=== PATIENT | male | born 1950 | race Caucasian/White ===

== ENCOUNTER → 2024-03-17 09:18 | Outpatient (REF) | payer MEDICARE, BC, SELFPAY ==
[2024-03-17 11:48] LABS: % Basophils 0.2 % (0-2); % Eosinophils 1.5 % (0-6); % Immature Granulocytes 0.2 % (0-0.5); % Lymphocytes 15.5 % (20.5-51.1); % Monocytes 5.7 % (1.7-9.3); % Neutrophils 76.9 % (42.2-75.2); Absolute Eosinophils 0.2 10^3/uL (0-0.7); Absolute Lymphocytes 1.5 10^3/uL (1.2-3.4); Absolute Monocytes 0.6 10^3/uL (0.1-0.6); Absolute Neutrophils 7.4 10^3/uL (1.4-6.5); Hematocrit 47.6 % (39.0-52.0); Hemoglobin 16.2 g/dL (13.0-18.0); Mean Corpuscular Hgb 30.5 pg (27.0-31.0); Mean Corpuscular Volume 89.5 fL (80.0-94.0); Nucleated Red Blood Cells % 0 % (-); Platelet Count 191 10^3/uL (130-400); Red Blood Cell Count 5.32 10^6/uL (4.70-6.10); Red Cell Dist. Width 12.5 % (11.5-14.5); White Blood Cell Count 9.7 10^3/uL (4.8-10.8)
[2024-03-17 12:05] LABS: ALT (SGPT) < 10 U/L (0-50); AST (SGOT) 21 U/L (17-59); Albumin 4.3 g/dl (3.5-5.0); Blood Urea Nitrogen 28 mg/dl (9-20); Calcium 9.4 mg/dl (8.4-10.2); Carbon Dioxide 32 mmol/L (22-30); Chloride 100 mmol/L (98-107); Glucose 112 mg/dl (70-99); HDL Cholesterol 48 mg/dl; LDL Cholesterol, Calculated 70 mg/dl; Phosphorus 2.9 mg/dl (2.5-4.5); Potassium 3.9 mmol/L (3.5-5.1); Sodium 140 mmol/L (135-145); Total Cholesterol 131 mg/dl (50-199); Triglyceride 67 mg/dl (10-149); Very Low Density Lipoprotein 13 mg/dl (0-30); eGFR > 60.00
== END ==
LOC: HWLAB 09:18
PROVIDERS: ATTENDING PHYSICIAN Internal Medicine Cardiovascular Disease; FAMILY PHYSICIAN Family Medicine
DX: I10 Essential (primary) hypertension (principal); D68.69 Other thrombophilia; E78.5 Hyperlipidemia, unspecified
CPT/HCPCS: 36415; 80061; 80069; 84450; 84460; 85025

== ENCOUNTER → 2024-05-10 14:35 | Outpatient (REF) | payer MEDICARE, BC, SELFPAY ==
[2024-05-10 15:55] LABS: Erythrocyte Sed Rate 9 mm/hour (0-20)
[2024-05-10 16:03] LABS: ALT (SGPT) 11 U/L (0-50); AST (SGOT) 21 U/L (17-59); Albumin 4.2 g/dl (3.5-5.0); Alkaline Phosphatase 70 U/L (38-126); Blood Urea Nitrogen 26 mg/dl (9-20); Calcium 9.3 mg/dl (8.4-10.2); Carbon Dioxide 29 mmol/L (22-30); Chloride 100 mmol/L (98-107); Glucose 127 mg/dl (70-99); Potassium 4.1 mmol/L (3.5-5.1); Sodium 138 mmol/L (135-145); Total Bilirubin 0.7 mg/dl (0.2-1.3); Total Protein 6.9 g/dl (6.3-8.2); eGFR > 60.00
[2024-05-10 16:20] LABS: Vitamin D, 25-OH*** 37.7 ng/mL (30-80)
[2024-05-10 16:33] LABS: TSH 1.64 uIU/ml (0.47-4.68)
[2024-05-10 17:09] LABS: Folate 6.6 ng/ml (2.76-20); Vitamin B12 292 pg/ml (239-931)
== END ==
LOC: REG 14:35
PROVIDERS: ATTENDING PHYSICIAN Psychiatry & Neurology Neurology; FAMILY PHYSICIAN Family Medicine
DX: G20.A1 Parkinson's disease without dyskinesia, without mention of fluctuations (principal); I10 Essential (primary) hypertension; I48.20 Chronic atrial fibrillation, unspecified; R60.0 Localized edema; D51.9 Vitamin B12 deficiency anemia, unspecified; Z79.899 Other long term (current) drug therapy; Z78.9 Other specified health status
CPT/HCPCS: 36415; 80053; 82306; 82607; 82652; 82746; 84425; 84443; 85652; 86141

== ENCOUNTER → 2024-05-13 11:37 | Outpatient (REF) | payer MEDICARE, BC, SELFPAY ==
[2024-05-13 13:35] LABS: Urine Albumin Negative (Neg - Trace); Urine Bilirubin Negative (Negative); Urine Character Clear (Clear); Urine Color Yellow; Urine Glucose Negative (Negative); Urine Ketone 1+ (Negative); Urine Leukocyte Negative (Negative); Urine Nitrite Negative (Negative); Urine Occult Blood Negative (Negative); Urine Specific Gravity 1.015 (<1.030); Urine Urobilinogen Negative (Neg - 1+)
[2024-05-13 15:56] LABS: Urine Sodium 201 mmol/L (30-90)
== END ==
LOC: REG 11:37
PROVIDERS: ATTENDING PHYSICIAN Psychiatry & Neurology Neurology; FAMILY PHYSICIAN Family Medicine
DX: G20.A1 Parkinson's disease without dyskinesia, without mention of fluctuations (principal)
CPT/HCPCS: 81003; 82570; 84300

== ENCOUNTER → 2024-05-31 07:22 | Outpatient (REF) | payer MEDICARE, BC, SELFPAY | LOC: DHCBC/DCA 07:22 | PROVIDERS: ATTENDING PHYSICIAN Internal Medicine Cardiovascular Disease; FAMILY PHYSICIAN Family Medicine | DX: Z01.810 Encounter for preprocedural cardiovascular examination (principal); R06.09 Other forms of dyspnea | CPT/HCPCS: 78452; 93017; A9500; J2785 ==

== ENCOUNTER → 2024-06-03 13:57 | Outpatient (REF) | payer MEDICARE, BC, SELFPAY | LOC: HWRCS 13:57 | PROVIDERS: ATTENDING PHYSICIAN Internal Medicine Cardiovascular Disease; FAMILY PHYSICIAN Family Medicine | DX: Z01.810 Encounter for preprocedural cardiovascular examination (principal); R06.09 Other forms of dyspnea | CPT/HCPCS: 93306 ==

== ENCOUNTER → 2024-07-12 09:55 | Outpatient (REF) | payer MEDICARE, BC, SELFPAY | LOC: RCS 09:55 | PROVIDERS: ATTENDING PHYSICIAN Internal Medicine Cardiovascular Disease; FAMILY PHYSICIAN Family Medicine | DX: R00.1 Bradycardia, unspecified (principal); R42 Dizziness and giddiness | CPT/HCPCS: 93225; 93226 ==

== ENCOUNTER → 2024-07-21 14:32 | Outpatient (REF) | payer MEDICARE, BC, SELFPAY ==
[2024-07-21 15:39] LABS: % Basophils 0.3 % (0-2); % Eosinophils 5.5 % (0-6); % Immature Granulocytes 0.8 % (0-0.5); % Lymphocytes 18.8 % (20.5-51.1); % Monocytes 7.9 % (1.7-9.3); % Neutrophils 66.7 % (42.2-75.2); Absolute Eosinophils 0.3 10^3/uL (0-0.7); Absolute Immature Granulocytes 0.1 10^3/uL (0-0.05); Absolute Lymphocytes 1.2 10^3/uL (1.2-3.4); Absolute Monocytes 0.5 10^3/uL (0.1-0.6); Absolute Neutrophils 4.2 10^3/uL (1.4-6.5); Hematocrit 45.9 % (39.0-52.0); Hemoglobin 15.8 g/dL (13.0-18.0); Mean Corp Hgb Conc. 34.4 g/dL (33.0-37.0); Mean Corpuscular Hgb 30.5 pg (27.0-31.0); Mean Corpuscular Volume 88.6 fL (80.0-94.0); Mean Platelet Volume 9.8 fL (7.4-10.4); Nucleated Red Blood Cells % 0 % (-); Platelet Count 164 10^3/uL (130-400); Red Blood Cell Count 5.18 10^6/uL (4.70-6.10); Red Cell Dist. Width 12.8 % (11.5-14.5); White Blood Cell Count 6.2 10^3/uL (4.8-10.8)
[2024-07-21 16:29] LABS: ALT (SGPT) < 10 U/L (0-50); AST (SGOT) 20 U/L (17-59); Albumin 4.3 g/dl (3.5-5.0); Alkaline Phosphatase 70 U/L (38-126); Blood Urea Nitrogen 19 mg/dl (9-20); Calcium 9.2 mg/dl (8.4-10.2); Carbon Dioxide 27 mmol/L (22-30); Chloride 96 mmol/L (98-107); Glucose 116 mg/dl (70-99); Potassium 3.7 mmol/L (3.5-5.1); Sodium 135 mmol/L (135-145); Total Protein 6.8 g/dl (6.3-8.2); eGFR > 60.00
== END ==
LOC: REG 14:32
PROVIDERS: ATTENDING PHYSICIAN Nurse Practitioner Family; FAMILY PHYSICIAN Family Medicine
DX: G20.A1 Parkinson's disease without dyskinesia, without mention of fluctuations (principal); R41.0 Disorientation, unspecified
CPT/HCPCS: 36415; 80053; 85025

== ENCOUNTER → 2024-07-28 11:25 | Outpatient (REF) | payer MEDICARE, BC, SELFPAY | LOC: RAD 11:25 | PROVIDERS: ATTENDING PHYSICIAN Nurse Practitioner Family; FAMILY PHYSICIAN Family Medicine | DX: R41.0 Disorientation, unspecified (principal); G20.A1 Parkinson's disease without dyskinesia, without mention of fluctuations | CPT/HCPCS: 70470; Q9967 ==

== ENCOUNTER 2024-10-03 15:09 | Emergency (ER) | payer MEDICARE, BC, SELFPAY ==
[2024-10-03 15:15] VITALS: BP 146/80
--- NOTE | 2024-10-03 16:56 | ED.GENMED ---
History of Present Illness
General
Chief Complaint: Head Injury
Source: patient and spouse
Time Seen by Provider: 10/03/24 16:46
History of Present Illness
History of Present Illness:
73-year-old male with past medical history of Parkinson's disease, atrial fibrillation and hyperlipidemia presenting to the emergency department for evaluation after he accidentally tripped on the carpet falling forward onto the left side of his
face, left shoulder and knee. brought patient to the ER after she noticed the contusion just above the left orbit with concern for head injury. Patient states his knee and shoulder otherwise feel fine. There was no loss of consciousness,
vomiting, visual changes or any other injury sustained.
Past History
Past History
ED Past Medical History: Arrthythmia (afib on Coumadin), Asthma, HTN and Hypercholesterolemia
ED Past Surgical History: Appendectomy
Social History
Tobacco: Non-smoker
Alcohol: None
Drug: None
Personal:
Living: with family
Employment: Employed
Review of Systems
Review of Systems
All Other Systems: ROS reviewed and negative except as documented in HPI and ROS
Phy Exam
Physical Exam
Physical Exam:
GENERAL: Alert , in no apparent distress
EYE: conjunctiva clear, EOMI, pupils 4mm b/l
Head: contusion just proximal to superior orbit
NECK: Supple,
ENT: mmm.
LUNGS: no acute respiratory distress
NEUROLOGICAL: Alert and oriented
SKIN: Warm and dry, abrasion to left anterior knee
MUSCULOSKELETAL: well perfused. able to ROM left shoulder at baseline which is slightly limited due to known rotator cuff injury
PSYCH: Normal and appropriate interaction.
Scores
Heart Failure Risk
Heart Failure Risk Score: Not Applicable
Heart Score for Chest Pain Patients
STEMI patient?: Not applicable
Withdrawal Assessment of Alcohol
Withdrawal Assessment Completed?: Not applicable
Course
Orders/Labs/Results
Orders:
Orders
10/03/24 15:19
CT Head W/o Iv Contrast Urgent
Comment:
Reason For Exam: injury, fall
Vital Signs
Initial and Last Documented VS:
Initial Vital Signs
Temp Pulse Resp BP Pulse Ox
97.6 F 65 18 146/80 99
10/03/24 15:15 10/03/24 15:15 10/03/24 15:15 10/03/24 15:15 10/03/24 15:15
Last Documented Vital Signs
Temp Pulse Resp BP Pulse Ox
97.6 F 65 18 146/80 99
10/03/24 15:15 10/03/24 15:15 10/03/24 15:15 10/03/24 15:15 10/03/24 15:15
MDM/Problems Addressed
Differential Diagnosis Includes:
Minor head injury/contusion, concussion, intracranial bleeding, superficial abrasion
MDM/Problems Addressed:
73-year-old male presenting to the emergency department for evaluation following head injury that occurred in accidental trip and fall. Patient on Eliquis. Head CT ordered which is ultimately negative for any acute intracranial pathology. Patient
feels well and is requesting to be discharged home. Return precautions discussed. Patient to continue taking Eliquis as directed.
Chronic conditions affecting care: Arrhythmia
*Radiology
Radiology exam reviewed: radiology read reviewed
*Pulse Oximetry
Patient hypoxic: no
*Critical Care Note
Total Time (30-74mins, 75-104mins- exclusive of procedures): Not Applicable
ED Attending Note
-
Portions of this chart may have been created with voice recognition software.� Occasional wrong word or��sound alike� substitutions may have occurred due to the inherent limitations of voice recognition software.
Discharge Plan
Departure
Patient Disposition: Home (Routine Discharge)
Date of Disposition: 10/03/24
Time of Disposition: 16:56
Patient with high blood pressure during this ER visit?: No
Discharge Problem:
Head injury, Abrasion of knee, left
Instructions: Head Injury in Adults (DC)
Prescriptions:
No Action
warfarin [Coumadin] 6 MG tablet
6 mg PO DAILY
diltiazem HCl 120 MG capsule,ext.rel 24h degradable
120 mg PO DAILY
gabapentin 100 MG capsule
100 mg PO TID
Interventions
Interventions:
*Risk Screen - Suicide Last Done: 10/03/24 15:17
*General Assessment Last Done: 10/03/24 15:16
*Neglect/Abuse Screening Last Done: 10/03/24 15:17
*ED COVID-19 Vaccine History Last Done: 10/03/24 15:17
*Nursing Disposition Last Done: 10/03/24 17:05
ED- Neurological Assessment Last Done: 10/03/24 16:46
ED-Skin Assessment Last Done: 10/03/24 16:46
Discharge Date and Time
Discharge Date/Time: 10/03/24 17:26
Print Language: GHANAIAN
== END 2024-10-03 17:26 | disposition home or self-care (01) ==
LOC: EMR 15:09
PROVIDERS: EMERGENCY PHYSICIAN Emergency Medicine
DX: S00.83XA Contusion of other part of head, initial encounter (principal); S80.212A Abrasion, left knee, initial encounter; W01.0XXA Fall on same level from slipping, tripping and stumbling without subsequent striking against object, initial encounter; G20.A1 Parkinson's disease without dyskinesia, without mention of fluctuations; I48.91 Unspecified atrial fibrillation; E78.00 Pure hypercholesterolemia, unspecified; I10 Essential (primary) hypertension; J45.909 Unspecified asthma, uncomplicated; Z79.01 Long term (current) use of anticoagulants
CPT/HCPCS: 99284; 70450

== ENCOUNTER 2025-02-19 07:33 | Emergency (ER) | payer MEDICARE, BC, SELFPAY ==
[2025-02-19 07:38] VITALS: BP 115/63
[2025-02-19 07:40] VITALS: BMI 41.3
[2025-02-19 08:00] VITALS: BP 104/51
[2025-02-19 08:54] LABS: Hematocrit 42.8 % (39.0-52.0); Hemoglobin 14.4 g/dL (13.0-18.0); Mean Corp Hgb Conc. 33.6 g/dL (33.0-37.0); Mean Corpuscular Volume 88.6 fL (80.0-94.0); Nucleated Red Blood Cells % 0 % (-); Platelet Count 144 10^3/uL (130-400); Red Cell Dist. Width 13.3 % (11.5-14.5)
[2025-02-19] MEDS: NSS 250 IV (08:57)
[2025-02-19 09:00] VITALS: BP 113/65
[2025-02-19 09:21] LABS: ALT (SGPT) 19 U/L (0-50); AST (SGOT) 28 U/L (17-59); Albumin 3.9 g/dl (3.5-5.0); Alkaline Phosphatase 99 U/L (38-126); Blood Urea Nitrogen 23 mg/dl (9-20); Calcium 9.1 mg/dl (8.4-10.2); Carbon Dioxide 26 mmol/L (22-30); Chloride 106 mmol/L (98-107); Estimated Creatinine Clearance 79 ml/min; Glucose 126 mg/dl (70-99); Potassium 4.4 mmol/L (3.5-5.1); Sodium 139 mmol/L (135-145); Total Protein 6.4 g/dl (6.3-8.2); eGFR > 60.00
--- NOTE | 2025-02-19 09:39 | ED.GENMED ---
History of Present Illness
General
Chief Complaint: Fall
Source: patient
Exam Limitations: none
Time Seen by Provider: 02/19/25 08:06
Nursing documentation reviewed up to this point in time: agreed with
History of Present Illness
History of Present Illness:
see MDM
Past History
Past History
ED Past Medical History: Arrthythmia (afib on Coumadin), Asthma, HTN and Hypercholesterolemia
ED Past Surgical History: Appendectomy
Social History
Tobacco: Non-smoker
Alcohol: None
Drug: None
Personal:
Living: with family
Employment: Employed
Review of Systems
Review of Systems
Allergies reviewed?: Yes
All Other Systems: Not applicable
Phy Exam
Physical Exam
Physical Exam:
see MDM
Course
Orders/Labs/Results
Orders:
Orders
02/19/25 07:[address] [CT Head W/o Iv Contrast] Urgent
Comment:
Reason For Exam: fall on eliquis
02/19/25 08:34
Knee, Left 4 or More Views [CR Knee - Left 4 Or More View*] Urgent
Comment:
Reason For Exam: anterior knee pain, fall parkinsons
Knee, Right 4 or More Views [CR Knee- Right 4 Or More View*] Urgent
Comment:
Reason For Exam: knee pain fall parkinsons
02/19/25 08:35
0.9% Sodium Chloride 250 ml [Nss] 250 ml IV BOLUS
02/19/25 08:40
Complete Blood Count/With Diff Urgent
Comprehensive Metabolic Panel Urgent
Abnormal Lab Results
02/19/25
08:40
Abs Immat Gran (auto) 0.1 H 10^3/uL
(0-0.05)
Absolute Neuts (auto) 7.1 H 10^3/uL
(1.4-6.5)
Absolute Lymphs (auto) 0.9 L 10^3/uL
(1.2-3.4)
Immature Gran % 0.6 H %
(0-0.5)
Neutrophils % 81.0 H %
(42.2-75.2)
Lymphocytes % 10.7 L %
(20.5-51.1)
BUN 23 H mg/dl
(9-20)
Glucose 126 H mg/dl
(70-99)
02/19/25 08:40
02/19/25 08:40
Vital Signs
Initial and Last Documented VS:
Initial Vital Signs
Temp Pulse Resp BP Pulse Ox
36.8 C 63 16 115/63 97
02/19/25 07:38 02/19/25 07:38 02/19/25 07:38 02/19/25 07:38 02/19/25 07:38
Last Documented Vital Signs
Temp Pulse Resp BP Pulse Ox
36.8 C 66 16 128/73 100
02/19/25 07:38 02/19/25 10:12 02/19/25 08:02 02/19/25 10:00 02/19/25 10:00
MDM/Problems Addressed
Differential Diagnosis Includes:
see MDM
MDM/Problems Addressed:
Note:
CHIEF COMPLAINT(S)
Fall with suspected knee injury and decreased urine output.
HISTORY OF PRESENT ILLNESS
The patient is a 74-year-old male with a known history of Parkinsons disease who experienced a fall this morning. pt has no concept of time usually and was up and about early this morning. has cameras in the house which captured him around 630
am in the living room without his cane which he is supposed to use. after that she cannot see him on camera.
around 730 am pt's neighbor called 911 after hearing pt brissa for help.
was notified by family that he had fallen and she came to him.
he says he was trying to get back into the house after being outside and stepped up the 2 steps but fell onto his knees. he was kneeling there for a little while and tried then to use his elbows to push himself up but slipped and hit his forehead
and nose on the door jam.
no LOC
The patient denies any facial or neck pain following the fall. He expresses feeling more tired than usual, attributing it to the mornings events, stating, 'I feel tired...I think it has been raised for a lot.' The knees were bruised and red,
suspected due to pressure from the fall.
Post-fall, the patient denies any pain in the abdomen, chest, or other areas. However, adalberto says the past few days he has been a little 'off' and she wonders if either he is dehydrated or has a UTI.
it has been more challenging to get him to drink fluids
she does not feel that he is acutely altered currently
no fever, chills.
ADDITIONAL HISTORY OBTAINED FROM SOURCES OTHER THAN THE PATIENT
A neighbor reported hearing the patient call for help and subsequently called 911. The patients son, an officer, was notified through the alert system and informed the family about the 911 call.
SOCIAL DETERMINANTS AFFECTING HEALTH
The patient�s son works as an officer in the area and was informed about the 911 call via the alert system. This implies some level of support available through family members.
REVIEW OF SYSTEMS
- Constitutional: Increased fatigue, potential dehydration.
- Musculoskeletal: Bruised and red knees noted post-fall.
- Genitourinary: Darker urine reported.
- Neurological: Reports of altered mental status over the last few days.
PHYSICAL EXAM
- Nursing notes reviewed and vital signs reviewed.
GENERAL: Alert , in no apparent distress
HEAD: R forehead hematoma with abrasion superficial mild tenderness
NECK: no midline tenderness, active ROM intact, no paraspinal muscle tenderness;
EYE: pupils equal and reactive, EOMs intact.
ENT: o/p clr, mmm. no hemotympanum
nasal bridge abrasion, nontender nasal bones; no epistaxis
CARDIAC: Regular rate and rhythm, no edema
LUNGS: Clear breath sounds bilaterally, no acute respiratory distress, no wheezes/rales/rhonchi
ABDOMEN: Soft, without focal tenderness, no r/g, no cvat
NEUROLOGICAL: Alert and oriented, no focal neuro deficits, CN intact, 5/5 strength, sensation intact, parkinsons speech
SKIN: Warm and dry, abrasion/hematoma forehead, nose and knees B/L
MUSCULOSKELETAL: redness and abrasions to b/l anterior knees; no swelling
able to flex knees
no hip tenderness, hips normal
PSYCH: Normal and appropriate interaction.
PLAN
1. Obtain x-rays of the knees to assess for any structural damage due to the fall.
2. Conduct laboratory tests to evaluate potential dehydration and altered mental status.
3. Initiate a straight catheterization to obtain a urine sample for analysis, given the patient�s report of darker urine.
DIFFERENTIAL DIAGNOSIS
The Differential Diagnosis includes, in no particular order and is not limited to:
1. Musculoskeletal injury due to fall
2. Urinary tract infection
3. Dehydration
4. Acute renal failure
5. Rhabdomyolysis
6. Secondary neurological changes due to Parkinson�s disease
7. Metabolic disturbance
8. Orthostatic hypotension
9. Syncope
10. Medication side effects
Note:
Disposition:
SUMMARY OF ENCOUNTER
The patient, a 74-year-old male with a history of Parkinsons disease, presented to the emergency department following a fall. The fall occurred early in the morning when the patient, without his cane, attempted to step into his house and landed on
his knees. Additionally, he fell forward, hitting his face on the ground but did not lose consciousness. His neighbor heard him calling for help and called 911. Paramedics were present and lifted him up. On physical examination, he had abrasions on
his knees, a forehead hematoma, and a superficial abrasion on his nose, but no facial bony tenderness. The patient denied significant knee pain, hip pain, or headache. His mental status was at baseline, though his noted increased confusion over
the past few days. His also expressed concern about potential dehydration due to difficulty in fluid intake. Laboratory tests showed his blood urea nitrogen (BUN) was at baseline (23 mg/dL) with no fever or leukocytosis. Although IV fluids were
administered, his ultimately declined straight catheterization for a urine sample. They plan to follow up with their family physician to provide a urine sample collected at home for possible evaluation of dehydration or urinary issues. The
patient will be assessed for standing before discharge.
ASSESSMENT
The patient was assessed for potential musculoskeletal injury from the fall, possible dehydration, and differential mental status changes related to Parkinson�s disease.
PLAN
1. Ensure patient can stand safely before discharge.
2. Discharge with instructions to follow up with the family physician for collection of a urine sample to assess for dehydration or urinary tract infection.
INDEPENDENT REVIEW OF LABS AND INTERPRETATION OF TESTS
My independent review of BUN indicates it is at baseline (23 mg/dL), and his complete blood count shows no elevated white count.
MEDICATION RECONCILIATION
Administered IV fluids in the emergency department.
MEDICAL DECISION MAKING
- Complexity of Data Reviewed: Chronic conditions affecting care: Parkinson�s disease. Differential Diagnosis includes musculoskeletal injury due to fall, urinary tract infection, dehydration, acute renal failure, secondary neurological changes due
to Parkinson�s disease, and potential metabolic disturbance.
- Data:
- Category 2: Clinical information was obtained from an independent historian. The patients provided details about altered mental status and concerns about dehydration.
- Category 3: Discussion of management with the patients regarding follow-up plans and decision to collect a urine sample at home.
- Risk: Consideration of Admission/Observation: Escalation of care including admission/observation was considered given the complexity and risk of the patients presenting complaint, exam findings, and underlying comorbidities. However, ultimately it
was decided the patient is safe for outpatient management with close follow-up. Reasoning: Work-up did not reveal any acute life/organ-threatening processes, the patients symptoms were well-controlled upon reevaluation, reexamination was reassuring,
vitals were stable, and the patient and family were agreeable with discharge and reliable for follow-up.
DIAGNOSIS
- Fall-related musculoskeletal injury, unspecified � ICD-10 code W19.XXXA
- Dehydration � ICD-10 code E86.0
- Parkinsons disease � ICD-10 code G20
*Pulse Oximetry
SaO2: 98
Oxygen Mode of Delivery: Room air
Patient hypoxic: no (100)
*Critical Care Note
Total Time (30-74mins, 75-104mins- exclusive of procedures): Not Applicable
ED Attending Note
-
Portions of this chart may have been created with voice recognition software.� Occasional wrong word or��sound alike� substitutions may have occurred due to the inherent limitations of voice recognition software.
Discharge Plan
Departure
Patient Disposition: Home (Routine Discharge)
Date of Disposition: 02/19/25
Time of Disposition: 09:53
Patient with high blood pressure during this ER visit?: No
Condition: Fair
Covid-19: Not Applicable
Discharge Problem:
Fall, Minor closed head injury, Contusion of knee
Instructions: Head Injury in Adults (DC), Contusion (DC)
Prescriptions:
No Action
warfarin [Coumadin] 6 MG tablet
6 mg PO DAILY
diltiazem HCl 120 MG capsule,ext.rel 24h degradable
120 mg PO DAILY
gabapentin 100 MG capsule
100 mg PO TID
Referrals:
Berenice Senior MD [Family Provider, Family Practice] - Follow up in 2-3 days
Activity Restrictions/Additional Instructions:
Your CAT scan of your brain was negative for any signs of trauma. Your x-rays of your knee showed no fractures. THE RADIOLOGIST WILL LOOK AT THESE TODAY AND WE WILL CALL IF THEY SEE ANY ABNORMALITIES. You have some bruising and abrasions. Keep
them clean and dry. Ice off-and-on. Tylenol for pain. The blood work was fairly reassuring and you are not significantly dehydrated
Follow-up with your family doctor. Make sure to use your cane.
GET YOUR URINE CHECKED IF YOU CONTINUE TO HAVE ANY CONFUSION/SYMPTOMS
WE OFFERED TESTING TODAY BUT YOU DEFERRED
RETURN FOR: FEVER, VOMITING, CONFUSION, WEAKNESS, INABILTIY TO WALK, HEADACHE OR ANY CONCERNS.
Interventions
Interventions:
*Risk Screen - Suicide Last Done: 02/19/25 07:40
*General Assessment Last Done: 02/19/25 07:38
*Neglect/Abuse Screening Last Done: 02/19/25 07:40
*ED- Fall Risk Assessment Last Done: 02/19/25 07:38
*ED COVID-19 Vaccine History Last Done: 02/19/25 07:38
*Nursing Disposition Last Done: 02/19/25 10:12
ED-Musculoskeletal Assessment Last Done: 02/19/25 07:40
ED- Neurological Assessment Last Done: 02/19/25 07:40
ED-Skin Assessment Last Done: 02/19/25 07:40
Discharge Date and Time
Discharge Date/Time: 02/19/25 10:13
Print Language: CUBAN
[2025-02-19 10:00] VITALS: BP 128/73
== END 2025-02-19 10:13 | disposition home or self-care (01) ==
LOC: EMR 07:33
PROVIDERS: Physician Assistant; EMERGENCY PHYSICIAN Emergency Medicine; FAMILY PHYSICIAN Family Medicine
DX: S09.90XA Unspecified injury of head, initial encounter (principal); S80.02XA Contusion of left knee, initial encounter; S80.01XA Contusion of right knee, initial encounter; I48.91 Unspecified atrial fibrillation; I10 Essential (primary) hypertension; E78.00 Pure hypercholesterolemia, unspecified; J45.909 Unspecified asthma, uncomplicated; G20.A1 Parkinson's disease without dyskinesia, without mention of fluctuations; Z79.01 Long term (current) use of anticoagulants; W01.198A Fall on same level from slipping, tripping and stumbling with subsequent striking against other object, initial encounter; Y93.01 Activity, walking, marching and hiking; Y92.008 Other place in unspecified non-institutional (private) residence as the place of occurrence of the external cause
CPT/HCPCS: 99284; 96360; 70450; 73564; 80053; 85025

== ENCOUNTER 2025-04-11 07:58 | Emergency (ER) | payer MEDICARE, BC, SELFPAY ==
[2025-04-11 08:01] VITALS: BP 149/80
[2025-04-11 10:06] VITALS: BMI 39.6
[2025-04-11 10:09] VITALS: BP 144/68
--- NOTE | 2025-04-11 10:22 | ED.GENMED ---
History of Present Illness
General
Chief Complaint: Head Injury
Source: patient and spouse
Exam Limitations: none
Time Seen by Provider: 04/11/25 09:57
History of Present Illness
History of Present Illness:
74yoM with a history of atrial fibrillation on Eliquis and deep brain stimulator for tremor presenting with his for evaluation of a head injury about 4 hours ago. Patient was standing and leaning forward trying to take off his shirt when he
lost his balance and fell forward. He struck his head on a space heater. There was no loss of consciousness. Patient currently has a slight headache but is otherwise asymptomatic. He denies any neck or back pain. He has had 4 falls within the
past 2 months. He is scheduled to see his food specialist later this week to discuss possible Watchman procedure so that he may get off of the Eliquis. He has home PT/OT twice weekly.
Past History
Past History
ED Past Medical History: Arrthythmia (afib on Coumadin), Asthma, HTN and Hypercholesterolemia
ED Past Surgical History: Appendectomy
Social History
Tobacco: Non-smoker
Alcohol: None
Drug: None
Personal:
Living: with family
Employment: Employed
Phy Exam
General Physical Exam
General Presentation: well appearing and no apparent distress
General Skin: warm and dry
General Habitus: normal and elderly
General Mental: alert
ENT Exam
ENT Exam: other (Minor frontal abrasions)
Eye Exam
Eye Exam: PERRL and conjunctiva normal
Pulmonary Exam
Pulmonary Exam: lungs clear, no respiratory distress, no rales, chest non tender, no crackles, no rhonchi and no wheezing
Gastrointestinal Exam
Gastrointestinal Exam: non tender and soft
Neurological Exam
Neurological Exam: alert
Bath Coma Scale
Eye Opening: Spontaneous
Verbal Response: Oriented
Motor Response: Obeys Commands
GCS Total Score: 15
Musculoskeletal Exam
Musculoskeletal Exam: other (No C/T/L spine tenderness)
Skin Exam
Skin Exam: normal color and warm/dry
Psychiatric Exam
Psychiatric Exam: normal mood/affect
Course
Orders/Labs/Results
Orders:
Orders
04/11/25 08:04
CT Head W/o Iv Contrast Urgent
Comment:
Reason For Exam: fall on eliquis
Cervical Spine wo Contrast CT [CT Cervical Spine W/o Iv Contr] Urgent
Comment:
Reason For Exam: fall on eliquis
Vital Signs
Initial and Last Documented VS:
Initial Vital Signs
Temp Pulse Resp BP Pulse Ox
97.5 F 60 16 149/80 97
04/11/25 08:01 04/11/25 08:01 04/11/25 08:01 04/11/25 08:01 04/11/25 08:01
Last Documented Vital Signs
Temp Pulse Resp BP Pulse Ox
97.5 F 69 18 144/86 98
04/11/25 08:01 04/11/25 10:09 04/11/25 10:09 04/11/25 10:49 04/11/25 10:45
MDM/Problems Addressed
Differential Diagnosis Includes:
74yoM here after a fall. Leaning forward taking shirt off when he lost his balance and fell. +Head strike. On Eliquis. Minor headache but otherwise asymptomatic. He is awake and alert. Minor frontal abrasions on exam without other signs of injury.
Differential diagnosis includes: closed head injury, concussion, intracranial hemorrhage, fracture
CT head and cervical spine obtained which are negative for injuries. and patient not interested in short term rehab and he participates in home PT/OT twice weekly. Patient stable for discharge with PCP f/u.
*Pulse Oximetry
SaO2: 99
Oxygen Mode of Delivery: Room air
Patient hypoxic: no
*Critical Care Note
Total Time (30-74mins, 75-104mins- exclusive of procedures): Not Applicable
ED Attending Note
-
Portions of this chart may have been created with voice recognition software.� Occasional wrong word or��sound alike� substitutions may have occurred due to the inherent limitations of voice recognition software.
Discharge Plan
Departure
Patient Disposition: Home (Routine Discharge)
Date of Disposition: 04/11/25
Time of Disposition: 10:39
Patient with high blood pressure during this ER visit?: Yes
Discharge Problem:
Ground-level fall, Closed head injury
Instructions: Head Injury in Adults (DC), Preventing falls in adults
Prescriptions:
No Action
warfarin [Coumadin] 6 MG tablet
6 mg PO DAILY
diltiazem HCl 120 MG capsule,ext.rel 24h degradable
120 mg PO DAILY
gabapentin 100 MG capsule
100 mg PO TID
Referrals:
Berenice Senior MD [Family Provider, Family Practice]
Activity Restrictions/Additional Instructions:
Imaging did not show any brain bleed or fractures.
Please follow-up with your family doctor. Return to the ER with any new or worsening symptoms.
Interventions
Interventions:
*Risk Screen - Suicide Last Done: 04/11/25 08:01
*General Assessment Last Done: 04/11/25 10:10
*Neglect/Abuse Screening Last Done: 04/11/25 08:01
*ED- Fall Risk Assessment Last Done: 04/11/25 10:10
*ED COVID-19 Vaccine History Last Done: 04/11/25 10:10
*ED Influenza Vaccine History Last Done: 04/11/25 10:10
*Nursing Disposition Last Done: 04/11/25 10:52
ED- Neurological Assessment Last Done: 04/11/25 10:12
ED-Skin Assessment Last Done: 04/11/25 10:12
Discharge Date and Time
Discharge Date/Time: 04/11/25 11:05
Print Language: [email or web address]
[2025-04-11 10:49] VITALS: BP 144/86
== END 2025-04-11 11:05 | disposition home or self-care (01) ==
LOC: EMR 07:58
PROVIDERS: EMERGENCY PHYSICIAN Emergency Medicine; FAMILY PHYSICIAN Family Medicine
DX: S09.90XA Unspecified injury of head, initial encounter (principal); W01.198A Fall on same level from slipping, tripping and stumbling with subsequent striking against other object, initial encounter; E78.00 Pure hypercholesterolemia, unspecified; I10 Essential (primary) hypertension; J45.909 Unspecified asthma, uncomplicated; I48.91 Unspecified atrial fibrillation; Z79.01 Long term (current) use of anticoagulants; Z96.82 Presence of neurostimulator
CPT/HCPCS: 99284; 70450; 72125

== ENCOUNTER 2025-04-24 08:41 | Inpatient (IN) | payer MEDICARE, BC, SELFPAY ==
[2025-04-20 11:24] VITALS: BP 152/81
--- NOTE | 2025-04-20 12:40 | ED.GENMED ---
History of Present Illness
General
Chief Complaint: Change in Mental Status
Time Seen by Provider: 04/20/25 12:12
History of Present Illness
History of Present Illness:
74-year-old male with history of Parkinson's presents with his daughter for evaluation of mental status change worsening over the past 2 weeks. Daughter states that he has become increasingly less functional and more confused than normal. No
longer talking to the same degree from his baseline. Had a fall just over 1 week ago and was seen in the emergency department a negative CT scan. His outpatient neurologist through [facility] had requested he come to the emergency department and be
admitted for observation due to the worsening functional status. The patient offers no complaints at this time
Past History
Past History
ED Past Medical History: Arrthythmia (afib on Coumadin), Asthma, HTN and Hypercholesterolemia
ED Past Surgical History: Appendectomy
Social History
Tobacco: Non-smoker
Alcohol: None
Drug: None
Personal:
Living: with family
Employment: Employed
Review of Systems
Review of Systems
Allergies reviewed?: Yes
All Other Systems: ROS reviewed and negative except as documented in HPI and ROS
Phy Exam
Physical Exam
Physical Exam:
GEN: Well appearing, NAD, WDWN
HEENT: Oral mucosa moist, no scleral icterus
Cardiac: Regular rate
Lung: No respiratory distress, no tachypnea
MSK: No gross deformity or injuries
Skin: Good color, no pallor or jaundice, no rashes
Neuro: Alert, oriented to self place and time, follows commands, moves all extremities freely, symmetric strength of bilateral upper and lower extremities
Psych: Calm, cooperative
Course
Orders/Labs/Results
Orders:
Orders
04/20/25 12:41
0.9% Sodium Chloride 1000 ml [Nss] 1,000 ml IV BOLUS
04/20/25 12:57
Complete Blood Count/With Diff Urgent
Comprehensive Metabolic Panel Urgent
Urinalysis Reflex To Culture Urgent
Date Specimen was Collected: 04/20/25
Time Specimen was Collected: 12:46
Abnormal Lab Results
04/20/25
12:57
Absolute Monos (auto) 0.7 H 10^3/uL
(0.1-0.6)
Lymphocytes % 18.9 L %
(20.5-51.1)
Carbon Dioxide 32 H mmol/L
(22-30)
Glucose 102 H mg/dl
(70-99)
04/20/25 12:57
04/20/25 12:57
Vital Signs
Initial and Last Documented VS:
Initial Vital Signs
Temp Pulse Resp BP Pulse Ox
97.6 F 57 18 152/81 98
04/20/25 11:24 04/20/25 11:24 04/20/25 11:24 04/20/25 11:24 04/20/25 11:24
Last Documented Vital Signs
Temp Pulse Resp BP Pulse Ox
97.6 F 57 18 151/71 98
04/20/25 11:24 04/20/25 11:24 04/20/25 11:24 04/20/25 13:07 04/20/25 14:00
MDM/Problems Addressed
MDM/Problems Addressed:
Patient with worsening mental status could be related to increased Seroquel recently. Outpatient neurologist requesting admission for MRI and medication titrations as he is not safe at home currently
*Pulse Oximetry
SaO2: 98
Oxygen Mode of Delivery: Room air
Patient hypoxic: no
*Critical Care Note
Total Time (30-74mins, 75-104mins- exclusive of procedures): Not Applicable
ED Attending Note
-
Portions of this chart may have been created with voice recognition software.� Occasional wrong word or��sound alike� substitutions may have occurred due to the inherent limitations of voice recognition software.
Discharge Plan
Departure
Patient Disposition: Admit
Date of Disposition: 04/20/25
Time of Disposition: 15:51
Admit to: Med/Surg
Presentation/result/management discussed w/ accepting MD/DO: Hospitalist
Discharge Problem:
Acute alteration in mental status
Prescriptions:
No Action
warfarin [Coumadin] 6 MG tablet
6 mg PO DAILY
diltiazem HCl 120 MG capsule,ext.rel 24h degradable
120 mg PO DAILY
gabapentin 100 MG capsule
100 mg PO TID
Referrals:
UNKNOWN - PT DOES,NOT KNOW [Family Provider]
Interventions
Interventions:
*Risk Screen - Suicide Last Done: 04/20/25 11:24
*General Assessment Last Done: 04/20/25 11:24
ED- Pulmonary Assessment Last Done: 04/20/25 11:57
ED- Neurological Assessment Last Done: 04/20/25 11:57
ED- Cardiac Assessment Last Done: 04/20/25 11:57
ED Swallowing Screen Last Done: 04/20/25 11:58
Discharge Date and Time
Print Language: SERBIAN
[2025-04-20] MEDS: NSS 1000 IV (12:58)
[2025-04-20 13:07] VITALS: BP 151/71
[2025-04-20 13:31] LABS: Hematocrit 48.0 % (39.0-52.0); Hemoglobin 15.9 g/dL (13.0-18.0); Mean Corp Hgb Conc. 33.1 g/dL (33.0-37.0); Mean Corpuscular Volume 90.9 fL (80.0-94.0); Nucleated Red Blood Cells % 0 % (-); Platelet Count 157 10^3/uL (130-400); Red Cell Dist. Width 13.0 % (11.5-14.5)
[2025-04-20 13:38] LABS: ALT (SGPT) < 10 U/L (0-50); AST (SGOT) 20 U/L (17-59); Albumin 4.3 g/dl (3.5-5.0); Alkaline Phosphatase 74 U/L (38-126); Blood Urea Nitrogen 15 mg/dl (9-20); Calcium 9.1 mg/dl (8.4-10.2); Carbon Dioxide 32 mmol/L (22-30); Chloride 99 mmol/L (98-107); Glucose 102 mg/dl (70-99); Potassium 4.6 mmol/L (3.5-5.1); Sodium 138 mmol/L (135-145); Total Protein 7.1 g/dl (6.3-8.2); eGFR > 60.00
[2025-04-20 14:00] VITALS: BP 147/86
[2025-04-20 14:28] LABS: Urine Character Clear (Clear)
--- NOTE | 2025-04-20 16:22 | HPS.HSE ---
Family Physician
-
Family Physician: NOT KNOW UNKNOWN - PT DOES
Chief Complaint
-
encephelopathy
History of Present Illness
74-year-old male past medical history of Parkinson disease, atrial fibrillation on Coumadin, presenting for change in mental status worsening over the past 2 weeks.
Over the past 2 weeks patient has had progressive episodes of confusion, memory impairment. He has also had agitation and sundowning at nighttime. He has had difficulties with memory for the past year. He has been off balance and unable to
ambulate. He has been having visual hallucinations. Recently his neurologist Dr. Roman increased his Seroquel to 100 mg at night.
He has also had weakness of his right lower extremity with foot drag for the past several weeks. No headache or visual symptoms or slurred speech or difficulty speaking.
He had a fall 1 week ago and was seen in the emergency room with negative CT scan of the head.
He was also had shortness of breath with exertion. No fevers or cough.
Patient saw his neurologist today Dr. Roman at [facility] who wanted him to be admitted for further workup and inability to take care of himself.
Medical History
Past Medical History
Past Medical History: Reports Other ( Parkinson disease, atrial fibrillation on Coumadin,)
Past Surgical History: Reports Other (hernia repair, appendcetomy )
Social History
Tobacco: Non-smoker
Alcohol: None
Drug: None
Family History
Family History: Not pertinent
Allergies / Home Medications
Allergies reflects when Allergies were last updated in [employer].
Home Medications with original date entered in [employer]
Allergy/Medication List:
Allergies
Allergy/AdvReac Type Severity Reaction Status Date / Time
benzonatate (From Tessalon Allergy Unknown Verified 04/20/25 11:24
Perles)
chlorhexidine Allergy Rash Verified 04/20/25 11:24
rotigotine Allergy Unknown Verified 04/20/25 11:24
Home Medications
apixaban 5 mg tablet (Eliquis) 5 mg PO BID 04/20/25
atorvastatin 10 mg tablet 10 mg PO DAILY 04/20/25
carbidopa 25 mg-levodopa 100 mg tablet 2 tab PO 0800,1200,1600,199904/20/25
cholecalciferol (vitamin D3) 25 mcg (1,000 unit) chewable tablet (Vitamin D3) 25 mcg PO DAILY@159904/20/25
clonazepam 0.5 mg tablet 0.5 mg PO QPM 04/20/25
clonazepam 1 mg tablet 1 mg PO DAILY@199904/20/25
clonazepam 1 mg tablet 1 mg PO HSPRN PRN repeat dose if wakes up during sleep 04/20/25
melatonin 5 mg tablet 10 mg PO HS 04/20/25
pimavanserin 34 mg capsule (Nuplazid) 34 mg PO DAILY@159904/20/25
quetiapine 25 mg tablet 100 mg PO DAILY@199904/20/25
sertraline 100 mg tablet 100 mg PO DAILY 04/20/25
Review of Systems
-
History Source: Patient
A 12 point ROS was completed and negative except as noted: Yes
Constitutional: Reports No Symptoms
EENT: Reports No Symptoms
Respiratory: Reports No Symptoms
Cardiac: Reports No Symptoms
Abdomen/GI: Reports No Symptoms
: Reports No Symptoms
Musculoskeletal: Reports No Symptoms
Skin: Reports No Symptoms
Neurological: Reports No Symptoms
Endocrine: Reports No Symptoms
Hematologic/Lymphatic: Reports No Symptoms
Psych: Reports No Symptoms
Physical Exam
Vital Signs
Vital Signs
Temp Pulse Resp BP Pulse Ox
97.6 F 57 18 151/71 98
04/20/25 11:24 04/20/25 11:24 04/20/25 11:24 04/20/25 13:07 04/20/25 14:00
Physical Exam
General: Well Developed, Well Nourished and No Apparent Distress
HEENT: NormoCephalic, Moist mucous membranes and Atraumatic
Respiratory: Clear
Cardiac: S1/S2 and Regular Rhythm; No Murmur or Rub
GI: Soft, Non Tender, Non Distended and Normal Bowel Sounds; No Organomegaly
Rectal: Deferred by Provider
Musculoskeletal: No Clubbing, No Cyanosis and No Edema
Skin: No Rash
Neuro: Nonfocal/grossly intact
Laboratory Results
-
04/20/25 12:57
04/20/25 12:57
Laboratory Results
Total Bilirubin 0.7 mg/dl (0.2-1.3) 04/20/25 12:57
AST 20 U/L (17-59) 04/20/25 12:57
ALT < 10 U/L (0-50) 04/20/25 12:57
Alkaline Phosphatase 74 U/L (38-126) 04/20/25 12:57
Data Reviewed
-
Lab Data: Labs Reviewed by me
Old Records: Reviewed
Impression/Plan
-
IMPRESSION:
PLAN:
# Acute metabolic encephalopathy possibly polypharmacy versus suspected worsening dementia likely Lewy body dementia
# Weakness of right lower extremity
-Urinalysis negative
-ER spoke with Dr. Roman who recommended MRI brain and decreasing Seroquel
-Decrease Seroquel from 100 mg back to 50 mg
- Check MRI brain to rule out CVA
- PT OT
# Ongoing dyspnea on exertion
- Check cardiac BNP, chest x-ray
- Pulse oximetry
- May need outpatient sleep study
History of Parkinson's disease status post deep brain stimulation
- Continue carbidopa levodopa, nuplazid
- Continue clonazepam, sertraline
Atrial fibrillation
- Continue Coumadin
Full code
DVT prophylaxis�Coumadin
Regular diet
[2025-04-20 18:55] VITALS: BP 148/90
[2025-04-20] MEDS: KLONOPIN 1 MG PO (20:01)
[2025-04-20] MEDS: SEROQUEL 50 MG PO (20:01)
[2025-04-20] MEDS: ELIQUIS 5 MG PO (20:01)
[2025-04-20] MEDS: SINEMET 25-100 2 TABLET PO (20:01)
[2025-04-20] MEDS: KLONOPIN PO (20:02)
[2025-04-20 20:28] VITALS: BMI 41.3
[2025-04-20] MEDS: MELATONIN 10 MG PO (21:23)
[2025-04-20 23:17] VITALS: BP 112/59
[2025-04-21 03:00] VITALS: BP 150/92
[2025-04-21 06:05] LABS: Hematocrit 45.8 % (39.0-52.0); Hemoglobin 15.4 g/dL (13.0-18.0); Mean Corp Hgb Conc. 33.6 g/dL (33.0-37.0); Mean Corpuscular Volume 91.1 fL (80.0-94.0); Nucleated Red Blood Cells % 0 % (-); Platelet Count 161 10^3/uL (130-400); Red Cell Dist. Width 13.0 % (11.5-14.5)
[2025-04-21 06:28] LABS: Blood Urea Nitrogen 12 mg/dl (9-20); Calcium 9.2 mg/dl (8.4-10.2); Carbon Dioxide 28 mmol/L (22-30); Chloride 101 mmol/L (98-107); Estimated Creatinine Clearance 99 ml/min; Glucose 105 mg/dl (70-99); Potassium 4.2 mmol/L (3.5-5.1); Sodium 134 mmol/L (135-145); eGFR > 60.00
[2025-04-21 07:33] VITALS: BP 159/87
[2025-04-21] MEDS: SINEMET 25-100 2 TABLET PO ×4 (08:17→20:02)
[2025-04-21] MEDS: ZOLOFT 100 MG PO (08:18)
[2025-04-21] MEDS: LIPITOR 10 MG PO (08:18)
[2025-04-21] MEDS: ELIQUIS 5 MG PO ×2 (08:18→20:01)
--- NOTE | 2025-04-21 09:49 | CON.NEURO4 ---
Addendum entered and electronically signed by Tian Sandhu MD 04/21/25 20:12:
The patient was seen and examined today along with the nurse practitioner Rosalba Mark, and I agree with her assessment and plan. Given below is my addendum.
The patient is a 74 years old male with a past medical history of Parkinson's disease, status post deep brain stimulator implantation in June 2024, who presented with cognitive decline including sundowning, visual hallucinations and also
worsening of gait and falls.
On neurologic examination the patient is alert, he is oriented x 3, he knows his age, speech is clear, and he has antigravity strength in bilateral upper and lower extremities. The patient has cogwheel rigidity present in bilateral upper
extremities and also has rest tremor of the hands bilaterally.
The patient's son was present at the bedside and he thought that the patient's mental status was better today than when he came to the hospital.
MRI of the brain did not show an acute intracranial abnormality.
The plan is to continue Sinemet at the preadmission dose. Consider to decrease the dose of Sinemet if possible.
Continue Nuplazid.
Reduce the dose of Seroquel down to 50 mg at bedtime
PT/OT evaluation
Original Note:
Consultation - Neurology 4
-
CONSULTING PHYSICIAN: Tian Sandhu MD
REFERRING PHYSICIAN: Hospitalists/Dr. Patricio
DICTATED BY: KENY Delgadillo
DATE/TIME OF REQUEST: 04/21/25
DATE/TIME OF CONSULTATION: 04/21/25
Reason for Consultation: Hallucinations, confusion, gait dysfunction
History of Present Illness:
This is a 74-year-old male who has presented to the hospital with report of persistent confusion, hallucinations, and gait abnormality. Patient is follow as an outpatient by Neurology Dr. Waleska Roman for advanced Parkinson's disease.
From outpatient evaluation by Neurology Dr. Roman on 01/27/25:
'
'
Per the patient's son at bedside, about two weeks ago the patient became confused and started hallucinating, and this has not resolved yet. He does not recognize his own house and he's seeing people. It's typical for him to have intermittent
hallucinations but they usually resolve quickly. He has been taking Nuplazid for at least the past year. He also notes that his balance has been poor and it seems like his right leg is dragging for the past few weeks. He fell one week ago and was
evaluated here in the ER, CT head 04/11/25 was negative for any acute abnormalities. He was evaluated in the Neurology office yesterday and referred to the ER to rule out any other contributing factors to his mental status decline. His Seroquel dose
was also decreased from 100mg to 50mg nightly. Patient denies any headache, dizziness, vision changes, speech/swallow difficulty, numbness, and weakness. He is taking carbidopa/levodopa 25/100 2 tablets four times per day.
Past Medical History: Parkinson's disease, Afib (apixaban), HTN, HLD, asthma
Surgical History: Deep brain stimulator, hernia repair, appendectomy.
Family History: Reviewed and noncontributory.
Social History: Denies tobacco, alcohol, and illicit drug use.
Allergies: Rotigotine, chlorhexidine, benzonatate.
Home Medications: See below.
Review of Symptoms:
Patient denies any fever, headache, chest pain, shortness of breath, GI or symptoms.
�Per the HPI.�All systems are reviewed negative except above.
Physical Exam:
The patient is afebrile, abdomen is nondistended, breathing is unlabored, skin is warm and dry, scab left knee.
Neurologic Examination:
The patient is awake, alert and oriented x 3 currently. He is able to follow commands and answer questions appropriately. There is no aphasia or dysarthria. On cranial nerve assessment, pupils are 3 mm bilateral, round and reactive to light and
accommodation. Visual schultz are full. Extraocular movements are intact. Facial sensations are intact and bilaterally symmetrical, there is no facial asymmetry. Hearing is intact bilaterally to normal conversation volume. Tongue palate and uvula are
midline. Sternocleidomastoid strengths are full bilaterally. Motor strengths are 5/5 bilateral upper and lower extremities on medical research [place] scale. There is no drift. There is an intermittent low amplitude semi rhythmic tremor in distal
LUE at rest. +Cogwheeling in BUE. Sensation of touch is intact and bilaterally symmetrical. Coordination is intact by finger to nose bilaterally.
Lab Results: See below.
Neuro Imaging:
1. CT head 04/11/25: Deep brain stimulator is present with resultant streak artifact. No evidence for acute intracranial abnormality.
Differentials for the patient's presentation include:
1. Change in mental status; uncertain etiology, possibilities include further progression of neurodegenerative disorder, Parkinson's disease, vs toxic metabolic encephalopathy or structural brain abnormality contributing to symptoms.
Patient has the following risk factors for their symptoms: Advanced PD
Recommendations:
-MRI brain noncontrast pending.
-Continue home apixaban.
-Infectious/metabolic workup per primary team.
-Continue Sinemet 25/100 2 tablets four times a day. Consideration for adjustment of PD medications as an outpatient.
-Vitamin B12 level is low at 343, goal is >400. Initiate cyanocobalamin 1000mcg PO daily.
-PT/OT/ST evaluations.
Discussed patient care with: Dr. Sandhu, the patient, patient's son.
Vital Signs and Labs
-
Vital Signs and Labs:
Vital Signs
Temp Pulse Resp BP Pulse Ox
98.6 F 67 18 121/66 98
04/21/25 11:29 04/21/25 11:29 04/21/25 11:29 04/21/25 11:29 04/21/25 11:29
Lab Results
04/21/25 05:31
04/21/25 05:31
Sodium 134 mmol/L (135-145) L 04/21/25 05:31
Potassium 4.2 mmol/L (3.5-5.1) 04/21/25 05:31
BUN 12 mg/dl (9-20) 04/21/25 05:31
Glucose 105 mg/dl (70-99) H 04/21/25 05:31
Calcium 9.2 mg/dl (8.4-10.2) 04/21/25 05:31
Ddd-S-Otrlfvpqent Pept 736 pg/ml 04/20/25 12:57
Medications
-
Active Medications
Generic Name Dose Route Start Last Admin
Trade Name Freq PRN Reason Stop Dose Admin
Apixaban 5 mg 04/20/25 20:00 04/21/25 08:18
Apixaban (Eliquis) 5 Mg Tablet PO 05/18/25 19:59 5 mg
BID KALIN Administration
Atorvastatin Calcium 10 mg 04/21/25 08:00 04/21/25 08:18
Atorvastatin (Lipitor) 10 Mg Tablet PO 05/19/25 07:59 10 mg
DAILY KALIN Administration
Carbidopa/Levodopa 2 tablet 04/20/25 20:00 04/21/25 12:04
Carbidopa (25 Mg)/Levodopa (100 Mg) Regular Release Tablet PO 05/18/25 19:59 2 tablet
0800,1200,1600,2000 KALIN Administration
Cholecalciferol 25 mcg 04/21/25 16:00
Cholecalciferol (Vitamin D3) 25 Mcg Tablet (1,000 Units) PO 05/19/25 15:59
DAILY@1600 KALIN
Clonazepam 1 mg 04/20/25 17:56
Clonazepam 1 Mg Tablet PO 05/18/25 17:55
HSPRN PRN
repeat dose if wakes up during
Clonazepam 0.5 mg 04/20/25 18:00 04/20/25 20:02
Clonazepam 0.5 Mg Tablet PO 05/18/25 17:59 Not Given
QPM KALIN
Clonazepam 1 mg 04/20/25 20:00 04/20/25 20:01
Clonazepam 1 Mg Tablet PO 05/18/25 19:59 1 mg
DAILY@2000 KALIN Administration
Melatonin 10 mg 04/20/25 22:00 04/20/25 21:23
Melatonin 5 Mg Tablet PO 05/18/25 21:59 10 mg
HS KALIN Administration
Pimavanserin [ 0 mg 04/21/25 16:00
Nuplazid] 34 Mg PO 05/19/25 15:59
Capsule Po Daily@ DAILY@1600 KALIN
1600
Quetiapine Fumarate 50 mg 04/20/25 20:00 04/20/25 20:01
Quetiapine 25 Mg Tablet PO 05/18/25 19:59 50 mg
DAILY@1999 KALIN Administration
Sertraline HCl 100 mg 04/21/25 08:00 04/21/25 08:18
Sertraline 100 Mg Tablet PO 05/19/25 07:59 100 mg
DAILY KALIN Administration
Sodium Chloride 0 flush 04/20/25 18:00
Sodium Chloride 0.9% (Flush) Syringe IV 05/18/25 17:59
PER PROTOCOL KALIN
Home Medications
�Medication �Instructions �Recorded
apixaban 5 mg tablet (Eliquis) 5 mg PO BID Blood Clot 04/20/25
Prevention/Tx
atorvastatin 10 mg tablet 10 mg PO DAILY High Cholesterol 04/20/25
carbidopa 25 mg-levodopa 100 mg 2 tab PO 0800,1200,1600,199904/20/25
tablet parkinsons
cholecalciferol (vitamin D3) 25 25 mcg PO DAILY@1600 Supplement 04/20/25
mcg (1,000 unit) chewable tablet
(Vitamin D3)
clonazepam 0.5 mg tablet 0.5 mg PO QPM Mental Health/Anxiety 04/20/25
clonazepam 1 mg tablet 1 mg PO DAILY@1999 Mental 04/20/25
Health/Anxiety
clonazepam 1 mg tablet 1 mg PO HSPRN PRN repeat dose if 04/20/25
wakes up during sleep
melatonin 5 mg tablet 10 mg PO HS Sleep 04/20/25
pimavanserin 34 mg capsule 34 mg PO DAILY@1600 Mental 04/20/25
(Nuplazid) Health/Anxiety
quetiapine 25 mg tablet 100 mg PO DAILY@1999 Mental 04/20/25
Health/Anxiety
sertraline 100 mg tablet 100 mg PO DAILY Mental 04/20/25
Health/Anxiety
[2025-04-21 09:54] LABS: Hepatitis C Antibody Negative (Negative)
[2025-04-21 10:34] LABS: Glycohemoglobin (HgbA1c) 5.7 % (4.0-5.9)
[2025-04-21 11:29] VITALS: BP 121/66
--- NOTE | 2025-04-21 12:10 | CM ---
Addendum entered by Conner Zhang 04/21/25 12:50:
CM checked with [facility] and was told he is not a member of their ACO.
Original Note:
CM following re: discharge planning.
Reviewed pt's chart, met with pt. Pt's daughter and son a bedside.
Pt is a 74 year old male, admitted with OBS status and primary dx of Acute metabolic encephalopathy possibly polypharmacy versus suspected worsening dementia likely Lewy body dementia. OBS status explained to the pt and his family, they are aware of
limitations of navigating next level of care, [facility] letter signed, placed on chart, pt has a copy.
Per daughter, pt lives with spouse and a son in a 2SH, 2 steps to enter, has 4 supportive children. Per daughter, pt usually uses a cane, has a walker and per daughter pt will need to go to a SNF for a short term rehab or to [facility].
Differences between SNF and acute rehab explained to pt's family. OBS status will limit pt's ability to go to a SNF and pt's family expressed their disappointed feelings. CM will check to whether or not pt is a member of [facility]CO. Per daughter,
pt does not have financial resources to pay privately for SNF level of care.
PT and OT will evaluate the pt to determine a level of care at discharge.
Pharmacy: [facility].
D/c plan: uncertain at this time.
CM will follow with discharge plan updates as hospitalization progresses
[2025-04-21 12:42] LABS: Ferritin 185.0 ng/ml (17.9-464.0)
[2025-04-21 13:13] LABS: Folate 4.7 ng/ml (2.76-20); Vitamin B12 343 pg/ml (239-931)
--- NOTE | 2025-04-21 14:01 | W.PN.HOSP.TC ---
Today's Communication/Plan
-
PT/OT and physiatry evaluation
Monitor cognitive status with reduced dose of Seroquel
Assessment / Plan
Assessment / Plan
Impression:
74 years old male with Parkinson disease presents with cognitive and motor decline.
Other conditions
Paroxysmal atrial fibrillation.
Anticoagulation with apixaban
Essential hypertension
Dyslipidemia
Mild intermittent asthma
Plan
74 years old patient with Parkinson's disease status post deep brain stimulator implantation June 2024 presents with cognitive decline including sundowning, visual hallucinations as well as motor decline with worsening of gait, falls, concern for
right lower extremity weakness.
Initial workup with no evidence of infection or metabolic abnormalities
Nontoxic-appearing
Neurologic exam with patient alert awake and negative x 3. Resting tremor mostly pronounced in the left upper extremity with no other focal abnormality. Ataxic shuffling gait.
Imaging with MRI of the brain showed no focal intracranial abnormalities
Neurology evaluation appreciated
Continue carbidopa levodopa at preadmission dose.
Continue Nuplazid.
Reduce Seroquel down to 50 mg at bedtime
Continue sertraline and clonazepam
PT/OT evaluation
Physiatry evaluation with consideration of acute rehab
Paroxysmal atrial fibrillation.
Not on rate control medications [employer].
Continue thromboembolic prophylaxis with apixaban.
Dyslipidemia on atorvastatin
Anticipated Discharge: 24 - 48 hours
Subjective/Interval History
-
Date of Service: April 21, 2025
Objective Data
-
Labs:
Laboratory Results
04/21/25
05:31
WBC 9.9
Hgb 15.4
Hct 45.8
Plt Count 161
Sodium 134 L
Potassium 4.2
Chloride 101
Carbon Dioxide 28
BUN 12
Creatinine 0.8
Glucose 105 H
Calcium 9.2
Vital Signs:
Vital Signs
Temp Pulse Resp BP Pulse Ox
98.6 F 67 18 121/66 98
04/21/25 11:29 04/21/25 11:29 04/21/25 11:29 04/21/25 11:29 04/21/25 11:29
I&O
04/20/25 04/21/25 04/22/25
06:59 06:59 06:59
Intake Total 240 / 240
Balance 240 / 240
Physical Exam
-
General: Well Developed and No Apparent Distress
HEENT: Normocephalic, Atraumatic and Moist Mucous Membranes
Respiratory: Clear to Auscultation
Cardiac: Regular Rhythm and S1/S2; Negative Murmur, Rub or Gallop
GI: Soft, Nontender, Nondistended and Normal Bowel Sounds; Negative Organomegaly
Rectal: Deferred by Provider
Musculoskeletal: No Clubbing, No Cyanosis and No Edema
Skin: Negative Rash
Neuro: Awake, Alert, Oriented, AO x 3, Tremors (Resting rolling tremor mostly pronounced on the left upper extremity) and Nonfocal/Grossly Intact
[2025-04-21 15:52] VITALS: BP 140/68
[2025-04-21] MEDS: KLONOPIN 0.5 MG PO (17:03)
[2025-04-21] MEDS: VITAMIN B-12 1000 MCG PO (17:03)
[2025-04-21] MEDS: VITAMIN D3 (cholecalciferol) 25 MCG PO (17:03)
[2025-04-21 19:09] VITALS: BP 129/67
[2025-04-21] MEDS: KLONOPIN 1 MG PO (20:01)
[2025-04-21] MEDS: SEROQUEL 50 MG PO (20:01)
[2025-04-21] MEDS: MELATONIN 10 MG PO (21:31)
[2025-04-21 23:13] VITALS: BP 114/62
[2025-04-22] VITALS (8 sets, daily range): BP systolic 101–151; BP diastolic 53–80; PULSE 64–76; O2SAT 95; BMI 40.8
[2025-04-22] MEDS: VITAMIN B-12 1000 MCG PO (09:15)
[2025-04-22] MEDS: LIPITOR 10 MG PO (09:15)
[2025-04-22] MEDS: ELIQUIS 5 MG PO ×2 (09:15→19:47)
[2025-04-22] MEDS: ZOLOFT 100 MG PO (09:15)
[2025-04-22] MEDS: SINEMET 25-100 2 TABLET PO ×4 (09:21→19:55)
--- NOTE | 2025-04-22 10:41 | W.PN.HOSP.TC ---
Today's Communication/Plan
-
PT/OT
Assessment / Plan
Assessment / Plan
Gen-awake, alert, NAD
HEENT-NC, AT, anicteric, clear oral mm
Neck-supple
CV-reg, no M, +S1/S2
Lungs-clear B/L
Abd-soft, NT, ND
Ext-no edema
Musculoskeletal-no cyanosis, clubbing
Skin-warm and dry
Neuro-grossly non-focal
Psych-calm, cooperative
Impression:
74 years old male with Parkinson disease presents with cognitive and motor decline.
Other conditions
Paroxysmal atrial fibrillation.
Anticoagulation with apixaban
Essential hypertension
Dyslipidemia
Mild intermittent asthma
Plan
74 years old patient with Parkinson's disease status post deep brain stimulator implantation June 2024 presents with cognitive decline including sundowning, visual hallucinations as well as motor decline with worsening of gait, falls, concern for
right lower extremity weakness.
Initial workup with no evidence of infection or metabolic abnormalities
Nontoxic-appearing
Neurologic exam with patient alert awake and negative x 3. Resting tremor mostly pronounced in the left upper extremity with no other focal abnormality. Ataxic shuffling gait.
Imaging with MRI of the brain showed no focal intracranial abnormalities
Neurology evaluation appreciated
Continue carbidopa levodopa at preadmission dose.
Continue Nuplazid.
Reduced Seroquel down to 50 mg at bedtime
Continue sertraline and clonazepam
PT/OT evaluation
Physiatry evaluation with consideration of acute rehab
Suspect etiology for cognitive decline and motor dysfunction is progression of his underlying Parkinson's disease.
Paroxysmal atrial fibrillation.
Not on rate control medications [employer] ASSOCIATE.
Continue thromboembolic prophylaxis with apixaban.
Dyslipidemia on atorvastatin
Low end of normal range B12 level noted. Started on oral repletion.
Full code
updated at the bedside.
Anticipated Discharge: Within 24 hours
Subjective/Interval History
-
Date of Service: April 22, 2025
Patient seen and examined. No complaints.
Objective Data
-
Vital Signs:
Vital Signs
Temp Pulse Resp BP Pulse Ox
98.4 F 69 18 151/80 96
04/22/25 09:35 04/22/25 09:35 04/22/25 09:35 04/22/25 09:35 04/22/25 09:35
I&O
04/21/25 04/22/25 04/23/25
06:59 06:59 06:59
Intake Total 240 / 240 720 / 720
Balance 240 / 240 720 / 720
Review of Systems
-
History Source: Patient
All other systems: Reviewed and negative
--- NOTE | 2025-04-22 14:39 | W.PN.NEURO.1 ---
Today's Communication / Plan
-
Patient is more alert today as compared to yesterday.
MRI of the brain did not show an acute intracranial abnormality.
The plan is to continue Sinemet at the preadmission dose for now. Consider to decrease the dose of Sinemet if possible.
The plan is to further decrease the dose of Seroquel.
Continue Nuplazid.
PT/OT evaluation
Will sign off please call for any question.
Subjective/Objective
Subjective Data
Date of Service: April 22, 2025
The patient is more alert today and is able to communicate better as compared to yesterday.
The plan is to further decrease the dose of Seroquel.
Neurologic Examination:
The patient is alert and oriented to self person and place he knows. He knows the month and he also knows the name of the president. Speech is clear. He has antigravity strength in all extremities.
Objective Data
Vital Signs
Temp Pulse Resp BP Pulse Ox
36.8 C 75 18 126/67 95
04/22/25 11:43 04/22/25 11:43 04/22/25 11:43 04/22/25 11:43 04/22/25 11:43
Lab Results
04/21/25 05:31
04/21/25 05:31
Sodium 134 mmol/L (135-145) L 04/21/25 05:31
Potassium 4.2 mmol/L (3.5-5.1) 04/21/25 05:31
BUN 12 mg/dl (9-20) 04/21/25 05:31
Glucose 105 mg/dl (70-99) H 04/21/25 05:31
Calcium 9.2 mg/dl (8.4-10.2) 04/21/25 05:31
Mrq-D-Jppgvrhrpsq Pept 736 pg/ml 04/20/25 12:57
Vitamin B12 343 pg/ml (239-931) 04/21/25 05:31
Patient Allergies
benzonatate (From [facility]) Allergy (Verified 04/20/25 11:24)
Unknown
chlorhexidine Allergy (Verified 04/20/25 11:24)
Rash
rotigotine Allergy (Verified 04/20/25 11:24)
Unknown
Vital Signs and Labs
-
Vital Signs and Labs:
Vital Signs
Temp Pulse Resp BP Pulse Ox
36.8 C 76 18 142/79 95
04/22/25 15:43 04/22/25 15:43 04/22/25 15:43 04/22/25 15:43 04/22/25 16:03
Lab Results
04/21/25 05:31
04/21/25 05:31
Sodium 134 mmol/L (135-145) L 04/21/25 05:31
Potassium 4.2 mmol/L (3.5-5.1) 04/21/25 05:31
BUN 12 mg/dl (9-20) 04/21/25 05:31
Glucose 105 mg/dl (70-99) H 04/21/25 05:31
Calcium 9.2 mg/dl (8.4-10.2) 04/21/25 05:31
Itg-T-Yplfyfqpwef Pept 736 pg/ml 04/20/25 12:57
Vitamin B12 343 pg/ml (623-064) 04/21/25 05:31
Medications
-
Active Medications
Generic Name Dose Route Start Last Admin
Trade Name Freq PRN Reason Stop Dose Admin
Apixaban 5 mg 04/20/25 20:00 04/22/25 09:15
Apixaban (Eliquis) 5 Mg Tablet PO 05/18/25 19:59 5 mg
BID KALIN Administration
Atorvastatin Calcium 10 mg 04/21/25 08:00 04/22/25 09:15
Atorvastatin (Lipitor) 10 Mg Tablet PO 05/19/25 07:59 10 mg
DAILY KALIN Administration
Carbidopa/Levodopa 2 tablet 04/20/25 20:00 04/22/25 16:50
Carbidopa (25 Mg)/Levodopa (100 Mg) Regular Release Tablet PO 05/18/25 19:59 2 tablet
0800,1200,1600,1999 KALIN Administration
Cholecalciferol 25 mcg 04/21/25 16:00 04/22/25 16:48
Cholecalciferol (Vitamin D3) 25 Mcg Tablet (1,000 Units) PO 05/19/25 15:59 25 mcg
DAILY@1599 KALIN Administration
Clonazepam 1 mg 04/20/25 17:56
Clonazepam 1 Mg Tablet PO 05/18/25 17:55
HSPRN PRN
repeat dose if wakes up during
Clonazepam 0.5 mg 04/20/25 18:00 04/22/25 16:47
Clonazepam 0.5 Mg Tablet PO 05/18/25 17:59 0.5 mg
QPM KALIN Administration
Clonazepam 1 mg 04/20/25 20:00 04/21/25 20:01
Clonazepam 1 Mg Tablet PO 05/18/25 19:59 1 mg
DAILY@1999 KALIN Administration
Cyanocobalamin 1,000 mcg 04/21/25 13:45 04/22/25 09:15
Cyanocobalamin (Vitamin B-12) 500 Mcg Tablet PO 05/19/25 13:44 1,000 mcg
DAILY KALIN Administration
Melatonin 10 mg 04/20/25 22:00 04/21/25 21:31
Melatonin 5 Mg Tablet PO 05/18/25 21:59 10 mg
HS KALIN Administration
Miconazole Nitrate 0 applic 04/22/25 20:00
Miconazole Powder Bottle TOPICAL 05/20/25 19:59
BID KALIN
Pimavanserin [ 0 mg 04/21/25 16:00
Nuplazid] 34 Mg PO 05/19/25 15:59
Capsule Po Daily@ DAILY@1599 KALIN
1600
Quetiapine Fumarate 50 mg 04/20/25 20:00 04/21/25 20:01
Quetiapine 25 Mg Tablet PO 05/18/25 19:59 50 mg
DAILY@1999 KALIN Administration
Sertraline HCl 100 mg 04/21/25 08:00 04/22/25 09:15
Sertraline 100 Mg Tablet PO 05/19/25 07:59 100 mg
DAILY KALIN Administration
Sodium Chloride 0 flush 04/20/25 18:00
Sodium Chloride 0.9% (Flush) Syringe IV 05/18/25 17:59
PER PROTOCOL KALIN
Home Medications
�Medication �Instructions �Recorded
apixaban 5 mg tablet (Eliquis) 5 mg PO BID Blood Clot 04/20/25
Prevention/Tx
atorvastatin 10 mg tablet 10 mg PO DAILY High Cholesterol 04/20/25
carbidopa 25 mg-levodopa 100 mg 2 tab PO 0800,1200,1600,199904/20/25
tablet parkinsons
cholecalciferol (vitamin D3) 25 25 mcg PO DAILY@1600 Supplement 04/20/25
mcg (1,000 unit) chewable tablet
(Vitamin D3)
clonazepam 0.5 mg tablet 0.5 mg PO QPM Mental Health/Anxiety 04/20/25
clonazepam 1 mg tablet 1 mg PO DAILY@1999 Mental 04/20/25
Health/Anxiety
clonazepam 1 mg tablet 1 mg PO HSPRN PRN repeat dose if 04/20/25
wakes up during sleep
melatonin 5 mg tablet 10 mg PO HS Sleep 04/20/25
pimavanserin 34 mg capsule 34 mg PO DAILY@1599 Mental 04/20/25
(Nuplazid) Health/Anxiety
quetiapine 25 mg tablet 100 mg PO DAILY@1999 Mental 04/20/25
Health/Anxiety
sertraline 100 mg tablet 100 mg PO DAILY Mental 04/20/25
Health/Anxiety
[2025-04-22] MEDS: KLONOPIN 0.5 MG PO (16:47)
[2025-04-22] MEDS: VITAMIN D3 (cholecalciferol) 25 MCG PO (16:48)
[2025-04-22] MEDS: SEROQUEL 50 MG PO (19:47)
[2025-04-22] MEDS: KLONOPIN 1 MG PO (19:47)
[2025-04-22] MEDS: DESENEX/MITRAZOL/ZEASORB 1 APPLIC TOPICAL (19:48)
[2025-04-22] MEDS: MELATONIN 10 MG PO (21:18)
[2025-04-23 03:34] VITALS: BP 123/85
[2025-04-23] MEDS: TYLENOL 650 MG PO (04:07)
[2025-04-23 06:00] VITALS: BMI 40.3
[2025-04-23 07:22] VITALS: BP 118/58
[2025-04-23 07:46] LABS: Blood Urea Nitrogen 20 mg/dl (9-20); Calcium 8.7 mg/dl (8.4-10.2); Carbon Dioxide 29 mmol/L (22-30); Chloride 102 mmol/L (98-107); Estimated Creatinine Clearance 97 ml/min; Glucose 109 mg/dl (70-99); Potassium 3.8 mmol/L (3.5-5.1); Sodium 135 mmol/L (135-145); eGFR > 60.00
--- NOTE | 2025-04-23 10:11 | W.PN.HOSP.TC ---
Today's Communication/Plan
-
Continue current care
Assessment / Plan
Assessment / Plan
Gen-awake, alert, NAD
HEENT-NC, AT, anicteric, clear oral mm
Neck-supple
CV-reg, no M, +S1/S2
Lungs-clear B/L
Abd-soft, NT, ND
Ext-no edema
Musculoskeletal-no cyanosis, clubbing
Skin-warm and dry
Neuro-grossly non-focal
Psych-calm, cooperative
Impression:
74 years old male with Parkinson disease presents with cognitive and motor decline.
Other conditions
Paroxysmal atrial fibrillation.
Anticoagulation with apixaban
Essential hypertension
Dyslipidemia
Mild intermittent asthma
Plan
74 years old patient with Parkinson's disease status post deep brain stimulator implantation June 2024 presents with cognitive decline including sundowning, visual hallucinations as well as motor decline with worsening of gait, falls, concern for
right lower extremity weakness.
Initial workup with no evidence of infection or metabolic abnormalities
Nontoxic-appearing
Neurologic exam with patient alert awake and negative x 3. Resting tremor mostly pronounced in the left upper extremity with no other focal abnormality. Ataxic shuffling gait.
Imaging with MRI of the brain showed no focal intracranial abnormalities
Neurology has signed off.
Continue carbidopa levodopa at preadmission dose.
Continue Nuplazid -so far he has not received any doses in the hospital as it is non-formulary. I did ask his to bring it in today.
Reduced Seroquel down to 50 mg at bedtime
Continue sertraline and clonazepam
PT/OT evaluation
Physiatry evaluation with consideration of acute rehab
Suspect etiology for cognitive decline and motor dysfunction is progression of his underlying Parkinson's disease.
Paroxysmal atrial fibrillation.
Not on rate control medications [employer]GER.
Continue thromboembolic prophylaxis with apixaban.
Dyslipidemia on atorvastatin
Low end of normal range B12 level noted. Started on oral repletion.
Full code
Dispo -medically stable for discharge to acute rehab. Case management aware.
Updated on the phone.
Anticipated Discharge: Within 24 hours
Subjective/Interval History
-
Date of Service: April 23, 2025
Patient seen and examined. No complaints.
Objective Data
-
Labs:
Laboratory Results
04/23/25
06:34
Sodium 135
Potassium 3.8
Chloride 102
Carbon Dioxide 29
BUN 20
Creatinine 0.8
Glucose 109 H
Calcium 8.7
Vital Signs:
Vital Signs
Temp Pulse Resp BP Pulse Ox
99.7 F 58 20 118/58 96
04/23/25 07:22 04/23/25 07:22 04/23/25 07:22 04/23/25 07:22 04/23/25 07:22
I&O
04/22/25 04/23/25 04/24/25
06:59 06:59 06:59
Intake Total 720 / 720 1080 / 1080
Output Total 850 / 850
Balance 720 / 720 230 / 230
Review of Systems
-
History Source: Patient
All other systems: Reviewed and negative
[2025-04-23] MEDS: LIPITOR 10 MG PO (10:35)
[2025-04-23] MEDS: VITAMIN B-12 1000 MCG PO (10:35)
[2025-04-23] MEDS: ZOLOFT 100 MG PO (10:35)
[2025-04-23] MEDS: ELIQUIS 5 MG PO ×2 (10:35→20:28)
[2025-04-23] MEDS: DESENEX/MITRAZOL/ZEASORB 1 APPLIC TOPICAL ×2 (10:39→20:29)
[2025-04-23] MEDS: SINEMET 25-100 2 TABLET PO ×4 (10:39→20:32)
[2025-04-23 15:25] VITALS: BP 124/75
[2025-04-23] MEDS: NON-FORMULARY ITEM 34 MG PO (16:35)
[2025-04-23] MEDS: VITAMIN D3 (cholecalciferol) 25 MCG PO (16:35)
[2025-04-23] MEDS: KLONOPIN 0.5 MG PO (18:21)
[2025-04-23] MEDS: SEROQUEL 50 MG PO (20:28)
[2025-04-23] MEDS: KLONOPIN 1 MG PO (20:29)
--- NOTE | 2025-04-23 20:30 | PTCARENOTE ---
Resumed care of pt attempting to climb OOB. Pt extremely agitated, aggressive towards staff, confused, hallucinating and paranoid. Pt threatening staff. Pt attempting to hit staff with tv remote, grabs hands/arms and squeezing tight when attempting
to keep pt safe in bed. Pt cursing and using aggressive tone/ words with staff. Unable to re direct pt in order to keep pt safe. Curt BUSTILLO at bedside to assist with pt as pt not willing to take ordered PO medications at this time. called and
she stated would come be here in 30minutes. Upon arrival, pt continues to be verbally inappropriate with staff, but able to manage pt without difficulty. able to get pt to take PO medications as ordered. NO IV medication given.
at bedside to continue to assist with pt needs. Will continue to monitor.
[2025-04-23] MEDS: MELATONIN 10 MG PO (20:32)
[2025-04-23 23:30] VITALS: BP 113/64
--- NOTE | 2025-04-23 23:52 | PTCARENOTE ---
Pt now sleeping. No further issues with pt while present at bedside. pt left for the night, will be working tomorrow, but stated if needed she is available by phone. Bed alarm in place. Pt remains sleeping. Will continue to monitor.
--- NOTE | 2025-04-24 03:50 | PTCARENOTE ---
Pt awake yelling out, calling for 'Herlinda Vizcaino, and Eulogio'. Reality orientation attempted. pt undressing self, pulled off pure wick. pt given bed bath, petty care provided. new Male external catheter now in place. Pt calm, but continues to yell
out. Close monitoring maintained.
[2025-04-24 04:47] VITALS: BMI 40.0
[2025-04-24 07:55] VITALS: BP 164/88
[2025-04-24] MEDS: DESENEX/MITRAZOL/ZEASORB 1 APPLIC TOPICAL ×2 (09:49→19:47)
[2025-04-24] MEDS: VITAMIN B-12 1000 MCG PO (09:49)
[2025-04-24] MEDS: LIPITOR 10 MG PO (09:49)
[2025-04-24] MEDS: ZOLOFT 100 MG PO (09:49)
[2025-04-24] MEDS: ELIQUIS 5 MG PO ×2 (09:49→19:47)
[2025-04-24] MEDS: SINEMET 25-100 2 TABLET PO ×4 (09:57→19:46)
[2025-04-24] MEDS: TYLENOL 650 MG PO ×2 (12:34→17:15)
[2025-04-24 13:32] VITALS: BMI 40.0
--- NOTE | 2025-04-24 14:16 | W.PN.HOSP.TC ---
Today's Communication/Plan
-
PT evaluation with ongoing discharge planning. Most likely detention facility
Assessment / Plan
Assessment / Plan
Impression:
74 years old male with Parkinson disease presents with cognitive and motor decline.
Other conditions
Paroxysmal atrial fibrillation.
Anticoagulation with apixaban
Essential hypertension
Dyslipidemia
Mild intermittent asthma
Plan
74 years old patient with Parkinson's disease status post deep brain stimulator implantation June 2024 presents with cognitive decline including sundowning, visual hallucinations as well as motor decline with worsening of gait, falls, concern for
right lower extremity weakness.
Initial workup with no evidence of infection or metabolic abnormalities
Nontoxic-appearing
Neurologic exam with patient alert awake and negative x 3. Resting tremor mostly pronounced in the left upper extremity with no other focal abnormality. Ataxic shuffling gait.
Imaging with MRI of the brain showed no focal intracranial abnormalities
Neurology has signed off.
Continue carbidopa levodopa at preadmission dose.
Continue Nuplazid -so far he has not received any doses in the hospital as it is non-formulary. I did ask his to bring it in today.
Reduced Seroquel down to 50 mg at bedtime
Continue sertraline and clonazepam
PT/OT evaluation
Physiatry evaluation with consideration of acute rehab
Suspect etiology for cognitive decline and motor dysfunction is progression of his underlying Parkinson's disease.
Paroxysmal atrial fibrillation.
Not on rate control medications [employer].
Continue thromboembolic prophylaxis with apixaban.
Dyslipidemia on atorvastatin
Low end of normal range B12 level noted. Started on oral repletion.
Full code
Dispo -medically stable for discharge to acute rehab. Case management aware.
Updated on the phone.
Anticipated Discharge: Within 24 hours
Subjective/Interval History
-
Date of Service: April 24, 2025
Objective Data
-
Vital Signs:
Vital Signs
Temp Pulse Resp BP Pulse Ox
99.3 F 85 18 164/88 95
04/24/25 07:55 04/24/25 07:55 04/24/25 07:55 04/24/25 07:55 04/24/25 07:55
I&O
04/23/25 04/24/25 04/25/25
06:59 06:59 06:59
Intake Total 1080 / 1080 480 / 480
Output Total 850 / 850 600 / 600
Balance 230 / 230 -120 / -120
Physical Exam
-
General: Well Developed and No Apparent Distress
HEENT: Normocephalic, Atraumatic and Moist Mucous Membranes
Respiratory: Clear to Auscultation
Cardiac: Regular Rhythm and S1/S2; Negative Murmur, Rub or Gallop
GI: Soft, Nontender, Nondistended and Normal Bowel Sounds; Negative Organomegaly
Rectal: Deferred by Provider
Musculoskeletal: No Clubbing, No Cyanosis and No Edema
Skin: Negative Rash
Neuro: Nonfocal/Grossly Intact
--- NOTE | 2025-04-24 14:25 | CM ---
CM following re: discharge planning.
Reviewed pt's chart, met with pt and spoke to pt's spouse a few times to update on discharge plan progress.
Pt is upgraded to IP admission. IMM reviewed, placed on chart, pt has a copy.
PT and OT evaluations noted - acute rehab level of care recommended. Pt's spouse requested [facility]. A referral to [facility] made.
CM discussed with pt's spouse alternative to acute rehab - SNF level of care. Pt's spouse stated definitely no to [facility]. Pt's spouse is aware to go over a list of SNF that provided to the pt in a green folder. pt's spouse stated she will go over
it when she visits the pt today late evening.
D/C plan: [facility] vs preferred SNF.
CM will follow with discharge plan updates as hospitalization progresses
--- NOTE | 2025-04-24 15:01 | PTCARENOTE ---
Patient OOB with max assist x2. Patient removed clothes multiple times. Patient pulled out IV, pushed lunch tray on floor and was banging the table with TV remote. Patient's called multiple times to speak to patient and ease his anxiety.
Patient is calm and cooperative at times. Patient can be angry, aggressive and try to hit staff at times. Patient sitting in yard hostler with chair alarm on at present.
[2025-04-24 15:20] VITALS: BP 115/99
--- NOTE | 2025-04-24 15:30 | PTCARENOTE ---
Patient getting increasingly more agitated and aggressive. Physician notified. Order obtained for Ativan 1mg IM now.
[2025-04-24] MEDS: ATIVAN 1 MG IM (15:45)
--- NOTE | 2025-04-24 17:00 | PTCARENOTE ---
Patient c/o back pain. Unable to rate at present. Tylenol given with relief. Son at bedside.
[2025-04-24] MEDS: VITAMIN D3 (cholecalciferol) 25 MCG PO (17:12)
[2025-04-24] MEDS: KLONOPIN 0.5 MG PO (17:12)
[2025-04-24] MEDS: NON-FORMULARY ITEM 34 MG PO (17:13)
[2025-04-24] MEDS: SEROQUEL 50 MG PO (19:46)
[2025-04-24] MEDS: KLONOPIN 1 MG PO (19:47)
[2025-04-24 20:30] VITALS: BP 168/80
[2025-04-24] MEDS: MELATONIN 10 MG PO (21:03)
[2025-04-24 23:20] VITALS: BP 141/84
[2025-04-25 05:00] VITALS: BMI 39.8
[2025-04-25 07:25] VITALS: BP 157/96
[2025-04-25] MEDS: ELIQUIS 5 MG PO ×2 (08:53→20:01)
[2025-04-25] MEDS: LIPITOR 10 MG PO (08:53)
[2025-04-25] MEDS: ZOLOFT 100 MG PO (08:53)
[2025-04-25] MEDS: VITAMIN B-12 1000 MCG PO (08:53)
[2025-04-25] MEDS: SINEMET 25-100 2 TABLET PO ×4 (08:57→21:00)
[2025-04-25] MEDS: DESENEX/MITRAZOL/ZEASORB 1 APPLIC TOPICAL ×2 (08:58→20:08)
[2025-04-25 13:00] VITALS: BMI 39.8
--- NOTE | 2025-04-25 13:29 | W.PN.HOSP.TC ---
Today's Communication/Plan
-
Continue supportive care.
Sundowning/agitation improved with single dose of lorazepam. Monitor for recurrent
Ongoing disposition efforts to [facility] facility/rehab
Assessment / Plan
Assessment / Plan
Impression:
74 years old male with Parkinson disease presents with cognitive and motor decline.
Other conditions
Paroxysmal atrial fibrillation.
Anticoagulation with apixaban
Essential hypertension
Dyslipidemia
Mild intermittent asthma
Plan
74 years old patient with Parkinson's disease status post deep brain stimulator implantation June 2024 presents with cognitive decline including sundowning, visual hallucinations as well as motor decline with worsening of gait, falls, concern for
right lower extremity weakness.
Initial workup with no evidence of infection or metabolic abnormalities
Nontoxic-appearing
Neurologic exam with patient alert awake and negative x 3. Resting tremor mostly pronounced in the left upper extremity with no other focal abnormality. Ataxic shuffling gait.
Imaging with MRI of the brain showed no focal intracranial abnormalities
Neurology has signed off.
Continue carbidopa levodopa at preadmission dose.
Continue Nuplazid -so far he has not received any doses in the hospital as it is non-formulary. I did ask his to bring it in today.
Reduced Seroquel down to 50 mg at bedtime
Continue sertraline and clonazepam
PT/OT evaluation
Physiatry evaluation with consideration of acute rehab
Suspect etiology for cognitive decline and motor dysfunction is progression of his underlying Parkinson's disease.
Paroxysmal atrial fibrillation.
Not on rate control medications [employer].
Continue thromboembolic prophylaxis with apixaban.
Dyslipidemia on atorvastatin
Low end of normal range B12 level noted. Started on oral repletion.
Full code
Dispo -medically stable for discharge to acute rehab. Case management aware.
Anticipated Discharge: 24 - 48 hours
Subjective/Interval History
-
Date of Service: April 25, 2025
Objective Data
-
Vital Signs:
Vital Signs
Temp Pulse Resp BP Pulse Ox
97.7 F 72 20 157/96 99
04/25/25 07:25 04/25/25 07:25 04/25/25 07:25 04/25/25 07:25 04/25/25 11:04
I&O
04/24/25 04/25/25 04/26/25
06:59 06:59 06:59
Intake Total 480 / 480 1140 / 1140
Output Total 600 / 600
Balance -120 / -120 1140 / 1140
Physical Exam
-
General: Well Developed and No Apparent Distress
HEENT: Normocephalic, Atraumatic and Moist Mucous Membranes
Respiratory: Clear to Auscultation
Cardiac: Regular Rhythm and S1/S2; Negative Murmur, Rub or Gallop
GI: Soft, Nontender, Nondistended and Normal Bowel Sounds; Negative Organomegaly
Rectal: Deferred by Provider
Musculoskeletal: No Clubbing, No Cyanosis and No Edema
Skin: Negative Rash
Neuro: Awake, Alert, Oriented and Nonfocal/Grossly Intact
--- NOTE | 2025-04-25 14:35 | CM ---
CM following re: discharge planning.
Reviewed pt's chart, met with pt and spoke to pt's spouse a few times to update on discharge plan progress.
PT and OT recommending now SNF level of care.
Pt's spouse is informed that [facility] denied a referral.
Pt's spouse stated she went over a list of SNFs and following SNFs preferred: [facility], [facility], [facility], [facility] and [facility]. A referral to above SNFs made.
D/C plan: preferred SNF.
CM will follow to assist pt with discharge to a preferred SNF.
[2025-04-25 14:37] VITALS: BP 132/87; PULSE 73; O2SAT 95
[2025-04-25 14:44] VITALS: BP 132/83; PULSE 75; O2SAT 95
[2025-04-25] MEDS: ATIVAN 1 MG IM (15:01)
[2025-04-25 15:15] VITALS: BP 125/86
[2025-04-25] MEDS: VITAMIN D3 (cholecalciferol) 25 MCG PO (17:02)
[2025-04-25] MEDS: KLONOPIN 0.5 MG PO (17:03)
[2025-04-25] MEDS: NON-FORMULARY ITEM 34 MG PO (17:03)
--- NOTE | 2025-04-25 18:00 | CON.MD ---
Documented by User: Brittany Syed PA-C 04/25/25 18:32
Consultation - Medical
-
Referring Provider:�Nestor Arguello
Chief Complaint:�Parkinson's,
�
History of Present Illness: 74 years old patient with PMH of (Parkinson's disease s/p deep brain stimulator implantation June 2024, Paroxysmal atrial fibrillation on Eliquis, Hypertension, Dyslipidemia, Mild intermittent asthma) presented to the
ED with cognitive decline including sundowning, visual hallucinations, worsening gait, falls, concern for right lower extremity weakness.
Initial workup with no evidence of infection or metabolic abnormalities. MRI without intracranial abnormality. Neurology recommended decreasing Seroquel to 50mg at night. Maintaining Sinemet preadmission dose and considering decreasing the dose if
possible.
Per patient's , he was getting therapy at home and was doing well up until his admission.
�
Past Medical History:�Parkinson disease s/p deep brain stimulator implant-06/2024, Paroxysmal atrial fibrillation on Eliquis,.
hypertension ,Dyslipidemia, Mild intermittent asthma
Procedure History:�Deep Brain stimulator implant-06/2024
Family History:�non contributory
�
Social History:�
Functional Level Premorbidly:�Independent with some activities, assisted with �
Functional Level Currently:�Eating-max assist, Grooming-Mod assist, Toileting-dependent, UE self care-Max assist, LE self care-Dependent. bed mobility-dependent
�
Tobacco:�Denies�
Alcohol:�Denies�
Drug use:�Denies�
�
Lives with:�Spouse
24-hour assistance available:�
Number of floors:�split level 2
# steps to enter:�2
# steps to second floor:
Potential First floor set up:�yes
Driving:�no
Occupation:�retired
�
�
Allergies:�
Allergy/AdvReac Type Severity Reaction Status Date / Time
benzonatate (From Tessalon Allergy Unknown Verified 04/20/25 11:24
[place])
chlorhexidine Allergy Rash Verified 04/20/25 11:24
rotigotine Allergy Unknown Verified 04/20/25 11:24
�
Review of Systems:�
Constitutional: (x) Normal _
Eye: (x) Normal _
Ear/Nose/Throat: (x) Normal _
Respiratory: (x) Normal _
Cardiovascular: (x) Normal _
Gastrointestinal: (x) Normal _
Genitourinary: (x) Normal _
Musculoskeletal: (x) Normal _
Integumentary: (x) Normal _
Neurologic: (x) abNormal _parkinson, ataxic gait, hallucinations
Psychiatric: (x) Normal _
Endocrine: (x) Normal _
Hematologic/Lymphatic: (x) Normal _
Allergic/Immunologic: (x) Normal _
�
Medications:�
Active Current Visit Medication List
Category Date Time Status
Acetaminophen [Tylenol] Med 04/23/25 03:55 Active
650 mg PO Q4HPRN PRN
Apixaban [Eliquis] Med 04/20/25 20:00 Active
5 mg PO BID
Atorvastatin [Lipitor] Med 04/21/25 08:00 Active
10 mg PO DAILY
Carbidopa/Levodopa [Sinemet 25-100] Med 04/20/25 20:00 Active
2 tablet PO 0800,1200,1600,2000
Cholecalciferol (Vitamin D3) [VITAMIN D3 ( Med 04/21/25 16:00 Active
cholecalciferol)]
25 mcg PO DAILY@1600
Clonazepam [Klonopin] Med 04/20/25 18:00 Active
0.5 mg PO QPM
Clonazepam [Klonopin] Med 04/20/25 20:00 Active
1 mg PO DAILY@2000
Clonazepam [Klonopin] Med 04/20/25 17:56 Active
1 mg PO HSPRN PRN repeat dose if wakes up during sleep
Cyanocobalamin [Vitamin B-12] Med 04/21/25 13:45 Active
1,000 mcg PO DAILY
Flush (0.9% Sodium Chloride) [Flush (Nss)] Med 04/20/25 18:00 Active
See Dose Instructions IV PER PROTOCOL
Melatonin Med 04/20/25 22:00 Active
10 mg PO HS
Miconazole Nitrate [Desenex/Mitrazol/Zeasorb] Med 04/22/25 20:00 Active
See Dose Instructions TOPICAL BID
Quetiapine Fumarate [Seroquel] Med 04/20/25 20:00 Active
50 mg PO DAILY@2000
Sertraline HCl [Zoloft] Med 04/21/25 08:00 Active
100 mg PO DAILY
pimavanserin [Nuplazid] Med 04/23/25 16:00 Active
See Dose Instructions PO DAILY@1600
Vitals:�
Temp Pulse Resp BP Pulse Ox
98.7 F 74 16 125/86 95
04/25/25 15:15 04/25/25 15:15 04/25/25 15:15 04/25/25 15:15 04/25/25 15:15
Height 5 ft 7 in
Actual Weight 115.212 kg
Body Mass Index (BMI) 39.8
�
Physical Exam:�
General Appearance/Observation: Well-developed, well-nourished individual in no apparent distress.�Tremors LUE and at times on the right
Pain/Comfort Assessment: Denies�
Mood/Affect: Appropriate, flat affect�
�
Integumentary/Operative Site:�
�� Pressure Ulcer Evaluation:
��
�� Other Type of Wound:
��
�
Eyes: Conjunctiva/Lids: normal���� Pupils: pupils equal round
Ears/Nose/Throat: oral mucosa moist,� throat clear.������������ Lips/Teeth/Gums: normal�
Neck: No muscle spasm or tenderness�
Cardiovascular: Heart: regular, no murmur�
Pulses: dorsalis pedis 2+ bilaterally�
Respiratory: Respiratory Effort/Chest Expansion: normal������� Auscultation: Clear to auscultation bilaterally�
Gastrointestinal: abdomen not tender, no distension, girth, normal abdominal bowel sounds
Genitourinary: No Hernandez�
Extremities:�Edema: mild�Cyanosis: None�Trophic�changes: stasis changes
�
Neurology Exam:
Orientation: Alert, Oriented to self, not to time, or Place�. 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
Memory: impaired, Intact for basic info was able to give accurate info mixed with hallucinations. Says his just had a baby
Comprehension: Intact
Two step command: Intact
Naming: Intact
Cranial Nerves:
�� CNII:�Pupillary light reflex: Intact����Visual Field: NT
�� CN III, IV, : Extraocular muscles: impaired tracking of right eye
�� CN V:�Facial Sensation�at�Forehead: Intact,�Maxilla: Intact,�Mandible: Intact
�� CN VII:�Facial movement: Symmetric movement
�� CN VIII:�Hearing: Normal
�� CN IX/X:�Speech & swallow: hypophonia, some drooling�Position of Uvula: Midline
�� CN XI:�Shoulder shrug: Symmetric
��
Sensory:
�� Light touch: Intact in bilateral upper and lower extremities
��
��
�
Reflexes:
��
�� Patellar: absent bilaterally
�� Achilles:absent bilaterally
�� Fela: Negative bilaterally�
Musculoskeletal:
Motor: (Manual muscle scale 0-5)�
Muscle SA EF WE EE FF FA HF KE DF EHL PF
Right� 5 5 5 3 3+ 5 5 5
Left 5 5 5 3 4 5 5 5
�
Tone: Normal in all extremities�
Range of Motion: Passively within normal limits . Delayed with dorsiflexion and plantar flexion but was able to do.
�
Lab Results
Labs
WBC 9.9 10^3/uL (4.8-10.8) 04/21/25 05:31
RBC 5.03 10^6/uL (4.70-6.10) 04/21/25 05:31
Hgb 15.4 g/dL (13.0-18.0) 04/21/25 05:31
Hct 45.8 % (39.0-52.0) 04/21/25 05:31
MCV 91.1 fL (80.0-94.0) 04/21/25 05:31
MCH 30.6 pg (27.0-31.0) 04/21/25 05:31
MCHC 33.6 g/dL (33.0-37.0) 04/21/25 05:31
RDW 13.0 % (11.5-14.5) 04/21/25 05:31
Plt Count 161 10^3/uL (130-400) 04/21/25 05:31
MPV 9.6 fL (7.4-10.4) 04/21/25 05:31
Abs Immat Gran (auto) 0.1 10^3/uL (0-0.05) H 04/21/25 05:31
Absolute Neuts (auto) 7.9 10^3/uL (1.4-6.5) H 04/21/25 05:31
Absolute Lymphs (auto) 1.1 10^3/uL (1.2-3.4) L 04/21/25 05:31
Absolute Monos (auto) 0.6 10^3/uL (0.1-0.6) 04/21/25 05:31
Absolute Eos (auto) 0.2 10^3/uL (0-0.7) 04/21/25 05:31
Absolute Basos (auto) 0.0 10^3/uL (0-0.2) 04/21/25 05:31
Immature Gran % 0.5 % (0-0.5) 04/21/25 05:31
Neutrophils % 80.0 % (42.2-75.2) H 04/21/25 05:31
Lymphocytes % 11.6 % (20.5-51.1) L 04/21/25 05:31
Monocytes % 6.0 % (1.7-9.3) 04/21/25 05:31
Eosinophils % 1.7 % (0-6) 04/21/25 05:31
Basophils % 0.2 % (0-2) 04/21/25 05:31
Nucleated RBC % 0 % (-) 04/21/25 05:31
Sodium 135 mmol/L (135-145) 04/23/25 06:34
Potassium 3.8 mmol/L (3.5-5.1) 04/23/25 06:34
Chloride 102 mmol/L (98-107) 04/23/25 06:34
Carbon Dioxide 29 mmol/L (22-30) 04/23/25 06:34
BUN 20 mg/dl (9-20) 04/23/25 06:34
Creatinine 0.8 mg/dL (0.7-1.3) 04/23/25 06:34
Estimated Creat Clear 97 ml/min 04/23/25 06:34
eGFR > 60.00 04/23/25 06:34
Glucose 109 mg/dl (70-99) H 04/23/25 06:34
Hemoglobin A1c 5.7 % (4.0-5.9) 04/21/25 05:31
Calcium 8.7 mg/dl (8.4-10.2) 04/23/25 06:34
Ferritin 185.0 ng/ml (17.9-464.0) 04/21/25 05:31
Total Bilirubin 0.7 mg/dl (0.2-1.3) 04/20/25 12:57
AST 20 U/L (17-59) 04/20/25 12:57
ALT < 10 U/L (0-50) 04/20/25 12:57
Alkaline Phosphatase 74 U/L (38-126) 04/20/25 12:57
Phu-C-Zazbhlehlmz Pept 736 pg/ml 04/20/25 12:57
Total Protein 7.1 g/dl (6.3-8.2) 04/20/25 12:57
Albumin 4.3 g/dl (3.5-5.0) 04/20/25 12:57
Vitamin B12 343 pg/ml (239-931) 04/21/25 05:31
Folate 4.7 ng/ml (2.76-20) 04/21/25 05:31
TSH (Reflex) 3.04 uIU/ml (0.47-4.68) 04/21/25 05:31
Urine Color Yellow 04/20/25 12:57
Urine Clarity Clear (Clear) 04/20/25 12:57
Urine pH 7.0 (5.0-9.0) 04/20/25 12:57
Ur Specific [place] 1.010 (<1.030) 04/20/25 12:57
Urine Ketones Negative (Negative) 04/20/25 12:57
Ur Occult Blood Reflex Negative (Negative) 04/20/25 12:57
Urine Nitrite (Reflex) Negative (Negative) 04/20/25 12:57
Urine Bilirubin Negative (Negative) 04/20/25 12:57
Urine Urobilinogen Negative (Neg - 1+) 04/20/25 12:57
Leukocyte Esterase Rfl Negative (Negative) 04/20/25 12:57
Urine Glucose Negative (Negative) 04/20/25 12:57
Urine Albumin (Reflex) Negative (Neg - Trace) 04/20/25 12:57
Hepatitis C Antibody Negative (Negative) 04/21/25 05:31
�
Diagnostic Results:�as per HPI�
Brain MRI�04/21/2025
Axial FLAIR sequence demonstrates mild hyperintensity within the periventricular and deep subcortical white matter, likely related to chronic small vessel ischemic changes. No suspicious abnormal parenchymal signal intensity, mass effect, midline
shift, or extra-axial collection. No hydrocephalus. No abnormal signal on diffusion imaging to suggest acute infarct.
The brain similarly noted terminating within the left basal ganglia.
The visualized paranasal sinuses and mastoid air cells are clear.
The vascular structures at the skull base are unremarkable.
IMPRESSION:
No acute intracranial abnormality noted.
Chest x-ray �04/20/2025
The lungs appear clear. Cardiac silhouette size is enlarged with no evidence for pulmonary edema or pleural effusion.
There is a right chest wall battery pack with lead/electrode extending superiorly, extending into the right neck and extending superior to the [id number].
Moderate to severe degenerative change of the glenohumeral joints bilaterally with prominent inferior spurring.
IMPRESSION:
The lungs appear clear.
�
Assessment: 74 years old male with Parkinson disease presents with cognitive and motor decline. Workup has been acutely negative
�
Plan�
�PT/OT to increase independence with ADLs, improve balance, coordination, endurance, strength, mobility, community reintegration, decreased burden of care on others and family education.�
�
Parkinson disease: Continue Sinemet at preadmission dose. Nuplazid
Dysphagia: speech evaluation, oral care protocol, aspiration precautions.� Advance diet as tolerated.�
HTN: continue medications, monitor closely�
HLD: Statin�
Atrial fibrillation:� Continue apixaban. Not on rate control medications �������������������������������������
Psych: Zoloft 100 mg daily, 50 mg, clonazepam 0.5 mg every afternoon.adjust medications as needed.�
Insomnia: Melatonin 10 mg at bedtime, Seroquel 50 mg qpm
Skin: monitor for pressure sores/rashes/lesions.�
Pain: acetaminophen as needed.�
Bowel: as needed Colace and Senna, PRN bisacodyl.�
Bladder: Time void, PVRs, PRN straight cath.�
DVT Prophylaxis: mechanical and Eliquis�
Pulmonary: Incentive spirometry�
Obesity type 3: Continue to children counselor patient about diet adjustments to control obesity. Body habitus and increased force to move body and extremities causes further difficulty with functional tasks.�
Safety: Continue to reinforce assistance with all transfers.�
Code Status:� Full code
Dispo�(date/plan/equipment needs): Home with family care.� Social history reviewed.�
�
Functional and Medical Goals:�Modified Independent with ADL�s, ambulation, transfers�
�
Discharge Destination:�Patient with progressive symptoms of Parkinson disease without acute finding would benefit from SNF for continued PT/OT/speech
�
�
Thank you for allowing me to care for your patient. Please contact me with any questions or concerns.
Consultation
-
Date/Time Consultation Performed: 04/24/2025
Requesting Provider: Nestor Arguello
Performing Provider: Brittany Syed/Dr. Bernardino Denise
Reason for Consultation: Parskinson's

Documented by User: Bernardino Denise MD 04/26/25 19:29
Consultation - Medical
-
Referring Provider:�Nestor Arguello
Chief Complaint:�Parkinson's
�
History of Present Illness: 74 years old patient with PMH (Parkinson's disease s/p deep brain stimulator implantation June 2024, Paroxysmal atrial fibrillation on Eliquis, Hypertension, Dyslipidemia, Mild intermittent asthma) presented to the ED
with cognitive decline including sundowning, visual hallucinations, worsening gait, falls, concern for right lower extremity weakness.
Initial workup with no evidence of infection or metabolic abnormalities. MRI without intracranial abnormality. Neurology recommended decreasing Seroquel to 50mg at night. Maintaining Sinemet preadmission dose and considering decreasing the dose if
possible.
Per patient's , he was getting therapy at home and was doing well up until his admission. Per son he had intermittent episodes of delirium started about a year and a half ago where he would not remember the episodes. Over the past couple of
weeks he has had persistent episodes of seeing people in the house and remembering them pretty vividly which is different than prior.
�
Past Medical History:�Parkinson disease s/p deep brain stimulator implant-06/2024, Paroxysmal atrial fibrillation on Eliquis, hypertension ,Dyslipidemia, Mild intermittent asthma
Procedure History:�Deep Brain stimulator implant-06/2024
Family History:�non contributory
�
Social History:�
Functional Level Premorbidly:�Independent with some activities, assisted with �
Functional Level Currently:�Eating-max assist, Grooming-Mod assist, Toileting-dependent, UE self care-Max assist, LE self care-Dependent. bed mobility-dependent
�
Tobacco:�Denies�
Alcohol:�Denies�
Drug use:�Denies�
�
Lives with:�Spouse and son
24-hour assistance available:�Not typically, daughter has been working from home to stay with him
Number of floors:�split level 2
# steps to enter:�2
# steps to second floor: Yes
Potential First floor set up:�yes
Driving:�no
Occupation:�retired
�
�
Allergies:�
Allergy/AdvReac Type Severity Reaction Status Date / Time
benzonatate (From Tessalon Allergy Unknown Verified 04/20/25 11:24
[place])
chlorhexidine Allergy Rash Verified 04/20/25 11:24
rotigotine Allergy Unknown Verified 04/20/25 11:24
�
Review of Systems:�Limited with patient cognition
Constitutional: (x) Normal _
Eye: (x) Normal _
Ear/Nose/Throat: (x) Normal _
Respiratory: (x) Normal _
Cardiovascular: (x) Normal _
Gastrointestinal: (x) Normal _
Genitourinary: (x) Normal _
Musculoskeletal: (x) Normal _
Integumentary: (x) Normal _
Neurologic: (x) abNormal _parkinson, ataxic gait, hallucinations
Psychiatric: (x) Normal _
Endocrine: (x) Normal _
Hematologic/Lymphatic: (x) Normal _
Allergic/Immunologic: (x) Normal _
�
Medications:�
Active Current Visit Medication List
Category Date Time Status
Acetaminophen [Tylenol] Med 04/23/25 03:55 Active
650 mg PO Q4HPRN PRN
Apixaban [Eliquis] Med 04/20/25 20:00 Active
5 mg PO BID
Atorvastatin [Lipitor] Med 04/21/25 08:00 Active
10 mg PO DAILY
Carbidopa/Levodopa [Sinemet 25-100] Med 04/20/25 20:00 Active
2 tablet PO 0800,1200,1600,1999
Cholecalciferol (Vitamin D3) [VITAMIN D3 ( Med 04/21/25 16:00 Active
cholecalciferol)]
25 mcg PO DAILY@1600
Clonazepam [Klonopin] Med 04/20/25 18:00 Active
0.5 mg PO QPM
Clonazepam [Klonopin] Med 04/20/25 20:00 Active
1 mg PO DAILY@1999
Clonazepam [Klonopin] Med 04/20/25 17:56 Active
1 mg PO HSPRN PRN repeat dose if wakes up during sleep
Cyanocobalamin [Vitamin B-12] Med 04/21/25 13:45 Active
1,000 mcg PO DAILY
Flush (0.9% Sodium Chloride) [Flush (Nss)] Med 04/20/25 18:00 Active
See Dose Instructions IV PER PROTOCOL
Melatonin Med 04/20/25 22:00 Active
10 mg PO HS
Miconazole Nitrate [Desenex/Mitrazol/Zeasorb] Med 04/22/25 20:00 Active
See Dose Instructions TOPICAL BID
Quetiapine Fumarate [Seroquel] Med 04/20/25 20:00 Active
50 mg PO DAILY@1999
Sertraline HCl [Zoloft] Med 04/21/25 08:00 Active
100 mg PO DAILY
pimavanserin [Nuplazid] Med 04/23/25 16:00 Active
See Dose Instructions PO DAILY@1600
Vitals:�
Temp Pulse Resp BP Pulse Ox
98.7 F 74 16 125/86 95
04/25/25 15:15 04/25/25 15:15 04/25/25 15:15 04/25/25 15:15 04/25/25 15:15
Height 5 ft 7 in
Actual Weight 115.212 kg
Body Mass Index (BMI) 39.8
�
Physical Exam:�
General Appearance/Observation: Well-developed, well-nourished male in no apparent distress.�Tremors LUE and at times on the right
Pain/Comfort Assessment: Denies�
Mood/Affect: Appropriate, flat affect�
�
Integumentary/Operative Site:�No skin lesions noted during course of exam
�� �
Eyes: Conjunctiva/Lids: normal���� Pupils: pupils equal round
Ears/Nose/Throat: oral mucosa moist,� throat clear.������������ Lips/Teeth/Gums: normal�
Neck: No muscle spasm or tenderness�
Cardiovascular: Heart: regular, no murmur�
Pulses: dorsalis pedis 2+ bilaterally�
Respiratory: Respiratory Effort/Chest Expansion: normal������� Auscultation: Clear to auscultation bilaterally�
Gastrointestinal: abdomen not tender, no distension, girth, normal abdominal bowel sounds
Genitourinary: No Hernandez�
Extremities:�Edema: mild�Cyanosis: None�Trophic�changes: stasis changes
�
Neurology Exam:
Orientation: Alert, Oriented to self, not to time, or Place�. 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
Memory: impaired, Intact for basic info was able to give accurate info mixed with hallucinations. Says his just had a baby
Comprehension: Intact
Two step command: Intact
Naming: Intact
Cranial Nerves:
�� CNII:�Pupillary light reflex: Intact����Visual Field: NT
�� CN III, IV, : Extraocular muscles: impaired tracking of right eye
�� CN V:�Facial Sensation�at�Forehead: Intact,�Maxilla: Intact,�Mandible: Intact
�� CN VII:�Facial movement: Symmetric movement
�� CN VIII:�Hearing: Normal
�� CN IX/X:�Speech & swallow: hypophonia, some drooling�Position of Uvula: Midline
�� CN XI:�Shoulder shrug: Symmetric
��
Sensory:
�� Light touch: Intact in bilateral upper and lower extremities
��
��
Reflexes:
�� Patellar: absent bilaterally
�� Achilles:absent bilaterally
�� Fela: Negative bilaterally�
Musculoskeletal:
Motor: (Manual muscle scale 0-5)�
Muscle SA EF WE EE FF FA HF KE DF EHL PF
Right� 5 5 5 5 3 3+ 5 5 5
Left 5 5 5 5 3 4 5 5 5
�
Tone: Normal in all extremities�
Range of Motion: Passively within normal limits . Delayed with dorsiflexion and plantar flexion but was able to do with reinforcement.
�
Lab Results
Labs
WBC 9.9 10^3/uL (4.8-10.8) 04/21/25 05:31
RBC 5.03 10^6/uL (4.70-6.10) 04/21/25 05:31
Hgb 15.4 g/dL (13.0-18.0) 04/21/25 05:31
Hct 45.8 % (39.0-52.0) 04/21/25 05:31
MCV 91.1 fL (80.0-94.0) 04/21/25 05:31
MCH 30.6 pg (27.0-31.0) 04/21/25 05:31
MCHC 33.6 g/dL (33.0-37.0) 04/21/25 05:31
RDW 13.0 % (11.5-14.5) 04/21/25 05:31
Plt Count 161 10^3/uL (130-400) 04/21/25 05:31
MPV 9.6 fL (7.4-10.4) 04/21/25 05:31
Abs Immat Gran (auto) 0.1 10^3/uL (0-0.05) H 04/21/25 05:31
Absolute Neuts (auto) 7.9 10^3/uL (1.4-6.5) H 04/21/25 05:31
Absolute Lymphs (auto) 1.1 10^3/uL (1.2-3.4) L 04/21/25 05:31
Absolute Monos (auto) 0.6 10^3/uL (0.1-0.6) 04/21/25 05:31
Absolute Eos (auto) 0.2 10^3/uL (0-0.7) 04/21/25 05:31
Absolute Basos (auto) 0.0 10^3/uL (0-0.2) 04/21/25 05:31
Immature Gran % 0.5 % (0-0.5) 04/21/25 05:31
Neutrophils % 80.0 % (42.2-75.2) H 04/21/25 05:31
Lymphocytes % 11.6 % (20.5-51.1) L 04/21/25 05:31
Monocytes % 6.0 % (1.7-9.3) 04/21/25 05:31
Eosinophils % 1.7 % (0-6) 04/21/25 05:31
Basophils % 0.2 % (0-2) 04/21/25 05:31
Nucleated RBC % 0 % (-) 04/21/25 05:31
Sodium 135 mmol/L (135-145) 04/23/25 06:34
Potassium 3.8 mmol/L (3.5-5.1) 04/23/25 06:34
Chloride 102 mmol/L (98-107) 04/23/25 06:34
Carbon Dioxide 29 mmol/L (22-30) 04/23/25 06:34
BUN 20 mg/dl (9-20) 04/23/25 06:34
Creatinine 0.8 mg/dL (0.7-1.3) 04/23/25 06:34
Estimated Creat Clear 97 ml/min 04/23/25 06:34
eGFR > 60.00 04/23/25 06:34
Glucose 109 mg/dl (70-99) H 04/23/25 06:34
Hemoglobin A1c 5.7 % (4.0-5.9) 04/21/25 05:31
Calcium 8.7 mg/dl (8.4-10.2) 04/23/25 06:34
Ferritin 185.0 ng/ml (17.9-464.0) 04/21/25 05:31
Total Bilirubin 0.7 mg/dl (0.2-1.3) 04/20/25 12:57
AST 20 U/L (17-59) 04/20/25 12:57
ALT < 10 U/L (0-50) 04/20/25 12:57
Alkaline Phosphatase 74 U/L (38-126) 04/20/25 12:57
Dpc-Z-Hunkasxqloq Pept 736 pg/ml 04/20/25 12:57
Total Protein 7.1 g/dl (6.3-8.2) 04/20/25 12:57
Albumin 4.3 g/dl (3.5-5.0) 04/20/25 12:57
Vitamin B12 343 pg/ml (239-931) 04/21/25 05:31
Folate 4.7 ng/ml (2.76-20) 04/21/25 05:31
TSH (Reflex) 3.04 uIU/ml (0.47-4.68) 04/21/25 05:31
Urine Color Yellow 04/20/25 12:57
Urine Clarity Clear (Clear) 04/20/25 12:57
Urine pH 7.0 (5.0-9.0) 04/20/25 12:57
Ur Specific [place] 1.010 (<1.030) 04/20/25 12:57
Urine Ketones Negative (Negative) 04/20/25 12:57
Ur Occult Blood Reflex Negative (Negative) 04/20/25 12:57
Urine Nitrite (Reflex) Negative (Negative) 04/20/25 12:57
Urine Bilirubin Negative (Negative) 04/20/25 12:57
Urine Urobilinogen Negative (Neg - 1+) 04/20/25 12:57
Leukocyte Esterase Rfl Negative (Negative) 04/20/25 12:57
Urine Glucose Negative (Negative) 04/20/25 12:57
Urine Albumin (Reflex) Negative (Neg - Trace) 04/20/25 12:57
Hepatitis C Antibody Negative (Negative) 04/21/25 05:31
�
Diagnostic Results:�as per HPI�
Brain MRI�04/21/2025
Axial FLAIR sequence demonstrates mild hyperintensity within the periventricular and deep subcortical white matter, likely related to chronic small vessel ischemic changes. No suspicious abnormal parenchymal signal intensity, mass effect, midline
shift, or extra-axial collection. No hydrocephalus. No abnormal signal on diffusion imaging to suggest acute infarct.
The brain similarly noted terminating within the left basal ganglia.
The visualized paranasal sinuses and mastoid air cells are clear.
The vascular structures at the skull base are unremarkable.
IMPRESSION:
No acute intracranial abnormality noted.
Chest x-ray �04/20/2025
The lungs appear clear. Cardiac silhouette size is enlarged with no evidence for pulmonary edema or pleural effusion.
There is a right chest wall battery pack with lead/electrode extending superiorly, extending into the right neck and extending superior to the [id number].
Moderate to severe degenerative change of the glenohumeral joints bilaterally with prominent inferior spurring.
IMPRESSION:
The lungs appear clear.
�
Assessment:
74 year old male PMH (Parkinson disease s/p deep brain stimulator implant-06/2024, Paroxysmal atrial fibrillation on Eliquis, hypertension ,Dyslipidemia, Mild intermittent asthma) presents with cognitive and motor decline as well as acute metabolic
encephalopathy resulting in ADL, ambulatory, and cognitive dysfunction.
Plan�
�PT/OT to increase independence with ADLs, improve balance, coordination, endurance, strength, mobility, community reintegration, decreased burden of care on others and family education.�
�
Parkinson disease: Continue Sinemet at preadmission dose. Nuplazid
HTN: continue medications, monitor closely�
HLD: Statin�
Atrial fibrillation:� Continue apixaban. Not on rate control medications �������������������������������������
Psych: Zoloft 100 mg daily, 50 mg, clonazepam 0.5 mg every afternoon.adjust medications as needed.�
Insomnia: Melatonin 10 mg at bedtime, Seroquel 50 mg qpm
Skin: monitor for pressure sores/rashes/lesions.�
Pain: acetaminophen as needed.�
Bowel: as needed Colace and Senna, PRN bisacodyl.�
Bladder: Time void, PVRs, PRN straight cath.�
DVT Prophylaxis: mechanical and Eliquis�
Pulmonary: Incentive spirometry�
Obesity type 3: Continue to children counselor patient about diet adjustments to control obesity. Body habitus and increased force to move body and extremities causes further difficulty with functional tasks.�
Safety: Continue to reinforce assistance with all transfers.�
Code Status:� Full code
Dispo�(date/plan/equipment needs): Home with family care.� Social history reviewed.�
Functional and Medical Goals:�Modified Independent with ADL�s, ambulation, transfers�
Discharge Destination:�Patient with progressive symptoms of Parkinson disease without acute finding would benefit from SNF for continued PT/OT/speech
Attending Statement:
I saw and examined the patient today. Reviewed care plan with patient, therapy, nursing, and physician workforce development assistant. I agree with the above subjective and physical exam, and plan as documented by [facility] Syed with adjustments made as necessary. A
total of 60 minutes were spent with the patient preparing for the evaluation, obtaining history, performing examination and evaluation, counseling, data review, case management, care coordination, bordereau clerk, and EMR documentation.�
�
Thank you for allowing me to care for your patient. Please contact me with any questions or concerns.
[2025-04-25] MEDS: SEROQUEL 50 MG PO (20:00)
[2025-04-25] MEDS: KLONOPIN 1 MG PO (20:01)
[2025-04-25] MEDS: MELATONIN 10 MG PO (21:00)
[2025-04-25 23:22] VITALS: BP 131/77
[2025-04-26 07:30] VITALS: BP 149/88
[2025-04-26] MEDS: VITAMIN B-12 1000 MCG PO (08:06)
[2025-04-26] MEDS: ZOLOFT 100 MG PO (08:06)
[2025-04-26] MEDS: ELIQUIS 5 MG PO ×2 (08:06→19:52)
[2025-04-26] MEDS: LIPITOR 10 MG PO (08:06)
[2025-04-26] MEDS: DESENEX/MITRAZOL/ZEASORB 1 APPLIC TOPICAL ×2 (08:17→19:55)
[2025-04-26] MEDS: SINEMET 25-100 2 TABLET PO ×4 (08:19→19:52)
--- NOTE | 2025-04-26 11:26 | W.PN.NEURO.1 ---
Today's Communication / Plan
-
Due to persistent nighttime agitation, increase quetiapine again from 50 mg to 75 mg. Patient originally was at 100 mg when he presented to the hospital
Increase of pimavanserin is not possible as the medication has 1 dose of 34 mg available
Provide thiamine
Continue carbidopa/levodopa 25/100 two tabs 4 times a day
Neuro Assessment/Plan
Assessment
Parkinson's disease with likely Parkinson's disease dementia.
Plan
Due to persistent nighttime agitation, increase quetiapine again from 50 mg to 75 mg. Patient originally was at 100 mg when he presented to the hospital
Increase of pimavanserin is not possible as the medication has 1 dose of 34 mg available
Provide thiamine
Continue carbidopa/levodopa 25/100 two tabs 4 times a day
Will follow as needed. Patient should follow with his usual outpatient neurologist.
Subjective/Objective
Subjective Data
Date of Service: April 26, 2025
Objective Data
Vital Signs
Temp Pulse Resp BP Pulse Ox
36.4 C 72 16 149/88 96
04/26/25 07:30 04/26/25 07:30 04/26/25 07:30 04/26/25 07:30 04/26/25 10:56
Lab Results
04/21/25 05:31
04/23/25 06:34
Sodium 135 mmol/L (135-145) 04/23/25 06:34
Potassium 3.8 mmol/L (3.5-5.1) 04/23/25 06:34
BUN 20 mg/dl (9-20) 04/23/25 06:34
Glucose 109 mg/dl (70-99) H 04/23/25 06:34
Calcium 8.7 mg/dl (8.4-10.2) 04/23/25 06:34
Lmd-Q-[id number] Pept 736 pg/ml 04/20/25 12:57
Vitamin B12 343 pg/ml (025-148) 04/21/25 05:31
Patient Allergies
benzonatate (From Lauracarol[facility] Viveros) Allergy (Verified 04/20/25 11:24)
Unknown
chlorhexidine Allergy (Verified 04/20/25 11:24)
Rash
rotigotine Allergy (Verified 04/20/25 11:24)
Unknown
Data Reviewed
-
Labs: Report Reviewed
Reviewed with: Physician and Family
Old Records: Summarized
--- NOTE | 2025-04-26 11:57 | PN.CDI ---
Addendum entered and electronically signed by Nestor Patricio MD 05/03/25 16:44:
Documentation is complete
Original Note:
CDI
- -
CDI:
Physician Documentation Request
Admit Date: 04/24/25 08:41
Dear Doctor,
Patient admitted for change in mental status.
H&P: 'Acute metabolic encephalopathy possibly polypharmacy versus suspected worsening dementia likely Lewy body dementia'
04/25 Hospitalist PN: 'Suspect etiology for cognitive decline and motor dysfunction is progression of his underlying Parkinson's disease.'
The diagnosis of acute metabolic encephalopathy was documented on 04/20, but is not consistently noted in subsequent documentation.
Please clarify the following:
____ - Acute metabolic encephalopathy was present on admission and is now resolved.
____ - Acute metabolic encephalopathy was present on admission and is still being monitored, evaluated or treated
____ - Acute metabolic encephalopathy was ruled out
____ - Acute metabolic encephalopathy is still a likely, suspected, probable diagnosis
____ - Other
____ - Unable to determine
Use of terms such as suspected, likely, concern for, or probable (associated with a specific diagnosis that is being evaluated, monitored, or treated as if it exists) are acceptable and can be coded in the inpatient setting, when documented at the
time of discharge.
Thank you,
Gail Olivier RN, BSN
CDI Specialist
Available via [place] text
Please use your independent medical judgment in providing your response.
--- NOTE | 2025-04-26 12:08 | CM ---
Addendum entered by Gabby Johns 04/26/25 16:21:
Met with before she went home. She is aware that [facility] was unable to accept.
has a connection at the [facility] and is going to call them
CM left a VM for Radha @ [facility] in [place] to call tomorrow with referral status
Addendum entered by Gabby Johns 04/26/25 15:14:
[facility] unable to accept referral
Addendum entered by Gabby Johns 04/26/25 14:17:
is agreeable with sending SNF referrals to [facility], [facility], and [facility]
Addendum entered by Gabby Johns 04/26/25 13:24:
[facility] unable to accept patient
Original Note:
Met with and patient at bedside to discuss status of SNF referrals sent; all but one unable to accept
Explained that VANNESA spoke with Violeta @ [facility]; referral in review and will call me back today
Suggested to that she consider alternative site options in the event that [facility] unable to accept
Plan: Discharge to SNF pending site placement availability
[2025-04-26] MEDS: THIAMINE INJECTION 100 MG IV (12:14)
[2025-04-26 13:00] VITALS: BMI 39.8
--- NOTE | 2025-04-26 14:06 | W.PN.HOSP.TC ---
Today's Communication/Plan
-
Plan of care discussed with neurology and patient's at the bedside
Monitor for nighttime agitation
Seroquel dose increased to 75 mg at bedtime
Provide additional low-dose of lorazepam if required
Ongoing disposition efforts to care home facility
Assessment / Plan
Assessment / Plan
Impression:
74 years old male with Parkinson disease presents with cognitive and motor decline.
Other conditions
Paroxysmal atrial fibrillation.
Anticoagulation with apixaban
Essential hypertension
Dyslipidemia
Mild intermittent asthma
Plan
74 years old patient with Parkinson's disease status post deep brain stimulator implantation June 2024 presents with cognitive decline including sundowning, visual hallucinations as well as motor decline with worsening of gait, falls, concern for
right lower extremity weakness.
Initial workup with no evidence of infection or metabolic abnormalities
Nontoxic-appearing
Neurologic exam with patient alert awake and negative x 3. Resting tremor mostly pronounced in the left upper extremity with no other focal abnormality. Ataxic shuffling gait.
Imaging with MRI of the brain showed no focal intracranial abnormalities
Neurology has signed off.
Continue carbidopa levodopa at preadmission dose.
Continue Nuplazid -so far he has not received any doses in the hospital as it is non-formulary. I did ask his to bring it in today.
Originally Seroquel dose reduced to 50 mg at bedtime, although with nighttime agitation increase back to 75 mg daily (preadmission dose 100 g daily)
Continue sertraline and clonazepam
PT/OT evaluation
Physiatry evaluation with consideration of acute rehab
Suspect etiology for cognitive decline and motor dysfunction is progression of his underlying Parkinson's disease.
Paroxysmal atrial fibrillation.
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
Continue thromboembolic prophylaxis with apixaban.
Dyslipidemia on atorvastatin
Low end of normal range B12 level noted. Started on oral repletion.
Full code
Dispo -medically stable for discharge to acute rehab. Case management aware.
Anticipated Discharge: 24 - 48 hours
Subjective/Interval History
-
Date of Service: April 26, 2025
Objective Data
-
Vital Signs:
Vital Signs
Temp Pulse Resp BP Pulse Ox
97.6 F 72 16 149/88 96
04/26/25 07:30 04/26/25 07:30 04/26/25 07:30 04/26/25 07:30 04/26/25 10:56
I&O
04/25/25 04/26/25 04/27/25
06:59 06:59 06:59
Intake Total 1140 / 1140 360 / 360
Balance 1140 / 1140 360 / 360
Physical Exam
-
General: Well Developed and No Apparent Distress
HEENT: Normocephalic, Atraumatic and Moist Mucous Membranes
Respiratory: Clear to Auscultation
Cardiac: Regular Rhythm and S1/S2; Negative Murmur, Rub or Gallop
GI: Soft, Nontender, Nondistended and Normal Bowel Sounds; Negative Organomegaly
Rectal: Deferred by Provider
Musculoskeletal: No Clubbing, No Cyanosis and No Edema
Skin: Negative Rash
Neuro: Awake, Alert, Oriented and Nonfocal/Grossly Intact
[2025-04-26 15:25] VITALS: BP 114/71
[2025-04-26] MEDS: VITAMIN D3 (cholecalciferol) 25 MCG PO (17:00)
[2025-04-26] MEDS: NON-FORMULARY ITEM 34 MG PO (17:01)
[2025-04-26] MEDS: KLONOPIN 0.5 MG PO (17:02)
[2025-04-26] MEDS: KLONOPIN 1 MG PO (19:52)
[2025-04-26] MEDS: SEROQUEL 75 MG PO (21:41)
[2025-04-26] MEDS: MELATONIN 10 MG PO (21:42)
[2025-04-26 23:43] VITALS: BP 136/78
[2025-04-27 07:00] VITALS: BP 159/92
[2025-04-27] MEDS: LIPITOR 10 MG PO (09:13)
[2025-04-27] MEDS: THIAMINE INJECTION 100 MG IV (09:14)
[2025-04-27] MEDS: ZOLOFT 100 MG PO (09:14)
[2025-04-27] MEDS: ELIQUIS 5 MG PO ×2 (09:14→20:16)
[2025-04-27] MEDS: VITAMIN B-12 1000 MCG PO (09:18)
[2025-04-27] MEDS: SINEMET 25-100 2 TABLET PO ×4 (09:18→20:18)
[2025-04-27] MEDS: DESENEX/MITRAZOL/ZEASORB 1 APPLIC TOPICAL ×2 (09:20→20:20)
[2025-04-27 13:00] VITALS: BMI 39.8
--- NOTE | 2025-04-27 13:18 | PN.CDI ---
CDI
- -
CDI:
Physician Documentation Request
Admit Date: 04/24/25 08:41
Dear Doctor,
Patient admitted for Parkinsons.
Please review the following and provide your response in the progress notes.
Clinical Indicators:
Height: 5' 7'
Weight: 263 lbs
BMI: 41.3
If possible, please provide an associated diagnosis related to the abnormal BMI, such as:
Obese
Overweight
BMI is not significant
Other
BMI > or = to 40
Overweight
Obesity:
Due to excess calories
Drug induced
Due to other cause
Severe or morbid obesity:
With alveolar hypoventilation (Obesity hypoventilation syndrome)
Without alveolar hypoventilation
Use of terms such as suspected, likely, concern for, or probable (associated with a specific diagnosis that is being evaluated, monitored, or treated as if it exists) are acceptable and can be coded in the inpatient setting, when documented at the
time of discharge.
Thank you,
Gail Olivier RN, BSN
CDI Specialist
Available via [place] text
Please use your independent medical judgment in providing your response.
[2025-04-27 15:00] VITALS: BP 138/78
--- NOTE | 2025-04-27 15:11 | CM ---
F/U: VANNESA Rico covering this patient today. Read notes, saw many SNF's have declined the patient, called the , she gave more options, but 3 were [facility] or [facility]. Found 2 that are willing to consider the patient tomorrow (because
need to meet 1 more midnight w/ Medicare) after they are called and given update on his behavior overnight: [facility] (called [facility]) and [facility] (call Keely #[phone]). was informed of this plan and expecting a call tomorrow, and
Hospitalist is aware. PLAN: SNF to [facility] or [facility].
--- NOTE | 2025-04-27 15:29 | W.PN.HOSP.TC ---
Today's Communication/Plan
-
Placement
Assessment / Plan
Assessment / Plan
Impression:
74 years old male with Parkinson disease presents with cognitive and motor decline.
Other conditions
Paroxysmal atrial fibrillation.
Anticoagulation with apixaban
Essential hypertension
Dyslipidemia
Mild intermittent asthma
Plan
74 years old patient with Parkinson's disease status post deep brain stimulator implantation June 2024 presents with cognitive decline including sundowning, visual hallucinations as well as motor decline with worsening of gait, falls, concern for
right lower extremity weakness.
Initial workup with no evidence of infection or metabolic abnormalities
Nontoxic-appearing
Neurologic exam with patient alert awake and negative x 3. Resting tremor mostly pronounced in the left upper extremity with no other focal abnormality. Ataxic shuffling gait.
Imaging with MRI of the brain showed no focal intracranial abnormalities
Neurology has signed off.
Continue carbidopa levodopa at preadmission dose.
Continue Nuplazid -so far he has not received any doses in the hospital as it is non-formulary. I did ask his to bring it in today.
Originally Seroquel dose reduced to 50 mg at bedtime, although with nighttime agitation increase back to 75 mg daily (preadmission dose 100 g daily)
Continue sertraline and clonazepam
PT/OT evaluation
Physiatry evaluation with consideration of acute rehab
Suspect etiology for cognitive decline and motor dysfunction is progression of his underlying Parkinson's disease.
Paroxysmal atrial fibrillation.
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
Continue thromboembolic prophylaxis with apixaban.
Dyslipidemia on atorvastatin
Low end of normal range B12 level noted. Started on oral repletion.
Full code
Dispo -medically stable for discharge to acute rehab. Case management aware.
Anticipated Discharge: Within 24 hours
Subjective/Interval History
-
Date of Service: April 27, 2025
Objective Data
-
Vital Signs:
Vital Signs
Temp Pulse Resp BP Pulse Ox
98.9 F 76 20 159/92 95
04/27/25 07:00 04/27/25 07:00 04/27/25 07:00 04/27/25 07:00 04/27/25 12:00
I&O
04/26/25 04/27/25 04/28/25
06:59 06:59 06:59
Intake Total 360 / 360 720 / 720
Balance 360 / 360 720 / 720
Physical Exam
-
General: Well Developed and No Apparent Distress
HEENT: Normocephalic, Atraumatic and Moist Mucous Membranes
Respiratory: Clear to Auscultation
Cardiac: Regular Rhythm and S1/S2; Negative Murmur, Rub or Gallop
GI: Soft, Nontender, Nondistended and Normal Bowel Sounds; Negative Organomegaly
Rectal: Deferred by Provider
Musculoskeletal: No Clubbing, No Cyanosis and No Edema
Skin: Negative Rash
Neuro: Awake, Alert, Oriented and Nonfocal/Grossly Intact
[2025-04-27 15:59] VITALS: BP 144/83; PULSE 83; O2SAT 96
[2025-04-27] MEDS: VITAMIN D3 (cholecalciferol) 25 MCG PO (18:16)
[2025-04-27] MEDS: KLONOPIN 0.5 MG PO (18:16)
[2025-04-27] MEDS: NON-FORMULARY ITEM 34 MG PO (18:17)
[2025-04-27] MEDS: KLONOPIN 1 MG PO (20:16)
[2025-04-27] MEDS: MELATONIN 10 MG PO (22:35)
[2025-04-27] MEDS: SEROQUEL 75 MG PO (22:35)
[2025-04-27 23:37] VITALS: BP 151/81
[2025-04-28] MEDS: VALIUM INJECTION 2 MG IV (01:05)
[2025-04-28 07:00] VITALS: BP 161/95
[2025-04-28] MEDS: LIPITOR 10 MG PO (08:30)
[2025-04-28] MEDS: VITAMIN B-12 1000 MCG PO (08:30)
[2025-04-28] MEDS: ZOLOFT 100 MG PO (08:30)
[2025-04-28] MEDS: ELIQUIS 5 MG PO ×2 (08:31→19:53)
[2025-04-28] MEDS: THIAMINE INJECTION 100 MG IV (08:31)
[2025-04-28] MEDS: SINEMET 25-100 2 TABLET PO ×3 (08:34→19:53)
[2025-04-28] MEDS: DESENEX/MITRAZOL/ZEASORB 1 APPLIC TOPICAL ×2 (08:37→19:55)
--- NOTE | 2025-04-28 11:27 | CM ---
Addendum entered by Radha Villa 04/28/25 14:41:
CM spoke with pt's via telephone and updated regarding efforts to find SNF placement for [facility]. She is aware of pt's behavior earlier today.
CM will continue to follow for SNF transfer pending medical stability and accepting facility.
Original Note:
CM spoke with RN on 2N today. Pt received IV valium due to combativeness and spitting out his medications. CM updated Keely at [facility] regarding pt not cleared for discharge at this time; Keely was not sure if they would be able to accept
him for admission (even prior to today's event). [facility] is also following for possible admission.
Plan: CM will continue to follow for SNF transfer pending medical stability and accepting facility.
[2025-04-28] MEDS: ATIVAN 1 MG IM (12:03)
--- NOTE | 2025-04-28 12:10 | PTCARENOTE ---
Patient agitated, uncooperative, and combative with staff; Dr. Patricio notified; Ativan IM administered per order.
[2025-04-28] MEDS: SINEMET 25-100 PO (12:11)
[2025-04-28 15:00] VITALS: BP 137/88
--- NOTE | 2025-04-28 15:56 | CM ---
Per RN, pt agitated, uncooperative and combative. IM Ativan given.
CM will continue to follow; pt will not be accepted to SNF with his current behavior.
--- NOTE | 2025-04-28 16:35 | W.PN.HOSP.TC ---
Today's Communication/Plan
-
Periodic agitation with sundowning
Given cognitive status not able to participate with physical therapy.
While on standing dose of Seroquel, recently increased to 75 mg at bedtime, clonazepam, require additional doses of lorazepam almost on a daily basis to control agitation.
Will ask psychiatry to help with complex medication regimen.
Repeat BMP
Assessment / Plan
Assessment / Plan
Impression:
74 years old male with Parkinson disease presents with cognitive and motor decline.
Other conditions
Paroxysmal atrial fibrillation.
Anticoagulation with apixaban
Essential hypertension
Dyslipidemia
Mild intermittent asthma
Plan
74 years old patient with Parkinson's disease status post deep brain stimulator implantation June 2024 presents with cognitive decline including sundowning, visual hallucinations as well as motor decline with worsening of gait, falls, concern for
right lower extremity weakness.
Initial workup with no evidence of infection or metabolic abnormalities
Nontoxic-appearing
Neurologic exam with patient alert awake and negative x 3. Resting tremor mostly pronounced in the left upper extremity with no other focal abnormality. Ataxic shuffling gait.
Imaging with MRI of the brain showed no focal intracranial abnormalities
Neurology has signed off.
Continue carbidopa levodopa at preadmission dose.
Continue Nuplazid -so far he has not received any doses in the hospital as it is non-formulary. I did ask his to bring it in today.
Originally Seroquel dose reduced to 50 mg at bedtime, although with nighttime agitation increase back to 75 mg daily (preadmission dose 100 g daily)
Continue sertraline and clonazepam. Given periodic agitation required additional doses of lorazepam almost on a daily basis.
PT/OT evaluation
Physiatry evaluation with consideration of acute rehab
Suspect etiology for cognitive decline and motor dysfunction is progression of his underlying Parkinson's disease.
Paroxysmal atrial fibrillation.
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
Continue thromboembolic prophylaxis with apixaban.
Dyslipidemia on atorvastatin
Low end of normal range B12 level noted. Started on oral repletion.
Full code
Dispo -medically stable for discharge to acute rehab. Case management aware.
Anticipated Discharge: 24 - 48 hours
Subjective/Interval History
-
Date of Service: April 28, 2025
Objective Data
-
Vital Signs:
Vital Signs
Temp Pulse Resp BP Pulse Ox
98.1 F 71 20 137/88 99
04/28/25 15:00 04/28/25 15:00 04/28/25 15:00 04/28/25 15:00 04/28/25 15:00
I&O
04/27/25 04/28/25 04/29/25
06:59 06:59 06:59
Intake Total 720 / 720 840 / 840
Balance 720 / 720 840 / 840
Physical Exam
-
General: Well Developed and No Apparent Distress
HEENT: Normocephalic, Atraumatic and Moist Mucous Membranes
Respiratory: Clear to Auscultation
Cardiac: Regular Rhythm and S1/S2; Negative Murmur, Rub or Gallop
GI: Soft, Nontender, Nondistended and Normal Bowel Sounds; Negative Organomegaly
Rectal: Deferred by Provider
Musculoskeletal: No Clubbing, No Cyanosis and No Edema
Skin: Negative Rash
Neuro: Awake, Alert, Oriented and Nonfocal/Grossly Intact
[2025-04-28] MEDS: VITAMIN D3 (cholecalciferol) 25 MCG PO (17:26)
[2025-04-28] MEDS: NON-FORMULARY ITEM 34 MG PO (17:26)
[2025-04-28] MEDS: KLONOPIN 0.5 MG PO (17:29)
--- NOTE | 2025-04-28 18:13 | CS.PSYCHR ---
Consult Summary - Psychiatry
-
pt seen in consultation for assistance with med management for agitation
74 yo man with Parkinson's disease, refractory to treatment, worsening cognitive decline over past month; likely Lewy body dementia
Has been maxed out with sinemet, has deep brain stimulator placed on left, receiving Nuplazid for vivid visual hallucinations, sertraline for depression and anxiety, quetiapine at low dose for agitation,klonopin.
Had fall last month with head strike but no findings on CT (pt on eliquis) similarly no sig findings on MRI this admission.
No prior psychiatric history that can be found, though noted to be anxious at times (hence zoloft and klonopin.)
Pt is uncertain historian but gives history of being born and raised in [place], attended [employer], college in [place] (?) Worked for [employer] for 24 years.
, claims to have 9 children (but also claims to be 28 years old, and wearing a suit when in fact naked.)
Mental status exam notable for lying in bed with polo shirt pulled behind head, wearing socks but otherwise naked. Initially denies being naked (when I asked about covering him) then agreed he had no pants on (still insists he is wearing a t-shirt)
Marked coarse all over tremor.
Oriented to person only (give first name as Eddie) thinks he is in a hotel, in [place]. When told he is in a hospital appears startled, asks 'A hospital? What's wrong with me?' I mention trouble with his memory, which he denies. Gives multiple
guesses at his age, after first asking me my age. I told him, but in 5 minutes he does not remember.
Impression: Lewy body dementia with significant cognitive impairment as well as marked parkinsonism
Medication management of agitation problematic, but will try making adjustments.
Would add depakote 250 mg bid, would try limiting clonazepam, keep quetiapine stable
[2025-04-28 18:57] LABS: Blood Urea Nitrogen 24 mg/dl (9-20); Calcium 9.1 mg/dl (8.4-10.2); Carbon Dioxide 29 mmol/L (22-30); Chloride 101 mmol/L (98-107); Estimated Creatinine Clearance 111 ml/min; Glucose 131 mg/dl (70-99); Potassium 3.9 mmol/L (3.5-5.1); Sodium 134 mmol/L (135-145); eGFR > 60.00
[2025-04-28] MEDS: KLONOPIN 1 MG PO (19:48)
[2025-04-28] MEDS: DEPAKOTE ER (24 HR RELEASE) 250 MG PO (19:48)
[2025-04-28] MEDS: MELATONIN 10 MG PO (20:00)
[2025-04-28] MEDS: SEROQUEL 75 MG PO (20:00)
[2025-04-28 23:58] VITALS: BP 125/78
[2025-04-29 07:25] VITALS: BP 128/74
[2025-04-29] MEDS: DEPAKOTE ER (24 HR RELEASE) 250 MG PO ×2 (09:10→19:42)
[2025-04-29] MEDS: ELIQUIS 5 MG PO ×2 (09:10→19:43)
[2025-04-29] MEDS: LIPITOR 10 MG PO (09:10)
[2025-04-29] MEDS: ZOLOFT 100 MG PO (09:10)
[2025-04-29] MEDS: THIAMINE INJECTION 100 MG IV (09:10)
[2025-04-29] MEDS: VITAMIN B-12 1000 MCG PO (09:10)
[2025-04-29] MEDS: SINEMET 25-100 2 TABLET PO ×4 (09:12→19:47)
[2025-04-29] MEDS: DESENEX/MITRAZOL/ZEASORB 1 APPLIC TOPICAL ×2 (09:12→19:48)
--- NOTE | 2025-04-29 11:48 | W.PN.UPDATE ---
Update Note
Progress Note Update
Patient reports he is doing well, presently is calm and not agitated or aggressive.
Yesterday Depakote 250 mg bid was added in an attempt to stabilize his mood swings.
Will order level for tomorrow and will F/U.
--- NOTE | 2025-04-29 13:10 | W.PN.HOSP.TC ---
Today's Communication/Plan
-
Continue current care
Assessment / Plan
Assessment / Plan
Initial Impression:
74 years old male with Parkinson disease presents with cognitive and motor decline.
Other conditions present on admit
Paroxysmal atrial fibrillation.
Anticoagulation with apixaban
Essential hypertension
Dyslipidemia
Mild intermittent asthma
Hospital course and A/Plan by problem
1. Agitation - acute on chronic
74 years old patient with Parkinson's disease status post deep brain stimulator implantation June 2024 presents with cognitive decline including sundowning, visual hallucinations as well as motor decline with worsening of gait, falls, concern for
right lower extremity weakness.
Initial workup with no evidence of infection or metabolic abnormalities. Nontoxic-appearing
Neurologic exam with patient alert awake and negative x 3. Resting tremor mostly pronounced in the left upper extremity with no other focal abnormality. Ataxic shuffling gait.
Imaging with MRI of the brain showed no focal intracranial abnormalities
Neurology has signed off.
Psychiatry following daily
Today's psych note:
'Patient reports he is doing well, presently is calm and not agitated or aggressive.
Yesterday Depakote 250 mg bid was added in an attempt to stabilize his mood swings.
Will order level for tomorrow and will F/U.'
Continue carbidopa levodopa at preadmission dose.
Continue Nuplazid
Originally Seroquel dose reduced to 50 mg at bedtime, although with nighttime agitation increase back to 75 mg daily (preadmission dose 100 g daily)
Continue sertraline and clonazepam. Given periodic agitation required additional doses of lorazepam almost on a daily basis.
PT/OT evaluation
Suspect etiology for cognitive decline and motor dysfunction is progression of his underlying Parkinson's disease.
Needs placement in acute rehab.
2. Paroxysmal atrial fibrillation.
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
Continue thromboembolic prophylaxis with apixaban.
3. Dyslipidemia on atorvastatin
4. Low end of normal range B12 level noted.
Started on oral repletion.
Full code
Dispo -medically stable for discharge to acute rehab. Case management aware.
Anticipated Discharge: 24 - 48 hours
Subjective/Interval History
-
Date of Service: April 29, 2025
Confused, asking for help.
Objective Data
-
Vital Signs:
Vital Signs
Temp Pulse Resp BP Pulse Ox
97.9 F 65 18 128/74 97
04/29/25 07:25 04/29/25 07:25 04/29/25 07:25 04/29/25 07:25 04/29/25 07:25
I&O
04/28/25 04/29/25 04/30/25
06:59 06:59 06:59
Intake Total 840 / 840 240 / 240
Balance 840 / 840 240 / 240
Review of Systems
-
Unable to obtain full review of systems at this time due to: Dementia and Acuity
History Source: Patient
Physical Exam
-
General: Well Developed, Well Nourished, Appears in Distress and Appears Chronically Ill
HEENT: Normocephalic, Atraumatic, Moist Mucous Membranes, Nose Appears Normal and Ears Appear Normal
Musculoskeletal: No Clubbing and No Cyanosis
Skin: Warm and Dry; Negative Rash
Neuro: Awake and Alert; Negative Oriented or AO x 3
Psych: Confused, Agitated and Apparent Dementia; Negative Intact Judgement/Insight
Data Reviewed
-
Labs: Labs Reviewed by me
[2025-04-29 15:35] VITALS: BP 134/78
[2025-04-29] MEDS: VITAMIN D3 (cholecalciferol) 25 MCG PO (17:23)
[2025-04-29] MEDS: KLONOPIN 0.5 MG PO (17:23)
[2025-04-29] MEDS: NON-FORMULARY ITEM 1 MG PO (17:42)
[2025-04-29] MEDS: KLONOPIN 1 MG PO (19:42)
[2025-04-29] MEDS: SEROQUEL 75 MG PO (19:45)
[2025-04-29] MEDS: MELATONIN 10 MG PO (19:45)
[2025-04-29 23:29] VITALS: BP 139/88
--- NOTE | 2025-04-30 06:01 | PTCARENOTE ---
Patient pulled out his right wrist IV site. Gauze was applied. Patient was changed and warm blanket provided.
[2025-04-30 07:21] LABS: Hematocrit 47.6 % (39.0-52.0); Hemoglobin 16.3 g/dL (13.0-18.0); Mean Corp Hgb Conc. 34.2 g/dL (33.0-37.0); Mean Corpuscular Volume 89.8 fL (80.0-94.0); Platelet Count 215 10^3/uL (130-400); Red Cell Dist. Width 12.2 % (11.5-14.5)
[2025-04-30 07:44] LABS: Depakane 21.8 ug/ml (50.0-120.0)
[2025-04-30 07:47] LABS: Blood Urea Nitrogen 21 mg/dl (9-20); Calcium 9.2 mg/dl (8.4-10.2); Carbon Dioxide 29 mmol/L (22-30); Chloride 102 mmol/L (98-107); Estimated Creatinine Clearance > 125 ml/min; Glucose 102 mg/dl (70-99); Potassium 4.0 mmol/L (3.5-5.1); Sodium 134 mmol/L (135-145); eGFR > 60.00
[2025-04-30 08:25] VITALS: BP 177/81
[2025-04-30 08:40] VITALS: BP 177/81
[2025-04-30] MEDS: DEPAKOTE ER (24 HR RELEASE) 250 MG PO (08:40)
[2025-04-30] MEDS: ZOLOFT 100 MG PO (08:40)
[2025-04-30] MEDS: LIPITOR 10 MG PO (08:40)
[2025-04-30] MEDS: VITAMIN B-12 1000 MCG PO (08:40)
[2025-04-30] MEDS: ELIQUIS 5 MG PO ×2 (08:40→19:57)
[2025-04-30] MEDS: DESENEX/MITRAZOL/ZEASORB 1 APPLIC TOPICAL ×2 (08:41→19:58)
[2025-04-30] MEDS: SINEMET 25-100 2 TABLET PO ×4 (08:44→20:00)
--- NOTE | 2025-04-30 11:32 | W.PN.HOSP.TC ---
Today's Communication/Plan
-
Psych recs
cont seroquel/klonopin/depakote
may need increase dose of ?Klonopin prn
Assessment / Plan
Assessment / Plan
Initial Impression:
74 years old male with Parkinson disease presents with cognitive and motor decline.
Parkinson Disease with progression
Other conditions present on admit
Paroxysmal atrial fibrillation.
Anticoagulation with apixaban
Essential hypertension
Dyslipidemia
Mild intermittent asthma
Hospital course and A/Plan by problem
74 years old patient with Parkinson's disease status post deep brain stimulator implantation June 2024 presents with cognitive decline including sundowning, visual hallucinations as well as motor decline with worsening of gait, falls, concern for
right lower extremity weakness.
Initial workup with no evidence of infection or metabolic abnormalities
Nontoxic-appearing
Neurologic exam with patient alert awake and negative x 3. Resting tremor mostly pronounced in the left upper extremity with no other focal abnormality. Ataxic shuffling gait.
Imaging with MRI of the brain showed no focal intracranial abnormalities
Neurology has signed off.
Continue carbidopa levodopa at preadmission dose.
Continue Nuplazid - non-formulary. Pt own medication
Originally Seroquel dose reduced to 50 mg at bedtime, although with nighttime agitation increase back to 75 mg daily (preadmission dose 100 g daily)
Continue sertraline and clonazepam. Given periodic agitation required additional doses of lorazepam almost on a daily basis.
PT/OT evaluation
Physiatry evaluation with consideration of acute rehab
Suspect etiology for cognitive decline and motor dysfunction is progression of his underlying Parkinson's disease.
Psych-started on Depakote 250mg BID.
May need additional medications meds adjustment based on his continuous agitated behavior
Paroxysmal atrial fibrillation.
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
Continue thromboembolic prophylaxis with apixaban.
Dyslipidemia on atorvastatin
Low end of normal range B12 level noted. Started on oral repletion.
Full code
Dispo -eventualyl discharge to Acute rehab.
Anticipated Discharge: > 48 hours
Subjective/Interval History
-
Date of Service: April 30, 2025
Pt continues to remains confused/agitated.
Objective Data
-
Labs:
Laboratory Results
04/30/25
07:08
WBC 8.9
Hgb 16.3
Hct 47.6
Plt Count 215
Sodium 134 L
Potassium 4.0
Chloride 102
Carbon Dioxide 29
BUN 21 H
Creatinine 0.6 L
Glucose 102 H
Calcium 9.2
Vital Signs:
Vital Signs
Temp Pulse Resp BP Pulse Ox
98.3 F 69 18 177/81 97
04/30/25 08:25 04/30/25 08:25 04/30/25 08:25 04/30/25 08:25 04/30/25 08:25
I&O
04/29/25 04/30/25 05/01/25
06:59 06:59 06:59
Intake Total 240 / 240 720 / 720
Output Total 350 / 350
Balance 240 / 240 370 / 370
Physical Exam
-
General: Well Developed, Well Nourished, No Apparent Distress and Comfortable
Respiratory: Non Labored Respirations
Neuro: Awake
Psych: Agitated (refused examination) and Apparent Dementia
--- NOTE | 2025-04-30 13:04 | W.PN.UPDATE ---
Update Note
Progress Note Update
Patient this morning states he does not feel well but is very non specific. He is calm , tremulous but not agitated.
However his nurse told me he has been intermittently agitated and often uncooperative; he also pulled out his iv line.
Depakote level is low at 21.8, will increase to 500 bid to see if we can achieve a therapeutic level.
Will continue F/U.
[2025-04-30 15:37] VITALS: BP 108/65
[2025-04-30] MEDS: VITAMIN D3 (cholecalciferol) 25 MCG PO (15:52)
[2025-04-30] MEDS: NON-FORMULARY ITEM 1 MG PO (15:52)
[2025-04-30] MEDS: KLONOPIN 0.5 MG PO (18:14)
[2025-04-30] MEDS: TYLENOL 650 MG PO (18:14)
[2025-04-30] MEDS: DEPAKOTE ER (24 HR RELEASE) 500 MG PO (19:57)
[2025-04-30] MEDS: KLONOPIN 1 MG PO (19:57)
[2025-04-30] MEDS: SEROQUEL 75 MG PO (21:11)
[2025-04-30] MEDS: MELATONIN 10 MG PO (21:11)
[2025-04-30 23:42] VITALS: BP 102/53
--- NOTE | 2025-05-01 01:48 | PTCARENOTE ---
Patient agitated, uncooperative and combative while attempting to have patient take medications. Initially medication placed in apple sauce as done previously. Patient spit medication out onto his shirt. Called patients . Patient continued to
refuse medication. Patients came in and was able to get him to take his medication... Medications should be crushed in apple sauce in future.
[2025-05-01 07:38] VITALS: BP 121/95
--- NOTE | 2025-05-01 10:18 | CM ---
F/U: VANNESA Rico covering this patient today. Read notes, saw many SNF's have declined the patient, called the , she gave more options, but 3 were [facility] or a [facility]. Found 2 that are willing to consider the patient tomorrow after they
are called and given update on his behavior overnight: [facility] (called [facility]) and [facility] (call [facility] #[phone]). was informed of this plan and expecting a call tomorrow, and Hospitalist is aware. PLAN: [facility].
--- NOTE | 2025-05-01 10:18 | CM ---
Late Note: (04/28) F/U: VANNESA Rico covering this patient today. Read notes, saw many SNF's have declined the patient, called the , she gave more options, but 3 were [facility] or a [facility]isted [facility]. Found 2 that are willing to consider the patient
tomorrow after they are called and given update on his behavior overnight: [facility] (called [facility]) and [facility] (call [facility] #[phone]). was informed of this plan and expecting a call tomorrow, and Hospitalist is aware. PLAN: SNF to
[facility].
[2025-05-01] MEDS: ELIQUIS 5 MG PO ×2 (10:49→20:29)
[2025-05-01] MEDS: ZOLOFT 100 MG PO (10:49)
[2025-05-01] MEDS: DEPAKOTE ER (24 HR RELEASE) 500 MG PO ×2 (10:49→20:29)
[2025-05-01] MEDS: LIPITOR 10 MG PO (10:49)
[2025-05-01] MEDS: VITAMIN B-12 1000 MCG PO (10:49)
[2025-05-01] MEDS: DESENEX/MITRAZOL/ZEASORB 1 APPLIC TOPICAL ×2 (10:52→20:31)
[2025-05-01] MEDS: SINEMET 25-100 2 TABLET PO ×3 (10:53→20:30)
[2025-05-01] MEDS: SINEMET 25-100 PO (10:53)
[2025-05-01 13:00] VITALS: BMI 39.8
[2025-05-01 13:08] VITALS: BP 137/78
--- NOTE | 2025-05-01 14:48 | W.PN.HOSP.TC ---
Today's Communication/Plan
-
Monitor on increased dose of Depakote.
Bladder scan per protocol
Flomax
Assessment / Plan
Assessment / Plan
Initial Impression:
74 years old male with Parkinson disease presents with cognitive and motor decline.
Parkinson Disease with progression
Other conditions present on admit
Paroxysmal atrial fibrillation.
Anticoagulation with apixaban
Essential hypertension
Dyslipidemia
Mild intermittent asthma
Hospital course and A/Plan by problem
74 years old patient with Parkinson's disease status post deep brain stimulator implantation June 2024 presents with cognitive decline including sundowning, visual hallucinations as well as motor decline with worsening of gait, falls, concern for
right lower extremity weakness.
Initial workup with no evidence of infection or metabolic abnormalities
Nontoxic-appearing
Neurologic exam with patient alert awake and negative x 3. Resting tremor mostly pronounced in the left upper extremity with no other focal abnormality. Ataxic shuffling gait.
Imaging with MRI of the brain showed no focal intracranial abnormalities
Neurology has signed off.
Continue carbidopa levodopa at preadmission dose.
Continue Nuplazid - non-formulary. Pt own medication
Originally Seroquel dose reduced to 50 mg at bedtime, although with nighttime agitation increase back to 75 mg daily (preadmission dose 100 g daily)
Continue sertraline and clonazepam. Given periodic agitation required additional doses of lorazepam almost on a daily basis.
PT/OT evaluation
Physiatry evaluation with consideration of acute rehab
Suspect etiology for cognitive decline and motor dysfunction is progression of his underlying Parkinson's disease.
Psych-started on Depakote. Follow-up level at 21.8. Dose increased to 5 mg twice daily
Monitor mental status. Monitor for sedation.
Paroxysmal atrial fibrillation.
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
Continue thromboembolic prophylaxis with apixaban.
Dyslipidemia on atorvastatin
Low end of normal range B12 level noted. Started on oral repletion.
Acute urinary retention. 05/01 PVR over 500 mL. Start bladder scan per protocol. Start Flomax.
Full code
Dispo -eventualyl discharge to Acute rehab.
Anticipated Discharge: 24 - 48 hours
Subjective/Interval History
-
Date of Service: May 01, 2025
Objective Data
-
Vital Signs:
Vital Signs
Temp Pulse Resp BP Pulse Ox
97.6 F 69 18 121/95 99
05/01/25 07:38 05/01/25 07:38 05/01/25 07:38 05/01/25 07:38 05/01/25 07:38
I&O
04/30/25 05/01/25 05/02/25
06:59 06:59 06:59
Intake Total 720 / 720 600 / 600
Output Total 350 / 350 450 / 450
Balance 370 / 370 600 / 600 -450 / -450
Physical Exam
-
General: Well Developed and No Apparent Distress
HEENT: Normocephalic, Atraumatic and Moist Mucous Membranes
Respiratory: Clear to Auscultation
Cardiac: Regular Rhythm and S1/S2; Negative Murmur, Rub or Gallop
GI: Soft, Nontender, Nondistended and Normal Bowel Sounds; Negative Organomegaly
Rectal: Deferred by Provider
Musculoskeletal: No Clubbing, No Cyanosis and No Edema
Skin: Negative Rash
Neuro: Tremors and Nonfocal/Grossly Intact
--- NOTE | 2025-05-01 15:37 | CM ---
CM reviewed chart- ADC 1-2 days
Discussion with nursing, pt agitated overnight but has been pleasant throughout the day
Majority of SNFs have declined- will need to readdress SNF referrals once behaviors have stabilized
Discharge Disposition- SNF
[2025-05-01] MEDS: FLOMAX 0.4 MG PO (15:42)
[2025-05-01] MEDS: VITAMIN D3 (cholecalciferol) 25 MCG PO (15:42)
[2025-05-01] MEDS: NON-FORMULARY ITEM 34 MG PO (15:42)
[2025-05-01 16:08] VITALS: BP 109/58
[2025-05-01] MEDS: KLONOPIN 0.5 MG PO (17:25)
--- NOTE | 2025-05-01 19:45 | W.PN.UPDATE ---
Update Note
Progress Note Update
pt seen, chart reviewed, met with son. pt sitting up in bed, appears more confused that previously. recognizes me but does not konw what I do here. Less tremulous, but constantly picking at his bed linines. Son confirms that this has been a fairly
precipitous decline over past two weeks, but that he has not been nearly as good cogntively since DBS surgery in June--says tremors are much better but congition not so good. Depkote just increased, will see if it helps more at therapeutic level.
[2025-05-01] MEDS: SEROQUEL 75 MG PO (20:28)
[2025-05-01] MEDS: KLONOPIN 1 MG PO (20:29)
[2025-05-01] MEDS: MELATONIN 10 MG PO (20:29)
[2025-05-01 23:19] VITALS: BP 112/73
[2025-05-02 07:00] VITALS: BP 153/95
[2025-05-02] MEDS: VITAMIN B-12 1000 MCG PO (09:13)
[2025-05-02] MEDS: LIPITOR PO ×2 (09:13→11:13)
[2025-05-02] MEDS: FLOMAX PO ×2 (09:13→11:13)
[2025-05-02] MEDS: ELIQUIS 5 MG PO ×2 (09:13→20:35)
[2025-05-02] MEDS: ZOLOFT 100 MG PO (09:14)
[2025-05-02] MEDS: DEPAKOTE ER (24 HR RELEASE) 500 MG PO ×2 (09:14→20:36)
[2025-05-02] MEDS: SINEMET 25-100 PO ×2 (09:15→11:03)
[2025-05-02] MEDS: DESENEX/MITRAZOL/ZEASORB 1 APPLIC TOPICAL ×2 (09:42→22:42)
--- NOTE | 2025-05-02 09:46 | CM ---
Addendum entered by Kimi Mendoza 05/02/25 09:54:
Of note, pt and spouse have four children, all involved in care
Twins/Carrillo and Tobin Oconnell and dtr/Kalli Reardon [phone]
Per spouse request, dtr added as contact to chart
Original Note:
CM spoke with spouse to discuss dc planning
She is aware difficulties with securing SNF placement due to behaviors
Discussed LTC planning and associated costs
Spouse noted limited financial means but open to speaking with [facility] to discuss costs for memory care
Additional SN[facility] referrals to [facility] for [facility] dementia units
[facility] discussed with spouse- she is requesting info regarding hospice
Referral made to Hospice along with [facility]
Discharge Disposition- TBD, possible hospice memory care vs SNF with hospice, may need MA
--- NOTE | 2025-05-02 09:57 | HOSPNOTE ---
Hospice referral received and called spouse and had to leave a message. More information to follow.
[2025-05-02] MEDS: SINEMET 25-100 2 TABLET PO ×3 (11:04→20:50)
[2025-05-02 13:00] VITALS: BMI 39.8
--- NOTE | 2025-05-02 13:23 | W.PN.HOSP.TC ---
Today's Communication/Plan
-
Continue Depakote
Hospice evaluation
Monitor for urinary retention
Assessment / Plan
Assessment / Plan
Initial Impression:
74 years old male with Parkinson disease presents with cognitive and motor decline.
Parkinson Disease with progression
Other conditions present on admit
Paroxysmal atrial fibrillation.
Anticoagulation with apixaban
Essential hypertension
Dyslipidemia
Mild intermittent asthma
Hospital course and A/Plan by problem
74 years old patient with Parkinson's disease status post deep brain stimulator implantation June 2024 presents with cognitive decline including sundowning, visual hallucinations as well as motor decline with worsening of gait, falls, concern for
right lower extremity weakness.
Initial workup with no evidence of infection or metabolic abnormalities
Nontoxic-appearing
Neurologic exam with patient alert awake and negative x 3. Resting tremor mostly pronounced in the left upper extremity with no other focal abnormality. Ataxic shuffling gait.
Imaging with MRI of the brain showed no focal intracranial abnormalities
Neurology has signed off.
Continue carbidopa levodopa at preadmission dose.
Continue Nuplazid - non-formulary. Pt own medication
Originally Seroquel dose reduced to 50 mg at bedtime, although with nighttime agitation increase back to 75 mg daily (preadmission dose 100 g daily)
Continue sertraline and clonazepam. Given periodic agitation required additional doses of lorazepam almost on a daily basis.
Suspect etiology for cognitive decline and motor dysfunction is progression of his underlying Parkinson's disease.
Initiated on Depakote with now increased dose to 500 mg twice daily pending repeated level
Monitor mental status. Monitor for sedation.
Family understands progressive disease and inquiring for hospice evaluation.
Goals of care discussion noted. Requested an updated CODE STATUS DNR
Paroxysmal atrial fibrillation.
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
Continue thromboembolic prophylaxis with apixaban.
Dyslipidemia on atorvastatin
Low end of normal range B12 level noted. Started on oral repletion.
Acute urinary retention. 05/01 PVR over 500 mL. Start bladder scan per protocol. Initiated on Flomax as of 05/01
DNR
Hospice evaluation
Anticipated Discharge: 24 - 48 hours
Subjective/Interval History
-
Date of Service: May 02, 2025
Objective Data
-
Vital Signs:
Vital Signs
Temp Pulse Resp BP Pulse Ox
97.9 F 73 18 153/95 97
05/02/25 07:00 05/02/25 07:00 05/02/25 07:00 05/02/25 07:00 05/02/25 07:00
I&O
05/01/25 05/02/25 05/03/25
06:59 06:59 06:59
Intake Total 600 / 600
Output Total 450 / 450
Balance 600 / 600 -450 / -450
Physical Exam
-
General: Well Developed and No Apparent Distress
HEENT: Normocephalic, Atraumatic and Moist Mucous Membranes
Respiratory: Clear to Auscultation
Cardiac: Regular Rhythm and S1/S2; Negative Murmur, Rub or Gallop
GI: Soft, Nontender, Nondistended and Normal Bowel Sounds; Negative Organomegaly
Rectal: Deferred by Provider
Musculoskeletal: No Clubbing, No Cyanosis and No Edema
Skin: Negative Rash
Neuro: Awake, Alert, Oriented (Disoriented), Tremors and Nonfocal/Grossly Intact
[2025-05-02] MEDS: NON-FORMULARY ITEM 34 MG PO (15:00)
[2025-05-02] MEDS: VITAMIN D3 (cholecalciferol) 25 MCG PO (15:00)
[2025-05-02 15:27] VITALS: BP 112/69
--- NOTE | 2025-05-02 19:24 | HOSPNOTE ---
Hospice referral received and will meet with family tomorrow 05/03 at 10am to discuss hospice and goals or care. More information to follow.
[2025-05-02] MEDS: MELATONIN 10 MG PO (20:36)
[2025-05-02] MEDS: SEROQUEL 75 MG PO (20:36)
--- NOTE | 2025-05-02 21:58 | W.PN.UPDATE ---
Update Note
Progress Note Update
pt seen for assessment. Sitting in bed with gowns askew. Seems to remember meeting me but has no idea who I am or where we are. Tells me he has 10 children (it was 9 yesterday.) Cannot remember what son Carrillo does. Believes he is 57. No complaints
of pain. Does not remember who I am or where he is 5 minutes after I told him. Behaviorally in control most of the time.
[2025-05-02 23:09] VITALS: BP 122/86
[2025-05-03 07:00] VITALS: BP 142/74
[2025-05-03] MEDS: VITAMIN B-12 1000 MCG PO (09:30)
[2025-05-03] MEDS: DEPAKOTE ER (24 HR RELEASE) 500 MG PO ×2 (09:31→20:44)
[2025-05-03] MEDS: LIPITOR 10 MG PO (09:31)
[2025-05-03] MEDS: ELIQUIS 5 MG PO ×2 (09:31→20:45)
[2025-05-03] MEDS: ZOLOFT 100 MG PO (09:31)
[2025-05-03] MEDS: FLOMAX 0.4 MG PO (09:31)
[2025-05-03] MEDS: SINEMET 25-100 2 TABLET PO ×4 (09:32→20:45)
[2025-05-03] MEDS: DESENEX/MITRAZOL/ZEASORB 1 APPLIC TOPICAL ×2 (09:34→20:49)
--- NOTE | 2025-05-03 12:15 | CM ---
CM met with spouse, sons, and dtr with managed care liaison
Per spouse, memory care facilities not affordable
At this time, family is requesting SNF placement, hospice decision still pending
[facility] bed- discussion with SNF liaison
Family will tour [facility] today
Discussion with nursing, behaviors better overnight and throughout day
Family requested referral to [facility]
Discussion with liaison, no LTC beds available and SNF will not consider LTC MA pending with hospice due to payment issues
Call with [facility] liaison/Michael, she will reconsider referral, updated clinicals sent, next open bed available next week
Update to spouse on SNF discussions, they will plan to tour [facility] today as well
Discharge Disposition- SNF, awaiting hospice determination
--- NOTE | 2025-05-03 12:16 | HOSPNOTE ---
Spoke with family about hospice and the philosophy. The patient will need placement and working with CM. Once placement is secured we can admit onto hospice services. I will follow up on Thursday. More information to follow.
--- NOTE | 2025-05-03 12:31 | W.PN.UPDATE ---
Update Note
Progress Note Update
patient seen chart reviewed. spoke with dr enriquez, dr hodgson and nursing. the patient has parkinson's and his condition according to the chart seems to have deteriorated over the past several months despite implantation of a brain stimulator. he
has had some periods of agitation but when i saw him this am he was calm and pleasant although very confused. he attempted to answer my questions (how many children do you have? 'one son two sons three sons four sons five sons and five daughters'
he told me it was 195. he did know he was in a hospital but could not tell me which. i am told by dr enriquez that family is meeting with hospice. he did not appear to be hallucinating. he is maintained on nuplazid zoloft depakote klonopin prn
and standing and seroquel q hs. psych meds were not changed. pending depakote level.
[2025-05-03 13:00] VITALS: BMI 39.8
[2025-05-03 13:23] LABS: Depakane 35.6 ug/ml (50.0-120.0)
[2025-05-03 13:54] LABS: Blood Urea Nitrogen 21 mg/dl (9-20); Calcium 8.9 mg/dl (8.4-10.2); Carbon Dioxide 31 mmol/L (22-30); Chloride 99 mmol/L (98-107); Estimated Creatinine Clearance 111 ml/min; Glucose 116 mg/dl (70-99); Potassium 3.8 mmol/L (3.5-5.1); Sodium 135 mmol/L (135-145); eGFR > 60.00
--- NOTE | 2025-05-03 14:20 | W.PN.HOSP.TC ---
Addendum entered and electronically signed by Nestor Patricio MD 05/03/25 16:44:
Obesity with BMI of 41
Original Note:
Today's Communication/Plan
-
Goals of care discussion along with hospice evaluation today.
Consideration of placement with LTC and possibly transition to comfort care hospice at the facility.
Continue current neurologic regimen with addition of Depakote.
Assessment / Plan
Assessment / Plan
Initial Impression:
74 years old male with Parkinson disease presents with cognitive and motor decline.
Parkinson Disease with progression
Other conditions present on admit
Paroxysmal atrial fibrillation.
Anticoagulation with apixaban
Essential hypertension
Dyslipidemia
Mild intermittent asthma
Hospital course and A/Plan by problem
74 years old patient with Parkinson's disease status post deep brain stimulator implantation June 2024 presents with cognitive decline including sundowning, visual hallucinations as well as motor decline with worsening of gait, falls, concern for
right lower extremity weakness.
Persistent delirium
Initial workup with no evidence of infection or metabolic abnormalities
Nontoxic-appearing
Neurologic exam with patient alert awake and negative x 3. Resting tremor mostly pronounced in the left upper extremity with no other focal abnormality. Ataxic shuffling gait.
Imaging with MRI of the brain showed no focal intracranial abnormalities
Neurology has signed off.
Continue carbidopa levodopa at preadmission dose.
Continue Nuplazid - non-formulary. Pt own medication
Originally Seroquel dose reduced to 50 mg at bedtime, although with nighttime agitation increase back to 75 mg daily (preadmission dose 100 g daily)
Continue sertraline and clonazepam. Given periodic agitation required additional doses of lorazepam almost on a daily basis.
Suspect etiology for cognitive decline and motor dysfunction is progression of his underlying Parkinson's disease.
Initiated on Depakote with now increased dose to 500 mg twice daily pending repeated level
Monitor mental status. Monitor for sedation.
Family understands progressive disease and inquiring for hospice evaluation.
Goals of care discussion noted. Requested an updated CODE STATUS DNR
Paroxysmal atrial fibrillation.
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
Continue thromboembolic prophylaxis with apixaban.
Dyslipidemia on atorvastatin
Low end of normal range B12 level noted. Started on oral repletion.
Acute urinary retention. 05/01 PVR over 500 mL. Start bladder scan per protocol. Initiated on Flomax as of 05/01
DNR
Hospice evaluation
Anticipated Discharge: > 48 hours
Subjective/Interval History
-
Date of Service: May 03, 2025
Objective Data
-
Labs:
Laboratory Results
05/03/25
12:54
Sodium 135
Potassium 3.8
Chloride 99
Carbon Dioxide 31 H
BUN 21 H
Creatinine 0.7
Glucose 116 H
Calcium 8.9
Vital Signs:
Vital Signs
Temp Pulse Resp BP Pulse Ox
98 F 86 20 142/74 96
05/03/25 07:00 05/03/25 07:00 05/03/25 07:00 05/03/25 07:00 05/03/25 07:00
I&O
05/02/25 05/03/25 05/04/25
06:59 06:59 06:59
Intake Total 900 / 900
Output Total 450 / 450
Balance -450 / -450 900 / 900
Physical Exam
-
General: Well Developed and No Apparent Distress
HEENT: Normocephalic, Atraumatic and Moist Mucous Membranes
Respiratory: Clear to Auscultation
Cardiac: Regular Rhythm and S1/S2; Negative Murmur, Rub or Gallop
GI: Soft, Nontender, Nondistended and Normal Bowel Sounds; Negative Organomegaly
Rectal: Deferred by Provider
Musculoskeletal: No Clubbing, No Cyanosis and No Edema
Skin: Negative Rash
Neuro: Awake, Tremors, Nonfocal/Grossly Intact and Other (Disoriented. )
[2025-05-03 15:00] VITALS: BP 143/73
[2025-05-03 15:13] VITALS: BMI 39.8
[2025-05-03] MEDS: VITAMIN D3 (cholecalciferol) 25 MCG PO (15:30)
[2025-05-03] MEDS: NON-FORMULARY ITEM 34 MG PO (15:30)
[2025-05-03] MEDS: MELATONIN 10 MG PO (20:44)
[2025-05-03] MEDS: SEROQUEL 75 MG PO (20:45)
[2025-05-03 23:21] VITALS: BP 103/65
[2025-05-04] MEDS: TYLENOL 650 MG PO (03:05)
[2025-05-04 07:00] VITALS: BP 119/66
[2025-05-04] MEDS: VITAMIN B-12 1000 MCG PO (08:25)
[2025-05-04] MEDS: FLOMAX 0.4 MG PO (08:25)
[2025-05-04] MEDS: LIPITOR 10 MG PO (08:25)
[2025-05-04] MEDS: ELIQUIS 5 MG PO ×2 (08:25→20:33)
[2025-05-04] MEDS: DEPAKOTE ER (24 HR RELEASE) 500 MG PO (08:25)
[2025-05-04] MEDS: ZOLOFT 100 MG PO (08:25)
[2025-05-04] MEDS: SINEMET 25-100 2 TABLET PO ×3 (08:26→20:53)
[2025-05-04] MEDS: DESENEX/MITRAZOL/ZEASORB 1 APPLIC TOPICAL ×2 (08:27→20:34)
--- NOTE | 2025-05-04 10:14 | HOSPNOTE ---
Hospice continues to follow. Family was touring facilities yesterday. Reached out to CM to see if family made a choice on facility. More information to follow.
--- NOTE | 2025-05-04 12:38 | W.PN.HOSP.TC ---
Addendum entered and electronically signed by Ramon Gibbons DO 05/04/25 14:41:
Updated patient's on the phone. All questions answered.
Original Note:
Today's Communication/Plan
-
Discharge planning
Assessment / Plan
Assessment / Plan
Initial Impression:
74 years old male with Parkinson disease presents with cognitive and motor decline.
Parkinson Disease with progression
Other conditions present on admit
Paroxysmal atrial fibrillation.
Anticoagulation with apixaban
Essential hypertension
Dyslipidemia
Mild intermittent asthma
Hospital course and A/Plan by problem
74 years old patient with Parkinson's disease status post deep brain stimulator implantation June 2024 presents with cognitive decline including sundowning, visual hallucinations as well as motor decline with worsening of gait, falls, concern for
right lower extremity weakness.
Persistent delirium
Initial workup with no evidence of infection or metabolic abnormalities
Nontoxic-appearing
Neurologic exam with patient alert awake and negative x 3. Resting tremor mostly pronounced in the left upper extremity with no other focal abnormality. Ataxic shuffling gait.
Imaging with MRI of the brain showed no focal intracranial abnormalities
Neurology has signed off.
Continue carbidopa levodopa at preadmission dose.
Continue Nuplazid - non-formulary. Pt own medication
Originally Seroquel dose reduced to 50 mg at bedtime, although with nighttime agitation increase back to 75 mg daily (preadmission dose 100 g daily)
Continue sertraline and clonazepam. Given periodic agitation required additional doses of lorazepam almost on a daily basis.
Suspect etiology for cognitive decline and motor dysfunction is progression of his underlying Parkinson's disease.
Initiated on Depakote with now increased dose to 500 mg twice daily pending repeated level
Monitor mental status. Monitor for sedation.
Family understands progressive disease and inquiring for hospice evaluation.
Goals of care discussion noted. Requested an updated CODE STATUS DNR
Paroxysmal atrial fibrillation.
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
Continue thromboembolic prophylaxis with apixaban.
Dyslipidemia on atorvastatin
Low end of normal range B12 level noted. Started on oral repletion.
Acute urinary retention. 05/01 PVR over 500 mL. Start bladder scan per protocol. Initiated on Flomax as of 05/01
Mild fever last night, afebrile this morning. Given plans for hospice I would not workup further.
DNR
Hospice evaluation -seen by hospice team and awaiting SNF placement with transition to hospice. Medically stable for discharge.
Anticipated Discharge: Within 24 hours
Subjective/Interval History
-
Date of Service: May 04, 2025
Patient seen and examined, sleeping, looks comfortable.
Objective Data
-
Vital Signs:
Vital Signs
Temp Pulse Resp BP Pulse Ox
97.7 F 74 18 119/66 97
05/04/25 07:00 05/04/25 07:00 05/04/25 07:00 05/04/25 07:00 05/04/25 07:00
I&O
05/03/25 05/04/25 05/05/25
06:59 06:59 06:59
Intake Total 900 / 900 840 / 840
Balance 900 / 900 840 / 840
Review of Systems
-
Unable to obtain full review of systems at this time due to: Dementia and Acuity
[2025-05-04 13:00] VITALS: BMI 39.8
[2025-05-04 15:00] VITALS: BP 128/63
[2025-05-04] MEDS: SINEMET 25-100 PO (15:13)
[2025-05-04] MEDS: VITAMIN D3 (cholecalciferol) 25 MCG PO (16:14)
[2025-05-04] MEDS: NON-FORMULARY ITEM 34 MG PO (16:15)
[2025-05-04] MEDS: DEPAKOTE ER (24 HR RELEASE) PO ×2 (20:33→20:49)
[2025-05-04] MEDS: MELATONIN 10 MG PO (21:48)
[2025-05-04] MEDS: SEROQUEL 75 MG PO (21:48)
[2025-05-04] MEDS: DEPAKOTE SPRINKLE 500 MG PO (21:49)
[2025-05-04 23:22] VITALS: BP 108/57
[2025-05-05 07:00] VITALS: BP 107/69
[2025-05-05] MEDS: VITAMIN B-12 1000 MCG PO (09:38)
[2025-05-05] MEDS: LIPITOR 10 MG PO (09:39)
[2025-05-05] MEDS: FLOMAX 0.4 MG PO (09:40)
[2025-05-05] MEDS: ZOLOFT 100 MG PO (09:40)
[2025-05-05] MEDS: ELIQUIS 5 MG PO ×2 (09:40→19:46)
[2025-05-05] MEDS: DEPAKOTE SPRINKLE 500 MG PO ×2 (09:40→19:46)
[2025-05-05] MEDS: DESENEX/MITRAZOL/ZEASORB 1 APPLIC TOPICAL ×2 (09:41→19:49)
[2025-05-05] MEDS: SINEMET 25-100 2 TABLET PO ×3 (09:44→19:48)
--- NOTE | 2025-05-05 10:20 | CM ---
Addendum entered by Luci Lombardo 05/05/25 14:11:
Received a call from Peggy [phone] at [facility] asking if family had made a decision, ifnormed her they are considering taking him home, CM will update with any change in plans.
Addendum entered by Luci Lombardo 05/05/25 11:35:
Discussed with [facility] Retail Shift Supervisor, Radha. Awaiting family decision about home vs facility. Attempted to reach admissions at [facility] but they are still off for the holiday.
Original Note:
Met with at bedside. She is now considering home hospice, said she needs to meet with her children this weekend to discuss.
She would like to use [facility], referral sent.
Family toured [facility] but did not like it, said they are considering [facility] but they do not have a bed in the dementia unit.
Pt is resting comfortably.
Discussed with that pt is ready for discharge and we will need a decision about discharge plan sooner than Thursday.
Gave her a list a private pay caregiver agencies in the area.
CM will continue to follow.
--- NOTE | 2025-05-05 10:56 | W.PN.UPDATE ---
Update Note
Progress Note Update
Pt seen, reviewed with nursing staff. Pt calm, more sleepy the past couple of days. at the bedside states she is considering bringing pt home for Hospice care, has one son living with them and other children for support. Pt asleep/drowsy,
has mild degree of resting tremor at present. reports Depakote appears to be helping; dose form was changed to sprinkles.
Imp: Lewy body dementia, progressive, with agitation, calmer on Depakote. Progressive Parkinson's Dz, plan is for Hospice care.
Rec: Continue current psychiatric medications. Consider rechecking Depakote level, although it is okay to be below the reference range if it continues to be clinically effective.
Will follow loosely.
--- NOTE | 2025-05-05 11:35 | W.PN.HOSP.TC ---
Today's Communication/Plan
-
Discharge planning
Assessment / Plan
Assessment / Plan
Gen-sedated
HEENT-NC, AT, anicteric, clear oral mm
Neck-supple
CV-reg, no M, +S1/S2
Lungs-clear B/L
Abd-soft, NT, ND
Ext-no edema
Musculoskeletal-no cyanosis, clubbing
Skin-warm and dry
Initial Impression:
74 years old male with Parkinson disease presents with cognitive and motor decline.
Parkinson Disease with progression
Other conditions present on admit
Paroxysmal atrial fibrillation.
Anticoagulation with apixaban
Essential hypertension
Dyslipidemia
Mild intermittent asthma
Hospital course and A/Plan by problem
74 years old patient with Parkinson's disease status post deep brain stimulator implantation June 2024 presents with cognitive decline including sundowning, visual hallucinations as well as motor decline with worsening of gait, falls, concern for
right lower extremity weakness.
Persistent delirium
Initial workup with no evidence of infection or metabolic abnormalities
Nontoxic-appearing
Neurologic exam with patient alert awake and negative x 3. Resting tremor mostly pronounced in the left upper extremity with no other focal abnormality. Ataxic shuffling gait.
Imaging with MRI of the brain showed no focal intracranial abnormalities
Neurology has signed off.
Continue carbidopa levodopa at preadmission dose.
Continue Nuplazid - non-formulary. Pt own medication
Originally Seroquel dose reduced to 50 mg at bedtime, although with nighttime agitation increase back to 75 mg daily (preadmission dose 100 g daily)
Continue sertraline and clonazepam. Given periodic agitation required additional doses of lorazepam almost on a daily basis.
Suspect etiology for cognitive decline and motor dysfunction is progression of his underlying Parkinson's disease.
Initiated on Depakote with now increased dose to 500 mg twice daily pending repeated level
Monitor mental status. Monitor for sedation.
Family understands progressive disease and inquiring for hospice evaluation.
Goals of care discussion noted. Requested an updated CODE STATUS DNR
Paroxysmal atrial fibrillation.
Not on rate control medications TRY ON BASTER.
Continue thromboembolic prophylaxis with apixaban.
Dyslipidemia on atorvastatin
Low end of normal range B12 level noted. Started on oral repletion.
Acute urinary retention. 05/01 PVR over 500 mL. Start bladder scan per protocol. Initiated on Flomax as of 05/01
Mild fever last night, afebrile this morning. Given plans for hospice I would not workup further.
DNR
Hospice evaluation -seen by hospice team and awaiting SNF placement with transition to hospice. Medically stable for discharge.
I had a long discussion with patient's at the bedside regarding discharge plans. I recommend discharge on hospice. She remains undecided and wants to speak further with other family members. She is leaning towards taking him home on hospice.
She thinks she needs until the middle of next week to make a decision. I urged her to make a decision sooner as he is already been in the hospital for 2 weeks and at this point remains stable for discharge. Case management updated.
I also spoke with the patient's regarding reducing his medication burden as I would recommend discontinuing anticoagulation and other medications that are unnecessary at this point in time and not improving his quality of life. She wants to
speak with the patient's paper machine back tender before making any decisions.
Anticipated Discharge: 24 - 48 hours
Subjective/Interval History
-
Date of Service: May 05, 2025
Patient seen and examined, sedated and not arousable. Moans when touched.
Objective Data
-
Vital Signs:
Vital Signs
Temp Pulse Resp BP Pulse Ox
97.7 F 72 20 107/69 94
05/05/25 07:00 05/05/25 07:00 05/05/25 07:00 05/05/25 07:00 05/05/25 07:00
I&O
05/04/25 05/05/25 05/06/25
06:59 06:59 06:59
Intake Total 840 / 840 720 / 720
Balance 840 / 840 720 / 720
Review of Systems
-
History Source: Patient
All other systems: Reviewed and negative
--- NOTE | 2025-05-05 12:16 | HOSPNOTE ---
Family is now considering home hospice with [facility], apparently they used them in the past. They would also like to consider [facility] but unable to reach office, family aware that a decision needs to be made. Will continue to follow until patient
is discharged.
[2025-05-05 13:00] VITALS: BMI 39.8
[2025-05-05] MEDS: SINEMET 25-100 PO ×2 (13:27→13:36)
[2025-05-05] MEDS: NON-FORMULARY ITEM 34 MG PO (16:04)
[2025-05-05 16:20] VITALS: BP 115/65
[2025-05-05] MEDS: VITAMIN D3 (cholecalciferol) 25 MCG PO (17:05)
[2025-05-05] MEDS: SEROQUEL 75 MG PO (21:38)
[2025-05-05] MEDS: MELATONIN 10 MG PO (21:38)
[2025-05-05 23:11] VITALS: BP 116/73
[2025-05-06 07:00] VITALS: BP 123/74
[2025-05-06] MEDS: SINEMET 25-100 PO ×3 (09:05→13:36)
[2025-05-06] MEDS: VITAMIN B-12 PO ×2 (09:06→09:15)
[2025-05-06] MEDS: DEPAKOTE SPRINKLE PO ×2 (09:06→09:15)
[2025-05-06] MEDS: ZOLOFT PO ×2 (09:06→10:52)
[2025-05-06] MEDS: ELIQUIS PO ×2 (09:07→09:15)
[2025-05-06] MEDS: FLOMAX PO ×2 (09:07→09:15)
[2025-05-06] MEDS: DESENEX/MITRAZOL/ZEASORB 1 APPLIC TOPICAL ×2 (09:07→20:17)
[2025-05-06] MEDS: LIPITOR PO ×2 (09:07→09:15)
--- NOTE | 2025-05-06 09:30 | PTCARENOTE ---
Patient refused his am medications, attempted to administer but patient spit out medications . Physician notified and aware. Plan of care ongoing.
--- NOTE | 2025-05-06 11:41 | W.PN.HOSP.TC ---
Today's Communication/Plan
-
Continue current care
Assessment / Plan
Assessment / Plan
Gen-awake but not fully alert, NAD
HEENT-NC, AT, anicteric, clear oral mm
Neck-supple
CV-reg, no M, +S1/S2
Lungs-clear B/L
Abd-soft, NT, ND
Ext-no edema
Musculoskeletal-no cyanosis, clubbing
Skin-warm and dry
Initial Impression:
74 years old male with Parkinson disease presents with cognitive and motor decline.
Parkinson Disease with progression
Other conditions present on admit
Paroxysmal atrial fibrillation.
Anticoagulation with apixaban
Essential hypertension
Dyslipidemia
Mild intermittent asthma
Hospital course and A/Plan by problem
74 years old patient with Parkinson's disease status post deep brain stimulator implantation June 2024 presents with cognitive decline including sundowning, visual hallucinations as well as motor decline with worsening of gait, falls, concern for
right lower extremity weakness.
Persistent delirium
Initial workup with no evidence of infection or metabolic abnormalities
Nontoxic-appearing
Neurologic exam with patient alert awake and negative x 3. Resting tremor mostly pronounced in the left upper extremity with no other focal abnormality. Ataxic shuffling gait.
Imaging with MRI of the brain showed no focal intracranial abnormalities
Neurology has signed off.
Continue carbidopa levodopa at preadmission dose.
Continue Nuplazid - non-formulary. Pt own medication
Originally Seroquel dose reduced to 50 mg at bedtime, although with nighttime agitation increase back to 75 mg daily (preadmission dose 100 g daily)
Continue sertraline and clonazepam. Given periodic agitation required additional doses of lorazepam almost on a daily basis.
Suspect etiology for cognitive decline and motor dysfunction is progression of his underlying Parkinson's disease.
Initiated on Depakote with now increased dose to 500 mg twice daily pending repeated level
Monitor mental status. Monitor for sedation.
Family understands progressive disease and inquiring for hospice evaluation.
Goals of care discussion noted. Requested an updated CODE STATUS DNR
Paroxysmal atrial fibrillation.
Not on rate control medications CLINICAL WRITER.
Continue thromboembolic prophylaxis with apixaban.
Dyslipidemia on atorvastatin
Low end of normal range B12 level noted. Started on oral repletion.
Acute urinary retention. 05/01 PVR over 500 mL. Start bladder scan per protocol. Initiated on Flomax as of 05/01
Isolated fever 05/04 -no signs or symptoms of sepsis. Given plans for hospice I would not workup further. Fever could be related to aspiration versus other etiology.
DNR
Hospice evaluation -seen by hospice team and awaiting SNF placement with transition to hospice. Medically stable for discharge.
I had a long discussion with patient's at the bedside on 05/05 regarding discharge plans. I recommend discharge on hospice. She remains undecided and wants to speak further with other family members. She is leaning towards taking him home on
hospice. She thinks she needs until the middle of next week to make a decision. I urged her to make a decision sooner as he is already been in the hospital for 2 weeks and at this point remains stable for discharge. Case management updated.
I also spoke with the patient's regarding reducing his medication burden as I would recommend discontinuing anticoagulation and other medications that are unnecessary at this point in time and not improving his quality of life. She wants to
speak with the patient's problem manager before making any decisions.
Anticipated Discharge: 24 - 48 hours
Subjective/Interval History
-
Date of Service: May 06, 2025
Patient seen and examined, no complaints. A little bit more awake today and arousable.
Objective Data
-
Vital Signs:
Vital Signs
Temp Pulse Resp BP Pulse Ox
97.5 F 66 18 123/74 96
05/06/25 07:00 05/06/25 07:00 05/06/25 07:00 05/06/25 07:00 05/06/25 07:00
I&O
05/05/25 05/06/25 05/07/25
06:59 06:59 06:59
Intake Total 720 / 720 120 / 120
Balance 720 / 720 120 / 120
Review of Systems
-
History Source: Patient
All other systems: Reviewed and negative
[2025-05-06 13:00] VITALS: BMI 39.8
[2025-05-06 15:00] VITALS: BP 135/86
[2025-05-06] MEDS: SINEMET 25-100 2 TABLET PO ×2 (16:18→20:36)
[2025-05-06] MEDS: VITAMIN D3 (cholecalciferol) 25 MCG PO (16:19)
[2025-05-06] MEDS: NON-FORMULARY ITEM 34 MG PO (16:19)
[2025-05-06] MEDS: DEPAKOTE SPRINKLE 500 MG PO (20:16)
[2025-05-06] MEDS: ELIQUIS 5 MG PO (20:16)
[2025-05-06] MEDS: MELATONIN 10 MG PO (21:26)
[2025-05-06] MEDS: SEROQUEL 75 MG PO (21:26)
[2025-05-06 23:25] VITALS: BP 121/75
[2025-05-07 05:57] VITALS: BMI 39.5
[2025-05-07 07:00] VITALS: BP 139/91
[2025-05-07] MEDS: LIPITOR 10 MG PO (09:56)
[2025-05-07] MEDS: VITAMIN B-12 1000 MCG PO (09:56)
[2025-05-07] MEDS: ZOLOFT 100 MG PO (09:56)
[2025-05-07] MEDS: DEPAKOTE SPRINKLE 500 MG PO ×2 (09:57→20:36)
[2025-05-07] MEDS: ELIQUIS 5 MG PO ×2 (09:57→20:37)
[2025-05-07] MEDS: FLOMAX 0.4 MG PO (09:58)
[2025-05-07] MEDS: DESENEX/MITRAZOL/ZEASORB 1 APPLIC TOPICAL ×2 (09:58→20:46)
[2025-05-07] MEDS: SINEMET 25-100 2 TABLET PO ×4 (09:59→20:36)
--- NOTE | 2025-05-07 10:33 | W.PN.HOSP.TC ---
Today's Communication/Plan
-
Discharge planning
Assessment / Plan
Assessment / Plan
Gen-awake but not fully alert, NAD, opens eyes
HEENT-NC, AT, anicteric, clear oral mm
Neck-supple
CV-reg, no M, +S1/S2
Lungs-clear B/L
Abd-soft, NT, ND
Ext-no edema
Musculoskeletal-no cyanosis, clubbing
Skin-warm and dry
Initial Impression:
74 years old male with Parkinson disease presents with cognitive and motor decline.
Parkinson Disease with progression
Other conditions present on admit
Paroxysmal atrial fibrillation.
Anticoagulation with apixaban
Essential hypertension
Dyslipidemia
Mild intermittent asthma
Hospital course and A/Plan by problem
74 years old patient with Parkinson's disease status post deep brain stimulator implantation June 2024 presents with cognitive decline including sundowning, visual hallucinations as well as motor decline with worsening of gait, falls, concern for
right lower extremity weakness.
Persistent delirium
Initial workup with no evidence of infection or metabolic abnormalities
Nontoxic-appearing
Neurologic exam with patient alert awake and negative x 3. Resting tremor mostly pronounced in the left upper extremity with no other focal abnormality. Ataxic shuffling gait.
Imaging with MRI of the brain showed no focal intracranial abnormalities
Neurology has signed off.
Continue carbidopa levodopa at preadmission dose.
Continue Nuplazid - non-formulary. Pt own medication
Originally Seroquel dose reduced to 50 mg at bedtime, although with nighttime agitation increase back to 75 mg daily (preadmission dose 100 g daily)
Continue sertraline and clonazepam. Given periodic agitation required additional doses of lorazepam almost on a daily basis.
Suspect etiology for cognitive decline and motor dysfunction is progression of his underlying Parkinson's disease.
Initiated on Depakote with now increased dose to 500 mg twice daily pending repeated level
Monitor mental status. Monitor for sedation.
Family understands progressive disease and inquiring for hospice evaluation.
Goals of care discussion noted. Requested an updated CODE STATUS DNR
Paroxysmal atrial fibrillation.
Not on rate control medications OPTOMETRIC TECHNICIAN.
Continue thromboembolic prophylaxis with apixaban.
Dyslipidemia on atorvastatin
Low end of normal range B12 level noted. Started on oral repletion.
Acute urinary retention. 05/01 PVR over 500 mL. Start bladder scan per protocol. Initiated on Flomax as of 05/01
Isolated fever 05/04 -no signs or symptoms of sepsis. Given plans for hospice I would not workup further. Fever could be related to aspiration versus other etiology.
DNR
Hospice evaluation -seen by hospice team and awaiting SNF placement with transition to hospice. Medically stable for discharge.
I had a long discussion with patient's at the bedside on 05/05 regarding discharge plans. I recommend discharge on hospice. She remains undecided and wants to speak further with other family members. She is leaning towards taking him home on
hospice. She thinks she needs until the middle of next week to make a decision. I urged her to make a decision sooner as he is already been in the hospital for 2 weeks and at this point remains stable for discharge. Case management updated.
I also spoke with the patient's regarding reducing his medication burden as I would recommend discontinuing anticoagulation and other medications that are unnecessary at this point in time and not improving his quality of life. She wants to
speak with the patient's silk soaker before making any decisions.
Anticipated Discharge: Within 24 hours
Subjective/Interval History
-
Date of Service: May 07, 2025
Patient seen and examined, no complaints.
Objective Data
-
Vital Signs:
Vital Signs
Temp Pulse Resp BP Pulse Ox
97 F 76 18 139/91 98
05/07/25 07:00 05/07/25 07:00 05/07/25 07:00 05/07/25 07:00 05/07/25 07:00
I&O
05/06/25 05/07/25 05/08/25
06:59 06:59 06:59
Intake Total 120 / 120 740 / 740
Balance 120 / 120 740 / 740
Review of Systems
-
History Source: Patient
All other systems: Reviewed and negative
--- NOTE | 2025-05-07 10:46 | CM ---
Patient is stable for discharge. Discussed discharge plan (Home Hospice vs. SNF w/ Hospice) w/ via phone. reported that she would identify their home hospice agency preference tomorrow.
Hand Braille Transcriber will follow up with tomorrow and submit home hospice referral
[2025-05-07 13:00] VITALS: BMI 39.5
[2025-05-07 15:00] VITALS: BP 119/72
[2025-05-07] MEDS: NON-FORMULARY ITEM 34 MG PO (16:32)
[2025-05-07] MEDS: VITAMIN D3 (cholecalciferol) 25 MCG PO (16:33)
[2025-05-07] MEDS: SEROQUEL PO (22:03)
[2025-05-07] MEDS: MELATONIN PO (22:03)
[2025-05-07 23:00] VITALS: BP 119/69
[2025-05-08 06:00] VITALS: BMI 39.3
[2025-05-08 08:07] VITALS: BP 136/81
[2025-05-08] MEDS: ELIQUIS 5 MG PO (09:13)
[2025-05-08] MEDS: VITAMIN B-12 1000 MCG PO (09:13)
[2025-05-08] MEDS: DEPAKOTE SPRINKLE 500 MG PO ×2 (09:13→20:07)
[2025-05-08] MEDS: FLOMAX 0.4 MG PO (09:13)
[2025-05-08] MEDS: ZOLOFT 100 MG PO (09:13)
[2025-05-08] MEDS: LIPITOR 10 MG PO (09:13)
[2025-05-08] MEDS: SINEMET 25-100 2 TABLET PO ×4 (09:14→20:56)
[2025-05-08] MEDS: DESENEX/MITRAZOL/ZEASORB 1 APPLIC TOPICAL ×2 (09:19→20:09)
[2025-05-08 13:00] VITALS: BMI 39.3
--- NOTE | 2025-05-08 13:06 | HOSPNOTE ---
Patient is choosing another hospice agency. We will sign off.
--- NOTE | 2025-05-08 14:26 | W.PN.HOSP.TC ---
Today's Communication/Plan
-
Continue current neuropsychiatric regimen
Ongoing goals of care discussion with plan for home hospice transition pending logistics.
Medication burden discussed with patient daughter at the bedside and eventually with patient's . Given increased risk versus benefits in regards to cardiovascular medications particularly anticoagulation, Eliquis had been discontinued.
Assessment / Plan
Assessment / Plan
Initial Impression:
74 years old male with Parkinson disease presents with cognitive and motor decline.
Parkinson Disease with progression
Other conditions present on admit
Paroxysmal atrial fibrillation.
Anticoagulation with apixaban
Essential hypertension
Dyslipidemia
Mild intermittent asthma
Hospital course and A/Plan by problem
74 years old patient with Parkinson's disease status post deep brain stimulator implantation June 2024 presents with cognitive decline including sundowning, visual hallucinations as well as motor decline with worsening of gait, falls, concern for
right lower extremity weakness.
Persistent delirium
Initial workup with no evidence of infection or metabolic abnormalities
Nontoxic-appearing
Neurologic exam with patient alert awake and negative x 3. Resting tremor mostly pronounced in the left upper extremity with no other focal abnormality. Ataxic shuffling gait.
Imaging with MRI of the brain showed no focal intracranial abnormalities
Neurology has signed off.
Continue carbidopa levodopa at preadmission dose.
Continue Nuplazid - non-formulary. Pt own medication
Originally Seroquel dose reduced to 50 mg at bedtime, although with nighttime agitation increase back to 75 mg daily (preadmission dose 100 g daily)
Continue sertraline and clonazepam. Given periodic agitation required additional doses of lorazepam almost on a daily basis.
Suspect etiology for cognitive decline and motor dysfunction is progression of his underlying Parkinson's disease.
Initiated on Depakote with now increased dose to 500 mg twice daily pending repeated level
Monitor mental status. Monitor for sedation.
Family understands progressive disease and inquiring for hospice evaluation.
Goals of care discussion noted. Requested an updated CODE STATUS DNR
Paroxysmal atrial fibrillation.
Not on rate control medications GOLF CADDY.
Anticoagulation with Eliquis initially discontinued with hospice transition
Dyslipidemia on atorvastatin
Low end of normal range B12 level noted. Started on oral repletion.
Acute urinary retention. 05/01 PVR over 500 mL. Start bladder scan per protocol. Initiated on Flomax as of 05/01
Isolated fever 05/04 -no signs or symptoms of sepsis. Given plans for hospice I would not workup further. Fever could be related to aspiration versus other etiology.
DNR
Hospice evaluation -seen by hospice team and awaiting SNF placement with transition to hospice. Medically stable for discharge.
Anticipated Discharge: 24 - 48 hours
Subjective/Interval History
-
Date of Service: May 08, 2025
Objective Data
-
Vital Signs:
Vital Signs
Temp Pulse Resp BP Pulse Ox
98.1 F 80 16 136/81 98
05/08/25 08:07 05/08/25 08:07 05/08/25 08:07 05/08/25 08:07 05/08/25 08:07
I&O
05/07/25 05/08/25 05/09/25
06:59 06:59 06:59
Intake Total 740 / 740 480 / 480
Output Total 150 / 150
Balance 740 / 740 330 / 330
Physical Exam
-
General: Well Developed and No Apparent Distress
HEENT: Normocephalic, Atraumatic and Moist Mucous Membranes
Respiratory: Clear to Auscultation
Cardiac: Regular Rhythm and S1/S2; Negative Murmur, Rub or Gallop
GI: Soft, Nontender, Nondistended and Normal Bowel Sounds; Negative Organomegaly
Rectal: Deferred by Provider
Musculoskeletal: No Clubbing, No Cyanosis and No Edema
Skin: Negative Rash
Neuro: Awake, Tremors, Nonfocal/Grossly Intact and Other (Disoriented. )
--- NOTE | 2025-05-08 14:36 | CM ---
CM spoke with pt's on the phone
She is electing for pt to return home with hospice
She noted [facility] is their provider preference
She also requested 2 physician letters noting pt does not have capacity for his springing POA
Call to [facility] [phone] with referral
Clinicals faxed to [phone]
Discussion with liaison/Janna
DME delivery tomorrow afternoon, pt planned for admission to hospice on Thu morning in the home
Requesting 10am transport on Thu
Discussion with attending, he will provide letter for POA
Update to spouse, she noted pt's outpt neuro will provide second letter
CM to coordinate ambulance transport on Thu at 10am
Discharge Disposition- home on 05/10 with [facility], will need BLS transport scheduled for 1000
Fax- [phone]
[2025-05-08] MEDS: NON-FORMULARY ITEM 34 MG PO (16:13)
[2025-05-08] MEDS: VITAMIN D3 (cholecalciferol) 25 MCG PO (16:13)
[2025-05-08 16:15] VITALS: BP 136/75
[2025-05-08] MEDS: SEROQUEL 75 MG PO (21:00)
[2025-05-08] MEDS: MELATONIN 10 MG PO (21:00)
[2025-05-08 23:06] VITALS: BP 96/64
[2025-05-09 07:58] VITALS: BP 117/77
[2025-05-09] MEDS: FLOMAX 0.4 MG PO (08:51)
[2025-05-09] MEDS: VITAMIN B-12 1000 MCG PO (08:51)
[2025-05-09] MEDS: ZOLOFT 100 MG PO (08:51)
[2025-05-09] MEDS: DEPAKOTE SPRINKLE 500 MG PO ×2 (08:51→21:54)
[2025-05-09] MEDS: DESENEX/MITRAZOL/ZEASORB 1 APPLIC TOPICAL ×2 (08:52→21:57)
[2025-05-09] MEDS: SINEMET 25-100 2 TABLET PO ×4 (08:54→21:59)
--- NOTE | 2025-05-09 10:02 | W.PN.HOSP.TC ---
Today's Communication/Plan
-
Continue supportive care.
Disposition with home hospice tentatively on 05/10
Assessment / Plan
Assessment / Plan
Initial Impression:
74 years old male with Parkinson disease presents with cognitive and motor decline.
Parkinson Disease with progression
Other conditions present on admit
Paroxysmal atrial fibrillation.
Anticoagulation with apixaban
Essential hypertension
Dyslipidemia
Mild intermittent asthma
Hospital course and A/Plan by problem
74 years old patient with Parkinson's disease status post deep brain stimulator implantation June 2024 presents with cognitive decline including sundowning, visual hallucinations as well as motor decline with worsening of gait, falls, concern for
right lower extremity weakness.
Persistent delirium
Initial workup with no evidence of infection or metabolic abnormalities
Nontoxic-appearing
Neurologic exam with patient alert awake and negative x 3. Resting tremor mostly pronounced in the left upper extremity with no other focal abnormality. Ataxic shuffling gait.
Imaging with MRI of the brain showed no focal intracranial abnormalities
Neurology has signed off.
Continue carbidopa levodopa at preadmission dose.
Continue Nuplazid - non-formulary. Pt own medication
Originally Seroquel dose reduced to 50 mg at bedtime, although with nighttime agitation increase back to 75 mg daily (preadmission dose 100 g daily)
Continue sertraline and clonazepam. Given periodic agitation required additional doses of lorazepam almost on a daily basis.
Suspect etiology for cognitive decline and motor dysfunction is progression of his underlying Parkinson's disease.
Initiated on Depakote with now increased dose to 500 mg twice daily pending repeated level
Monitor mental status. Monitor for sedation.
Family understands progressive disease and inquiring for hospice evaluation.
Goals of care discussion noted. Requested an updated CODE STATUS DNR
Paroxysmal atrial fibrillation.
Not on rate control medications TELLER VAULT.
Anticoagulation with Eliquis initially discontinued with hospice transition
Dyslipidemia on atorvastatin
Low end of normal range B12 level noted. Started on oral repletion.
Acute urinary retention. 05/01 PVR over 500 mL. Start bladder scan per protocol. Initiated on Flomax as of 05/01
Isolated fever 05/04 -no signs or symptoms of sepsis. Given plans for hospice I would not workup further. Fever could be related to aspiration versus other etiology.
DNR
Hospice evaluation -seen by hospice team and awaiting SNF placement with transition to hospice. Medically stable for discharge.
Anticipated Discharge: 24 - 48 hours
Subjective/Interval History
-
Date of Service: May 09, 2025
Objective Data
-
Vital Signs:
Vital Signs
Temp Pulse Resp BP Pulse Ox
97.4 F 64 16 117/77 100
05/09/25 07:58 05/09/25 07:58 05/09/25 07:58 05/09/25 07:58 05/09/25 07:58
I&O
05/08/25 05/09/25 05/10/25
06:59 06:59 06:59
Intake Total 480 / 480
Output Total 150 / 150 200 / 200
Balance 330 / 330 -200 / -200
Physical Exam
-
General: Well Developed and No Apparent Distress
HEENT: Normocephalic, Atraumatic and Moist Mucous Membranes
Respiratory: Clear to Auscultation
Cardiac: Regular Rhythm and S1/S2; Negative Murmur, Rub or Gallop
GI: Soft, Nontender, Nondistended and Normal Bowel Sounds; Negative Organomegaly
Rectal: Deferred by Provider
Musculoskeletal: No Clubbing, No Cyanosis and No Edema
Skin: Negative Rash
Neuro: Awake, Tremors, Nonfocal/Grossly Intact and Other (Disoriented. )
--- NOTE | 2025-05-09 12:43 | CM ---
Call received from Mrs Alvarez , patient's . She stated that discharge is planned for tomorrow, however she will not be able to have care givers in place until 05/11/25. She is working with [facility] who she said would be able to
have staff available by . Update to Hospitalist making him aware care givers will not be in place until 05/11/25. She stated the equipment is being delivered this afternoon, which will give them time to rearrange the furniture
before he comes home . Update to so that ancillary providers can be made aware and ambulance can be rescheduled to .
[2025-05-09 13:00] VITALS: BMI 39.3
--- NOTE | 2025-05-09 15:33 | W.PN.UPDATE ---
Update Note
Progress Note Update
pt seen, barely able to be roused. Has been declining steadily over past weeks, not at a point where he is unable to make decisions for himself. POA will need to be decision-makers.
--- NOTE | 2025-05-09 16:02 | CM ---
CM reviewed pt with CM Director
Family has hired THEOLOGY TEACHER through [facility] to start service on Thrs 05/11
Update to [facility] [phone]/Janna
Plan for dc on
Medical necessity on chart- [facility] to arrange for BLS transport for 1000 pickup
DNR on chart and will need physician signature
Discharge Disposition- home Thrs 05/11 with [facility] and private duty; BLS
Fax- [phone]
[2025-05-09 16:04] VITALS: BP 127/65
[2025-05-09] MEDS: VITAMIN D3 (cholecalciferol) 25 MCG PO (16:14)
[2025-05-09] MEDS: NON-FORMULARY ITEM 34 MG PO (16:15)
[2025-05-09] MEDS: SEROQUEL 75 MG PO (21:52)
[2025-05-09] MEDS: MELATONIN 10 MG PO (21:53)
[2025-05-09 23:29] VITALS: BP 106/92
[2025-05-10 08:06] VITALS: BP 119/76
[2025-05-10] MEDS: SINEMET 25-100 2 TABLET PO ×4 (10:11→19:57)
[2025-05-10] MEDS: FLOMAX 0.4 MG PO (10:12)
[2025-05-10] MEDS: DESENEX/MITRAZOL/ZEASORB 1 APPLIC TOPICAL ×2 (10:12→19:59)
[2025-05-10] MEDS: DEPAKOTE SPRINKLE 500 MG PO ×2 (10:12→19:58)
[2025-05-10] MEDS: VITAMIN B-12 1000 MCG PO (10:12)
[2025-05-10] MEDS: ZOLOFT 100 MG PO (10:12)
--- NOTE | 2025-05-10 12:08 | W.PN.UPDATE ---
Update Note
Progress Note Update
patient seen chart reviewed. spoke with nursing. patient is now on hospice nursing reports he has for the most part been cooperative not requiring prn's for agitation. last one received was on 05.04. current meds klonopin one mg earlier in the day
and o.5 mg in the pm seroquel 75 mg q hs depakote 500 mg bid. last level last week was mid 30's. he was lying in bed when i saw him listing to the right. with nursing was able to reposition him. he was not at all resistant. would continue with
meds as they are. if agitation recurs could inc depakote to get level over 50 or inc seroquel. patient currently on hospice and plan is for dc to home in the near future. psych will sign off. please call if you need us to return.
[2025-05-10 13:00] VITALS: BMI 39.3
--- NOTE | 2025-05-10 14:28 | W.PN.HOSP.TC ---
Today's Communication/Plan
-
Pending discharge with transition to hospice at home
Assessment / Plan
Assessment / Plan
Initial Impression:
74 years old male with Parkinson disease presents with cognitive and motor decline.
Parkinson Disease with progression
Other conditions present on admit
Paroxysmal atrial fibrillation.
Anticoagulation with apixaban
Essential hypertension
Dyslipidemia
Mild intermittent asthma
Hospital course and A/Plan by problem
74 years old patient with Parkinson's disease status post deep brain stimulator implantation June 2024 presents with cognitive decline including sundowning, visual hallucinations as well as motor decline with worsening of gait, falls, concern for
right lower extremity weakness.
Persistent delirium
Initial workup with no evidence of infection or metabolic abnormalities
Nontoxic-appearing
Neurologic exam with patient alert awake and negative x 3. Resting tremor mostly pronounced in the left upper extremity with no other focal abnormality. Ataxic shuffling gait.
Imaging with MRI of the brain showed no focal intracranial abnormalities
Neurology has signed off.
Continue carbidopa levodopa at preadmission dose.
Continue Nuplazid - non-formulary. Pt own medication
Originally Seroquel dose reduced to 50 mg at bedtime, although with nighttime agitation increase back to 75 mg daily (preadmission dose 100 g daily)
Continue sertraline and clonazepam. Given periodic agitation required additional doses of lorazepam almost on a daily basis.
Suspect etiology for cognitive decline and motor dysfunction is progression of his underlying Parkinson's disease.
Initiated on Depakote with now increased dose to 500 mg twice daily pending repeated level
Monitor mental status. Monitor for sedation.
Family understands progressive disease and inquiring for hospice evaluation.
Goals of care discussion noted. Requested an updated CODE STATUS DNR
Paroxysmal atrial fibrillation.
Not on rate control medications WIC SITE COORDINATOR.
Anticoagulation with Eliquis initially discontinued with hospice transition
Dyslipidemia on atorvastatin
Low end of normal range B12 level noted. Started on oral repletion.
Acute urinary retention. 05/01 PVR over 500 mL. Start bladder scan per protocol. Initiated on Flomax as of 05/01
Isolated fever 05/04 -no signs or symptoms of sepsis. Given plans for hospice I would not workup further. Fever could be related to aspiration versus other etiology.
DNR
Hospice evaluation -seen by hospice team and awaiting SNF placement with transition to hospice. Medically stable for discharge.
Anticipated Discharge: Within 24 hours
Subjective/Interval History
-
Date of Service: May 10, 2025
Objective Data
-
Vital Signs:
Vital Signs
Temp Pulse Resp BP Pulse Ox
97.4 F 74 16 119/76 99
05/10/25 08:06 05/10/25 08:06 05/10/25 08:06 05/10/25 08:06 05/10/25 08:06
I&O
05/09/25 05/10/25 05/11/25
06:59 06:59 06:59
Intake Total 420 / 420
Output Total 200 / 200
Balance -200 / -200 420 / 420
Physical Exam
-
General: Well Developed and No Apparent Distress
HEENT: Normocephalic, Atraumatic and Moist Mucous Membranes
Respiratory: Clear to Auscultation
Cardiac: Regular Rhythm and S1/S2; Negative Murmur, Rub or Gallop
GI: Soft, Nontender, Nondistended and Normal Bowel Sounds; Negative Organomegaly
Rectal: Deferred by Provider
Musculoskeletal: No Clubbing, No Cyanosis and No Edema
Skin: Negative Rash
Neuro: Awake, Tremors, Nonfocal/Grossly Intact and Other (Disoriented. )
[2025-05-10 15:28] VITALS: BP 107/68
[2025-05-10] MEDS: NON-FORMULARY ITEM 34 MG PO (16:44)
[2025-05-10] MEDS: VITAMIN D3 (cholecalciferol) 25 MCG PO (16:44)
[2025-05-10] MEDS: SEROQUEL 75 MG PO (19:57)
[2025-05-10] MEDS: MELATONIN 10 MG PO (19:58)
[2025-05-10 23:10] VITALS: BP 103/61
[2025-05-11 07:00] VITALS: BP 120/67
--- NOTE | 2025-05-11 09:21 | W.DS.TRANS ---
DC Summary - Territory Sales Consultant
-
Discharge Instructions:
Discharge Diagnosis/Procedures Parkinson's disease with progressive
encephalopathy and failure to thrive.
Diet No restrictions
Instructions:
Stand-Alone Forms:
Changes to Home Medications: Yes
Discharge Medications:
DC Medications w/original date entered in [employer]
carbidopa 25 mg-levodopa 100 mg tablet 2 tab PO 0800,1200,1600,1999 parkinsons 04/20/25
clonazepam 0.5 mg tablet 0.5 mg PO QPM Mental Health/Anxiety 04/20/25
clonazepam 1 mg tablet 1 mg PO DAILY@1999 Mental Health/Anxiety 04/20/25
clonazepam 1 mg tablet 1 mg PO HSPRN PRN repeat dose if wakes up during sleep 04/20/25
melatonin 5 mg tablet 10 mg PO HS Sleep 04/20/25
pimavanserin 34 mg capsule (Nuplazid) 34 mg PO DAILY@1600 Mental Health/Anxiety 04/20/25
sertraline 100 mg tablet 100 mg PO DAILY Mental Health/Anxiety 04/20/25
divalproex 125 mg capsule,delayed release sprinkle 500 mg (4 x 125 mg) PO BID #60 caps 05/11/25
quetiapine 25 mg tablet 75 mg (3 x 25 mg) PO DAILY@1999 Mental Health/Anxiety #0 tabs 05/11/25
Home Medication Changes
Discharged with initiation of home hospice
Pending Results: No
[2025-05-11] MEDS: VITAMIN B-12 1000 MCG PO (09:23)
[2025-05-11] MEDS: ZOLOFT 100 MG PO (09:23)
[2025-05-11] MEDS: FLOMAX 0.4 MG PO (09:24)
[2025-05-11] MEDS: DESENEX/MITRAZOL/ZEASORB 1 APPLIC TOPICAL (09:24)
[2025-05-11] MEDS: DEPAKOTE SPRINKLE 500 MG PO (09:24)
[2025-05-11] MEDS: SINEMET 25-100 2 TABLET PO (09:27)
--- NOTE | 2025-05-11 09:29 | CM ---
Spoke to . [facility] set for 10 am pick up driver today. sent TT to get [facility] DNR signed. CM met dgtr coming out of room. She confirms all DME at house and Hospice agency will meet patient upon arrival at home. Per dgtr hospice was to come
to [facility] today at 0840 to see patient.
PLAN: home today with hospice via ambulance.
== END 2025-05-11 10:20 | disposition hospice, home (50) | DRG 56 ==
LOC: 2 NORTH 08:41
PROVIDERS: Hospitalist; Internal Medicine; Physician Assistant; Psychiatry & Neurology Psychiatry; ADMITTING PHYSICIAN Hospitalist; ATTENDING PHYSICIAN Internal Medicine; CONSULT PHYSICIAN Physical Medicine & Rehabilitation; CONSULT PHYSICIAN Psychiatry & Neurology Neurology; CONSULT PHYSICIAN Psychiatry & Neurology Psychiatry; EMERGENCY PHYSICIAN Student in an Organized Health Care Education/Training Program
DX: G20.A1 Parkinson's disease without dyskinesia, without mention of fluctuations (principal); G93.41 Metabolic encephalopathy; F05 Delirium due to known physiological condition; F02.82 Dementia in other diseases classified elsewhere, unspecified severity, with psychotic disturbance; F02.818 Dementia in other diseases classified elsewhere, unspecified severity, with other behavioral disturbance; Z79.01 Long term (current) use of anticoagulants; I48.0 Paroxysmal atrial fibrillation; I10 Essential (primary) hypertension; J45.20 Mild intermittent asthma, uncomplicated; R44.1 Visual hallucinations; Z66 Do not resuscitate; R62.7 Adult failure to thrive; Z68.39 Body mass index [BMI] 39.0-39.9, adult; Z79.899 Other long term (current) drug therapy; G31.83 Neurocognitive disorder with Lewy bodies; G47.00 Insomnia, unspecified; R29.6 Repeated falls
CPT/HCPCS: 70551; 71046; 80048; 80053; 80164; 81003; 82607; 82728; 82746; 83036; 83880; 84443; 85025; 85027; 86803; 96360; 97163; 97167; 97530; 97535; 99284